=== PATIENT | male | born 1940 | race Caucasian/White ===

== ENCOUNTER 2021-10-09 07:17 | Inpatient (IN) ==
[2021-10-09] MEDS ORDERED: ACETAMINOPHEN 500 MG TABLET PO ONE (07:49)
[2021-10-09] MEDS ORDERED: IPRATROPIUM/ALBUTEROL 3 ML AMPUL.NEB NEB PRN (07:49)
--- NOTE | 2021-10-09 07:54 | Emergency Department Note ---
HPI General Chief complaint: Weakness Stated complaint: Pain throughout body Time Seen by Provider: 10/09/21 07:37 Source: EMS Mode of arrival: EMS Limitations: no limitations History of Present Illness HPI Narrative: He has been fully vaccinated against COVID-19Patient is a 81-year-old gentleman who arrives emergency department myalgias. The patient says since yesterday he has been having diffuse myalgias his legs hips shoulders neck and back. This was gradual in onset and has been waxing and waning in intensity. He notes that moving his extremities makes the pain worse. He recalls a similar episode a few years ago but cannot recall what caused it. He denies any associated fever or chills. He does not feel short of breath but notes that he has been having dyspnea on exertion recently and increased his oxygen use from nightly to throughout the day about 2 weeks ago. He does not have any associated chest pain or abdominal pain. He denies any recent nausea or vomiting. He tried taking Tylenol or ibuprofen last night without any improvement in his symptoms. Related Data Home Medications Medication Instructions Recorded Confirmed aspirin 81 mg tablet,delayed 81 mg PO QDAY 10/06/15 08/17/21 release calcium 1000/magnesium 500 1 tab PO QDAY 02/05/19 08/17/21 cholecalciferol (vitamin D3) 125 125 mcg PO QDAY 02/21/20 08/17/21 mcg (5,000 unit) tablet amlodipine 5 mg tablet 10 mg PO QDAY tab 08/10/21 08/17/21 isosorbide mononitrate 60 mg 60 mg PO QDAY tab 08/10/21 08/17/21 tablet,extended release 24 hr losartan 50 mg tablet 50 mg PO BID tab 08/10/21 08/17/21 Previous Rx's Medication Instructions Recorded finger oximeter #1 ea 05/10/19 nitroglycerin 0.4 mg sublingual 0.4 mg SUBLINGUAL Q5M PRN #25 tab 03/17/20 tablet albuterol sulfate 2.5 mg (3 mL) INHALATION Q6H PRN 04/16/20 #1080 ml clobetasol 0.05 % topical ointment 1 applic TOPICAL BID #60 g 11/04/20 folic acid 1 mg tablet 1 mg PO BID #180 tab 02/11/21 magnesium oxide 400 mg PO QDAY #90 cap 02/18/21 atorvastatin 40 mg tablet 40 mg PO QHS #90 tab 02/25/21 carvedilol 25 mg tablet 25 mg PO BID #180 tab 02/25/21 levothyroxine 25 mcg tablet 25 mcg PO QDAY #90 tab 02/25/21 pantoprazole 40 mg tablet,delayed 40 mg PO QDAY #90 tab 02/25/21 release prednisone 5 mg tablet 5 mg PO QDAY #90 tab 05/04/21 sodium bicarbonate 650 mg tablet 650 mg PO BID #180 tab 05/06/21 hydrochlorothiazide 25 mg tablet 25 mg PO QAM #90 tab 08/27/21 furosemide 20 mg tablet 20 mg PO QAM PRN #20 tab 09/17/21 Allergies Allergy/AdvReac Type Severity Reaction Status Date / Time levofloxacin [From Levaquin] AdvReac Mild Hypotension Verified 10/09/21 14:34 Review of Systems ROS ROS Narrative: Narrative: All systems ED: reviewed and negative except as stated. Constitutional: Denies fever or chills Respiratory: Denies cough PFSH Narrative Patient History Narrative: Narrative: Medical/Surgical/Family History All Active Problems (Updated 10/09/21 @ 15:10 by Kael Barba DO) Community acquired pneumonia (Acute) Bilateral lower extremity edema (Acute) Dyspnea on exertion (Acute) Medicare annual wellness visit, subsequent (Acute) Acute pain of left shoulder (Acute) Toe fracture, left (Acute) Borderline low blood pressure determined by examination (Acute) Iatrogenic adrenal insufficiency (Chronic) Cellulitis (Acute) Injury of left foot (Acute) Right foot injury (Acute) Secondary hyperparathyroidism of renal origin (Chronic) Anemia due to stage 3a chronic kidney disease (Chronic) Osteopenia (Acute) Medicare annual wellness visit, initial (Acute) Paronychia (Acute) CHF (congestive heart failure) (Chronic) Fall (Acute) Chronic kidney disease (CKD) stage G3a/A2, moderately decreased glomerular filtration rate (GFR) between 45-59 mL/min/1.73 square meter and albuminuria creatinine ratio between 30-299 mg/g (Chronic) Colon cancer screening (Acute) Renal artery stenosis in 1 of 2 vessels (Chronic) Diarrhea (Acute) Alcohol abuse (Chronic) Risk for falls (Chronic) Nocturnal hypoxemia (Chronic) Localized edema due to fluid overload (Chronic) Steroid dependent (Chronic) PAF (paroxysmal atrial fibrillation) (Chronic) Abdominal pain (Acute) Finger pain (Chronic) Colon polyp (Chronic) Fatigue (Chronic) 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) Erosive gastritis (Chronic) 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) Upper gastrointestinal hemorrhage (Chronic) Acute exacerbation of chronic obstructive airways disease (Chronic) Bronchitis (Chronic) Community acquired pneumonia (Chronic) Foot drop, right (Chronic) Metabolic Syndrome X (Chronic) Cubital tunnel syndrome of both upper extremities (Chronic) Hyperglycemia (Chronic) Hypertension (Chronic) Hypomagnesemia (Chronic) Gout (Chronic) Chronic obstructive pulmonary disease (Chronic) Hypertensive renal disease (Chronic) Hx of esophagogastroduodenoscopy (Chronic 12/17/14) Hx of colonoscopy (Chronic) Vitamin D deficiency (Chronic) Vitamin B 12 deficiency (Chronic) Thrombocytopenia (Chronic) Schatzki's ring (Chronic) Psoriasis (Chronic) Premature atrial contractions (Chronic) Polymyalgia rheumatica (Chronic) PNA (pneumonia) (Chronic) Peripheral vascular disease (Chronic) Paresthesia (Chronic) Overweight (Chronic) Neck pain (Chronic) Macrocytosis (Chronic 01/25/11) Low back pain (Chronic) Long-term current use of steroids (Chronic) Knee pain (Chronic) Hypothyroidism (acquired) (Chronic) Hypertension, essential (Chronic) Hyperlipidemia (Chronic) Hyperkalemia (Chronic) Hip pain (Chronic) Hx of gout (Chronic) Gastroesophageal reflux (Chronic) Gastritis (Chronic) Fatty liver disease, nonalcoholic (Chronic) Emphysema lung (Chronic) Dysmetabolic syndrome X (Chronic) Dermatitis (Chronic) DJD (degenerative joint disease) (Chronic) Simple cyst of kidney (Chronic) Coronary artery disease (Chronic 08/22/12) Colon polyp (Chronic 12/16/14) Vascular claudication (Chronic 04/01/13) Carotid stenosis (Chronic) Carotid bruit (Chronic 02/16/13) Atherosclerosis (Chronic) Anemia (Chronic) Abnormal transaminases (Chronic) Medical History Abnormal transaminases Acute exacerbation of chronic obstructive airways disease Acute exacerbation of chronic obstructive airways disease Resolved Continue albuterol nebs as needed Continue prednisone 10 mg daily Follows with pulmonology Acute kidney failure (08/21/08) Alcohol abuse Anemia Macrocytic. I believe it is improving. Labs from 12/05 look hemoconcentrated. Status post 1 unit PRBC and IV iron infusion in October 2019 Continue iron and vitamin C Continue to monitor CBC closely. Check CBC in 1 month. Iron studies are scheduled to be checked in 2 months by nephrology. Atherosclerosis Atrial fibrillation wWle in hospital with pneumonia Atrial fibrillation Carotid bruit (02/16/13) left>right Carotid stenosis Cellulitis Cellulitis Cerebrovascular accident Chest pain Recorded 08/14/12-also on 01/04/2007, 04/16/06; 12/21/10 Chronic obstructive pulmonary disease Follows with pulmonology. We will see them in 2 weeks. Does not qualify for oxygen concentrator based on ambulatory O2 today. Colon cancer screening Colonoscopy is planned, but we will have to cancel this until he gets his CABG. Colon polyp (12/16/14) TA HP Colon polyp 2014 Community acquired pneumonia Resolved with Augmentin and azithromycin Contusion of head COPD (chronic obstructive pulmonary disease) with chronic bronchitis Follows with pulmonology. Albuterol as needed Coronary artery disease (08/22/12) Status post PCI Continue medical management with aspirin, statin, beta-karla Follows with cardiology Cubital tunnel syndrome of both upper extremities Dermatitis 05/2011-chronic, of the lower extremities DJD (degenerative joint disease) Dysmetabolic syndrome X Emphysema lung Erosive gastritis Fall Ecchymosis on bilateral arms. Left arm with healing skin slip. Walker recommended at all times (currently using a cane). He has handrails on all his stairs at home. Fatty liver disease, nonalcoholic Foot drop, right Gastritis Gastroesophageal reflux Gout Hip pain recorded 03/23/08-bilateral Hx of gout Hx of urinary tract infection Hyperglycemia Hyperkalemia Hyperlipidemia Hypertension Hypertension, essential Moderately well-controlled on amlodipine 5 mg daily, Coreg 25 mg twice daily, hydrochlorothiazide 25 mg daily (increased last visit), and losartan 50 mg nightly. Encouraged improved compliance with low-sodium diet Hypertensive renal disease BP at goal in the clinic today imp to keep BP log given multiple medical issues Goal BP is less than 140/90 ct current medications follow low sodium diet exercise if possible Hypomagnesemia Hypothyroidism (acquired) TSH mildly elevated. Educated patient on timing of levothyroxine dose Recheck TSH in 6 weeks Injury of left foot Internal derangement of knee recorded 12/30/10 patellor erosion secondary to Cerclage wire Knee pain 05/2011-post tka Long-term current use of steroids Prednisone and triamcinolone Low back pain 05/2011 chronic low back pain Macrocytosis (01/25/11) Medicare annual wellness visit, initial Medicare annual wellness visit, subsequent Metabolic Syndrome X Myocardial infarction acute (12/22/10) Neck pain recorded 11/16/2010 OA Nocturnal hypoxemia Recommend patient continue oxygen supplementation at night Occlusion of right internal carotid artery Overweight Palpitations Paresthesia Right Leg Peripheral vascular disease severe. bilateral iliac artery stents PNA (pneumonia) Aspiration versus CAP Treated with Unasyn and azithromycin in the hospital, and then Augmentin on discharge. Completing Augmentin tomorrow. Resolved. Polymyalgia rheumatica Increased back to prednisone 10 mg daily as above Post-polypectomy bleeding Resolved Premature atrial contractions Psoriasis Most noticeable pretibial areas Psoriatic arthritis Pretibial psoriasis skin lesions Renal artery stenosis in 1 of 2 vessels Right renal artery 50 to 70% stenosis. Blood pressure currently well controlled, but consider further work-up and possible stenting if this becomes a problem Right foot injury Risk for falls Schatzki's ring Simple cyst of kidney bilateral Thoracic back pain Thrombocytopenia H/O Upper gastrointestinal hemorrhage post gastric polypectomy Vascular claudication (04/01/13) Legs Vitamin B 12 deficiency H/O Vitamin D deficiency H/O Surgical History H/O cardiac catheterization (~11/15/19) And coronary angiography by Dr. Jarrod Griffin History of carotid endarterectomy 02/2015 History of intravascular stent placement 11/2010 Multi-RCA 03/2006 and right iliac stent. Also [place] x 2 RCA + PRO/RCA 11/2010 RE do bilateral legs 12/2014- Dr Jon Hx of angioplasty Hx of cardiac catheterization 12/21/2010 and PCI Hx of cataract surgery 12/2005 Hx of colonoscopy 08/30/07-AP, HP. 12/16/14-TA & HP-5 year follow up. Hx of coronary angioplasty Hx of esophagogastroduodenoscopy (12/17/14) 12/17/14-erosive esophagitis and stricture. 03/16/17-gastric polypectomy and erosive gastritis. 03/17/17-GI bleed post polypectomy Hx of foot surgery Ankle brachial indices Hx of knee surgery recorded 04/02/87 and 11/01--Right 10/31/12 had hardware removed from right knee Hx of plastic surgery 1960' nose Hx of thumb surgery Hx of tonsillectomy recorded 04/02/87 Hx of total knee arthroplasty 2012, 12/2008 Right knee x's 3 2007 Family History mother Malignant neoplasm, Onset Age: 72 father Cerebrovascular accident (CVA), Onset Age: 49 Social History Smoking Status: Former smoker Alcohol Intake Frequency: a few times a month Substance Use: does not use Exam Narrative Narrative: I reviewed the vital signs. Gen -patient is awake and alert and in no acute distress. The patient is well groomed. HEENT -head is atraumatic. There is no conjunctival pallor or scleral icterus. Mucous membranes are moist. CV -S1-S2 regular rate and rhythm. Peripheral pulses are palpable. There is no JVD. Resp -breathing is nonlabored. Lungs are clear to auscultation bilaterally. There is no cyanosis. GI - Abdomen is soft and nontender to palpation. There is no guarding or rebound tenderness. Derm -skin is warm and dry. There is no visible rash. MSK -present extremities are atraumatic. Psych -patient has appropriate affect. The patient does not appear internally stimulated. Neuro -patient answers questions appropriately with fluent speech. Patient moves all present extremities equally. General Limitations: no limitations Course Vital Signs Vital signs: Vital Signs Temperature 98.0 F 10/09/21 07:19 Pulse Rate 90 10/09/21 07:19 Respiratory Rate 18 10/09/21 07:19 Blood Pressure 168/62 10/09/21 07:19 Pulse Oximetry (%) 93 10/09/21 07:19 Temperature 98.8 F 10/09/21 14:26 Pulse Rate 76 10/09/21 14:26 Respiratory Rate 17 10/09/21 14:26 Blood Pressure 181/71 10/09/21 14:26 Pulse Oximetry (%) 93 10/09/21 14:26 [facility] Narrative Medical decision making narrative: Patient presents with generalized myalgias. He is also had an increase in his baseline oxygen requirement. Chest x-ray reveals right-sided infiltrate. Patient to need to have found weakness and fatigue associated with his symptoms and was unable to arise under his own power from the hospital bed. Given this his new oxygen requirement and myalgias I recommend he be admitted for inpatient treatment of his community-acquired pneumonia. He was agreeable with the plan. I discussed the patient's history examination and diagnostic findings with Dr. Musa, who agrees with the plan of care and accepts admission. Lab Data Lab results reviewed: Yes I reviewed the patient's lab results. Result diagrams: 10/09/21 07:59 Labs: Lab Results 10/09/21 10/09/21 10/09/21 Range/Units 07:50 07:50 07:59 WBC 5.4 (4.5-11.0) K/mcL RBC 3.04 L (4.63-6.08) M/mcL Hgb 8.7 L (13.7-17.5) g/dL Hct 27.5 L (40.1-51.0) % POC Hct (41-55) % MCV 90.5 (80.0-100.0) fL MCH 28.6 (26.0-34.0) pg MCHC 31.6 (31.0-36.0) g/dL RDW 13.9 (11.5-14.5) % Plt Count 219 (140-440) K/mcL MPV 10.4 (7.4-10.4) fL Neut % (Auto) 55.8 (38.0-78.0) % Lymph % (Auto) 23.4 (15.5-49.0) % Woodward % (Auto) 19.5 H (1.0-12.0) % Eos % (Auto) 1.1 (0.0-7.0) % Baso % (Auto) 0.2 (0.0-2.0) % Lymph # (Auto) 1.26 L (1.50-4.80) K/mcL Woodward # (Auto) 1.05 H (0.10-0.90) K/mcL Eos # (Auto) 0.06 (0.00-0.70) K/mcL Baso # (Auto) 0.01 (0.00-0.30) K/mcL Absolute Neutrophils 3.00 (1.80-8.00) K/mcL POC Sodium (133-145) mEq/L POC Potassium (3.3-5.1) mEql/L POC Chloride (96-108) mEq/L POC Total CO2 (22-30) mmol/L POC BUN (6-20) mg/dL POC Creatinine (0.6-1.2) mg/dL POC Glucose (70-105) mg/dL POC WB Ioniz Calcium (1.16-1.32) mmEq/L Magnesium (1.6-2.5) mg/dL Total Creatine Kinase (24-195) U/L C-Reactive Protein 10.20 H (0.03-0.80) mg/dL Procalcitonin 0.19 H (<0.10) ng/mL 10/09/21 Range/Units 07:59 WBC (4.5-11.0) K/mcL RBC (4.63-6.08) M/mcL Hgb (13.7-17.5) g/dL Hct (40.1-51.0) % POC Hct 27 L (41-55) % MCV (80.0-100.0) fL MCH (26.0-34.0) pg MCHC (31.0-36.0) g/dL RDW (11.5-14.5) % Plt Count (140-440) K/mcL MPV (7.4-10.4) fL Neut % (Auto) (38.0-78.0) % Lymph % (Auto) (15.5-49.0) % Woodward % (Auto) (1.0-12.0) % Eos % (Auto) (0.0-7.0) % Baso % (Auto) (0.0-2.0) % Lymph # (Auto) (1.50-4.80) K/mcL Woodward # (Auto) (0.10-0.90) K/mcL Eos # (Auto) (0.00-0.70) K/mcL Baso # (Auto) (0.00-0.30) K/mcL Absolute Neutrophils (1.80-8.00) K/mcL POC Sodium 141 (133-145) mEq/L POC Potassium 3.6 (3.3-5.1) mEql/L POC Chloride 101 (96-108) mEq/L POC Total CO2 26 (22-30) mmol/L POC BUN 24 H (6-20) mg/dL POC Creatinine 1.3 H (0.6-1.2) mg/dL POC Glucose 94 (70-105) mg/dL POC WB Ioniz Calcium 1.17 (1.16-1.32) mmEq/L Magnesium 1.6 (1.6-2.5) mg/dL Total Creatine Kinase 57 (24-195) U/L C-Reactive Protein (0.03-0.80) mg/dL Procalcitonin (<0.10) ng/mL ED POC Tests ED POC Tests: MAGDA - Influenza A Negative MAGDA - Influenza B Negative MAGDA - SARS Antigen Negative Discharge Plan Patient/Caregiver Discharge Instructions Pt seen by GROUP LEADER/PA only: No Clinical Impression: Community acquired pneumonia Patient Disposition: Xfer As Inpt ([facility]) Condition: Good Discharge Date/Time: 10/09/21 14:23
[2021-10-09 08:05] LABS: POC Blood Urea Nitrogen 24 mg/dL (6-20); POC CO2 26 mmol/L (22-30); POC Calcium, Ionized 1.17 mmEq/L (1.16-1.32); POC Chloride 101 mEq/L (96-108); POC Creatinine 1.3 mg/dL (0.6-1.2); POC Glucose, Random 94 mg/dL (70-105); POC Hematocrit 27 % (41-55); POC Potassium 3.6 mEql/L (3.3-5.1); POC Sodium 141 mEq/L (133-145)
[2021-10-09 09:03] LABS: Creatine Kinase 57 U/L (24-195)
[2021-10-09 09:10] LABS: Basophils # (Auto) 0.01 K/mcL (0.00-0.30); Basophils % (Auto) 0.2 % (0.0-2.0); Eosinophils # (Auto) 0.06 K/mcL (0.00-0.70); Eosinophils % (Auto) 1.1 % (0.0-7.0); Hematocrit 27.5 % (40.1-51.0); Hemoglobin 8.7 g/dL (13.7-17.5); Lymphocytes # (Auto) 1.26 K/mcL (1.50-4.80); Lymphocytes % (Auto) 23.4 % (15.5-49.0); Mean Cell Volume 90.5 fL (80.0-100.0); Mean Corpuscular HGB Conc 31.6 g/dL (31.0-36.0); Mean Platelet Volume 10.4 fL (7.4-10.4); Monocytes # (Auto) 1.05 K/mcL (0.10-0.90); Monocytes % (Auto) 19.5 % (1.0-12.0); Neutrophils % (Auto) 55.8 % (38.0-78.0); Platelet Count 219 K/mcL (140-440); RBC 3.04 M/mcL (4.63-6.08); Red Cell Distribution Width 13.9 % (11.5-14.5); WBC 5.4 K/mcL (4.5-11.0)
--- NOTE | 2021-10-09 10:18 | XRay Report ---
CLINICAL INFORMATION: Pneumonia COMPARISON: 08/10/2021 TECHNIQUE: PA and Lateral views FINDINGS: The heart size, mediastinum and pulmonary vessels are unremarkable. Small left basilar infiltrate has progressed from previous study. Small left pleural effusion noted. Small right basilar infiltrate has developed. There are no effusions. The bones and soft tissues are within normal limits. IMPRESSION: New small right basilar infiltrate. Small left basilar infiltrate and effusion slightly progressed. Interpreted and Authenticated by: Murphy Temple 10/09/21
[2021-10-09] MEDS ORDERED: cefTRIAXone 1 GM VIAL IV ONE (11:55)
[2021-10-09] MEDS ORDERED: DOXYCYCLINE 100 MG in DEXTROSE 5% IN WATER 100 ML IV ONE (11:55)
--- NOTE | 2021-10-09 13:41 | Internal Med History&Physical ---
HPI History of Present Illness Patient information: Note initiated : 10/09/21 at 1:33 pm Service Date, if different from initiated Date: [] Patient: Kike Ramirez a 81 y/o M admitted on for Pain throughout body. Chief Complaint: [] History of present illness: Mr. Ramirez is a 81 year old M Presents to ED with body aches as well as shortness of breath. He has been using his oxygen during the day over the past week typically only uses at night. Has a history of COPD. Also has a history of polymyalgia rheumatica for which she is on prednisone. He complains of chills but denies fever. He said he does not have much of a cough. In the ED he had sats 84% but jumped up to 4 L and then brought back down to 2 L. Afebrile. Chest x-ray with new small right basilar infiltrate small left basal infiltrate. When asked about aspiration he says occasionally food or drink feels like he goes down the wrong pipe. Review of Systems: Pertinent positives as above. Denies headache/fever/nausea/vomiting/chest or abdominal pain/diarrhea. Remaining 10 point review of system reviewed negative PFSH PFSH All Active Problems Bilateral lower extremity edema (Acute) Dyspnea on exertion (Acute) Medicare annual wellness visit, subsequent (Acute) Acute pain of left shoulder (Acute) Toe fracture, left (Acute) Borderline low blood pressure determined by examination (Acute) Iatrogenic adrenal insufficiency (Chronic) Cellulitis (Acute) Injury of left foot (Acute) Right foot injury (Acute) Secondary hyperparathyroidism of renal origin (Chronic) Anemia due to stage 3a chronic kidney disease (Chronic) Osteopenia (Acute) Medicare annual wellness visit, initial (Acute) Paronychia (Acute) CHF (congestive heart failure) (Chronic) Fall (Acute) Chronic kidney disease (CKD) stage G3a/A2, moderately decreased glomerular filtration rate (GFR) between 45-59 mL/min/1.73 square meter and albuminuria creatinine ratio between 30-299 mg/g (Chronic) Colon cancer screening (Acute) Renal artery stenosis in 1 of 2 vessels (Chronic) Diarrhea (Acute) Alcohol abuse (Chronic) Risk for falls (Chronic) Nocturnal hypoxemia (Chronic) Localized edema due to fluid overload (Chronic) Steroid dependent (Chronic) PAF (paroxysmal atrial fibrillation) (Chronic) Abdominal pain (Acute) Finger pain (Chronic) Colon polyp (Chronic) Fatigue (Chronic) 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) Erosive gastritis (Chronic) 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) Upper gastrointestinal hemorrhage (Chronic) Acute exacerbation of chronic obstructive airways disease (Chronic) Bronchitis (Chronic) Community acquired pneumonia (Chronic) Foot drop, right (Chronic) Metabolic Syndrome X (Chronic) Cubital tunnel syndrome of both upper extremities (Chronic) Hyperglycemia (Chronic) Hypertension (Chronic) Hypomagnesemia (Chronic) Gout (Chronic) Chronic obstructive pulmonary disease (Chronic) Hypertensive renal disease (Chronic) Hx of esophagogastroduodenoscopy (Chronic 12/17/14) Hx of colonoscopy (Chronic) Vitamin D deficiency (Chronic) Vitamin B 12 deficiency (Chronic) Thrombocytopenia (Chronic) Schatzki's ring (Chronic) Psoriasis (Chronic) Premature atrial contractions (Chronic) Polymyalgia rheumatica (Chronic) PNA (pneumonia) (Chronic) Peripheral vascular disease (Chronic) Paresthesia (Chronic) Overweight (Chronic) Neck pain (Chronic) Macrocytosis (Chronic 01/25/11) Low back pain (Chronic) Long-term current use of steroids (Chronic) Knee pain (Chronic) Hypothyroidism (acquired) (Chronic) Hypertension, essential (Chronic) Hyperlipidemia (Chronic) Hyperkalemia (Chronic) Hip pain (Chronic) Hx of gout (Chronic) Gastroesophageal reflux (Chronic) Gastritis (Chronic) Fatty liver disease, nonalcoholic (Chronic) Emphysema lung (Chronic) Dysmetabolic syndrome X (Chronic) Dermatitis (Chronic) DJD (degenerative joint disease) (Chronic) Simple cyst of kidney (Chronic) Coronary artery disease (Chronic 08/22/12) Colon polyp (Chronic 12/16/14) Vascular claudication (Chronic 04/01/13) Carotid stenosis (Chronic) Carotid bruit (Chronic 02/16/13) Atherosclerosis (Chronic) Anemia (Chronic) Abnormal transaminases (Chronic) Medical History Abnormal transaminases Acute exacerbation of chronic obstructive airways disease Acute exacerbation of chronic obstructive airways disease Resolved Continue albuterol nebs as needed Continue prednisone 10 mg daily Follows with pulmonology Acute kidney failure (08/21/08) Alcohol abuse Anemia Macrocytic. I believe it is improving. Labs from 12/05 look hemoconcentrated. Status post 1 unit PRBC and IV iron infusion in October 2019 Continue iron and vitamin C Continue to monitor CBC closely. Check CBC in 1 month. Iron studies are scheduled to be checked in 2 months by nephrology. Atherosclerosis Atrial fibrillation wWle in hospital with pneumonia Atrial fibrillation Carotid bruit (02/16/13) left>right Carotid stenosis Cellulitis Cellulitis Cerebrovascular accident Chest pain Recorded 08/14/12-also on 01/04/2007, 04/16/06; 12/21/10 Chronic obstructive pulmonary disease Follows with pulmonology. We will see them in 2 weeks. Does not qualify for oxygen concentrator based on ambulatory O2 today. Colon cancer screening Colonoscopy is planned, but we will have to cancel this until he gets his CABG. Colon polyp (12/16/14) TA HP Colon polyp 2014 Community acquired pneumonia Resolved with Augmentin and azithromycin Contusion of head COPD (chronic obstructive pulmonary disease) with chronic bronchitis Follows with pulmonology. Albuterol as needed Coronary artery disease (08/22/12) Status post PCI Continue medical management with aspirin, statin, beta-karla Follows with cardiology Cubital tunnel syndrome of both upper extremities Dermatitis 05/2011-chronic, of the lower extremities DJD (degenerative joint disease) Dysmetabolic syndrome X Emphysema lung Erosive gastritis Fall Ecchymosis on bilateral arms. Left arm with healing skin slip. Walker recommended at all times (currently using a cane). He has handrails on all his stairs at home. Fatty liver disease, nonalcoholic Foot drop, right Gastritis Gastroesophageal reflux Gout Hip pain recorded 03/23/08-bilateral Hx of gout Hx of urinary tract infection Hyperglycemia Hyperkalemia Hyperlipidemia Hypertension Hypertension, essential Moderately well-controlled on amlodipine 5 mg daily, Coreg 25 mg twice daily, hydrochlorothiazide 25 mg daily (increased last visit), and losartan 50 mg nightly. Encouraged improved compliance with low-sodium diet Hypertensive renal disease BP at goal in the clinic today imp to keep BP log given multiple medical issues Goal BP is less than 140/90 ct current medications follow low sodium diet exercise if possible Hypomagnesemia Hypothyroidism (acquired) TSH mildly elevated. Educated patient on timing of levothyroxine dose Recheck TSH in 6 weeks Injury of left foot Internal derangement of knee recorded 12/30/10 patellor erosion secondary to Cerclage wire Knee pain 05/2011-post tka Long-term current use of steroids Prednisone and triamcinolone Low back pain 05/2011 chronic low back pain Macrocytosis (01/25/11) Medicare annual wellness visit, initial Medicare annual wellness visit, subsequent Metabolic Syndrome X Myocardial infarction acute (12/22/10) Neck pain recorded 11/16/2010 OA Nocturnal hypoxemia Recommend patient continue oxygen supplementation at night Occlusion of right internal carotid artery Overweight Palpitations Paresthesia Right Leg Peripheral vascular disease severe. bilateral iliac artery stents PNA (pneumonia) Aspiration versus CAP Treated with Unasyn and azithromycin in the hospital, and then Augmentin on discharge. Completing Augmentin tomorrow. Resolved. Polymyalgia rheumatica Increased back to prednisone 10 mg daily as above Post-polypectomy bleeding Resolved Premature atrial contractions Psoriasis Most noticeable pretibial areas Psoriatic arthritis Pretibial psoriasis skin lesions Renal artery stenosis in 1 of 2 vessels Right renal artery 50 to 70% stenosis. Blood pressure currently well controlled, but consider further work-up and possible stenting if this becomes a problem Right foot injury Risk for falls Schatzki's ring Simple cyst of kidney bilateral Thoracic back pain Thrombocytopenia H/O Upper gastrointestinal hemorrhage post gastric polypectomy Vascular claudication (04/01/13) Legs Vitamin B 12 deficiency H/O Vitamin D deficiency H/O Surgical History H/O cardiac catheterization (~11/15/19) And coronary angiography by Dr. Jarrod Griffin History of carotid endarterectomy 02/2015 History of intravascular stent placement 11/2010 Multi-RCA 03/2006 and right iliac stent. Also Stanet x 2 RCA + PRO/RCA 11/2010 RE do bilateral legs 12/2014- Dr Jon Hx of angioplasty Hx of cardiac catheterization 12/21/2010 and PCI Hx of cataract surgery 12/2005 Hx of colonoscopy 08/30/07-AP, HP. 12/16/14-TA & HP-5 year follow up. Hx of coronary angioplasty Hx of esophagogastroduodenoscopy (12/17/14) 12/17/14-erosive esophagitis and stricture. 03/16/17-gastric polypectomy and erosive gastritis. 03/17/17-GI bleed post polypectomy Hx of foot surgery Ankle brachial indices Hx of knee surgery recorded 04/02/87 and 11/01--Right 10/31/12 had hardware removed from right knee Hx of plastic surgery 1960's nose Hx of thumb surgery Hx of tonsillectomy recorded 04/02/87 Hx of total knee arthroplasty 2011, 12/2008 Right knee x's 3 2007 Family History mother Malignant neoplasm, Onset Age: 72 father Cerebrovascular accident (CVA), Onset Age: 49 Social History household members: alone housing: house lives independently: Yes marital status: education level: high school occupational status: retired smoking status: Former smoker alcohol intake frequency: a few times a month substance use type: does not use MEDS/ALLERGIES Home Medications and Allergies Home Medications Medication Instructions Recorded Confirmed Type aspirin 81 mg tablet,delayed 81 mg PO QDAY 10/06/15 08/17/21 History release calcium 1000/magnesium 500 1 tab PO QDAY 02/05/19 08/17/21 History finger oximeter #1 ea 05/10/19 08/17/21 Rx cholecalciferol (vitamin D3) 125 125 mcg PO QDAY 02/21/20 08/17/21 History mcg (5,000 unit) tablet nitroglycerin 0.4 mg sublingual 0.4 mg SUBLINGUAL Q5M PRN #25 tab 03/17/20 08/17/21 Rx tablet albuterol sulfate 2.5 mg (3 mL) INHALATION Q6H PRN 04/16/20 08/17/21 Rx #1080 ml clobetasol 0.05 % topical ointment 1 applic TOPICAL BID #60 g 11/04/20 08/17/21 Rx folic acid 1 mg tablet 1 mg PO BID #180 tab 02/11/21 08/17/21 Rx magnesium oxide 400 mg PO QDAY #90 cap 02/18/21 08/17/21 Rx atorvastatin 40 mg tablet 40 mg PO QHS #90 tab 02/25/21 08/17/21 Rx carvedilol 25 mg tablet 25 mg PO BID #180 tab 02/25/21 08/17/21 Rx levothyroxine 25 mcg tablet 25 mcg PO QDAY #90 tab 02/25/21 08/17/21 Rx pantoprazole 40 mg tablet,delayed 40 mg PO QDAY #90 tab 02/25/21 08/17/21 Rx release prednisone 5 mg tablet 5 mg PO QDAY #90 tab 05/04/21 08/17/21 Rx sodium bicarbonate 650 mg tablet 650 mg PO BID #180 tab 05/06/21 08/17/21 Rx amlodipine 5 mg tablet 10 mg PO QDAY tab 08/10/21 08/17/21 History isosorbide mononitrate 60 mg 60 mg PO QDAY tab 08/10/21 08/17/21 History tablet,extended release 24 hr losartan 50 mg tablet 50 mg PO BID tab 08/10/21 08/17/21 History hydrochlorothiazide 25 mg tablet 25 mg PO QAM #90 tab 08/27/21 Rx furosemide 20 mg tablet 20 mg PO QAM PRN #20 tab 09/17/21 Rx Allergies Allergy/AdvReac Type Severity Reaction Status Date / Time levofloxacin [From [facility]] AdvReac Severe Hypotension Verified 10/09/21 07:18 EXAM Constitutional Vitals: Temp Pulse Resp BP Pulse Ox 98.0 F 67 18 135/62 99 10/09/21 07:19 10/09/21 12:01 10/09/21 12:15 10/09/21 12:01 10/09/21 12:15 Exam: General: Alert, Awake, No acute Distress Eyes/N/T: EOMI, PERRL, dry MM Head/Neck: neck supple, normocephalic atraumatic CV: RRR, No murmurs, normal s1/s2 Pulm: Clear b/l laterally, no wheezing/rhonchi/rales Abd: soft, nontender, +BS x4 Ext: no clubbing/cyanosis/edema Neuro: Alert, no focal deficits, moves all extremities, CN 2-12 grossly intact, symmetrical strength b/l upper/lower, sensations intact b/l upper/lower Skin: warm/dry DATA Data Completed and Pending Labs: Labs from last 24 hours 10/09/21 10/09/21 10/09/21 07:59 07:59 07:50 WBC 5.4 RBC 3.04 L Hgb 8.7 L Hct 27.5 L POC Hct 27 L MCV 90.5 MCH 28.6 MCHC 31.6 RDW 13.9 Plt Count 219 MPV 10.4 Neut % (Auto) 55.8 Lymph % (Auto) 23.4 Wheeler % (Auto) 19.5 H Eos % (Auto) 1.1 Baso % (Auto) 0.2 Lymph # (Auto) 1.26 L Wheeler # (Auto) 1.05 H Eos # (Auto) 0.06 Baso # (Auto) 0.01 Absolute Neutrophils 3.00 ESR Pending POC Sodium 141 POC Potassium 3.6 POC Chloride 101 POC Total CO2 26 POC BUN 24 H POC Creatinine 1.3 H POC Glucose 94 POC WB Ioniz Calcium 1.17 Magnesium 1.6 Total Creatine Kinase 57 C-Reactive Protein Procalcitonin 10/09/21 10/09/21 07:50 07:50 WBC RBC Hgb Hct POC Hct MCV MCH MCHC RDW Plt Count MPV Neut % (Auto) Lymph % (Auto) Wheeler % (Auto) Eos % (Auto) Baso % (Auto) Lymph # (Auto) Wheeler # (Auto) Eos # (Auto) Baso # (Auto) Absolute Neutrophils ESR POC Sodium POC Potassium POC Chloride POC Total CO2 POC BUN POC Creatinine POC Glucose POC WB Ioniz Calcium Magnesium Total Creatine Kinase C-Reactive Protein Pending Procalcitonin Pending A/P Narrative A/P Narrative: A: *Pneumonia versus aspiration pneumonitis: *Acute hypoxic respiratory failure: *COPD (on 2L@night): *CAD/CVD: on asa/statin *CKD III: *Anemia, chronic *Polymyalgia rheumatica: On prednisone *HTN/HLD: *GERD: *Hypothyroidism: P: -Rocephin/azithromycin, pending BC/SC -Supplemental O2 wean -ST eval -IS/Acapella, prn nebs -rvp/strep -cont home asa/statin/imdur -Clarify home medications -PT/OT -ppx: Lovenox/home PPI DNR Time Spent With Patient Time: Total time spent is greater than 50% in coordination of care (as documented) at patient's floor/unit and/or counseling patient:
[2021-10-09] MEDS ORDERED: POLYETHYLENE GLYCOL 3350 17 GM PACKET PO PRN (14:26)
[2021-10-09] MEDS ORDERED: POTASSIUM CHLORIDE 40 MEQ in DEXTROSE 5% IN WATER 500 ML IV PRN (14:26)
[2021-10-09] MEDS ORDERED: 0.9 % SODIUM CHLORIDE 1,000 ML IV SCH (14:26)
[2021-10-09] MEDS ORDERED: ONDANSETRON 4 MG/2 ML VIAL IV PRN (14:26)
[2021-10-09] MEDS ORDERED: SENNOSIDES 1 TABLET PO PRN (14:26)
[2021-10-09] MEDS ORDERED: MAGNESIUM SULFATE 2 GM/50 ML BAG IV PRN (14:26)
[2021-10-09] MEDS ORDERED: LABETALOL 5 MG/ML ML IV PRN (14:26)
[2021-10-09] MEDS ORDERED: POTASSIUM CHLORIDE 20 MEQ TABLET PO PRN ×2 (14:26)
[2021-10-09] MEDS: cefTRIAXone 2 GM in DEXTROSE 5% IN WATER 50 ML IV SCH (15:28)
[2021-10-09] MEDS: AZITHROMYCIN 500 MG in DEXTROSE 5% IN WATER 250 ML IV SCH (15:33)
[2021-10-09] MEDS: 0.9 % SODIUM CHLORIDE 10 ML SYRINGE IV SCH ×2 (15:40→20:59)
[2021-10-09] MEDS: ACETAMINOPHEN 325 MG TABLET PO PRN (20:57)
[2021-10-09] MEDS: DOCUSATE SODIUM 100 MG CAPSULE PO SCH (20:59)
[2021-10-10] MEDS: ACETAMINOPHEN 325 MG TABLET PO PRN ×2 (03:11→08:54)
[2021-10-10] MEDS: 0.9 % SODIUM CHLORIDE 10 ML SYRINGE IV SCH ×3 (05:36→20:51)
[2021-10-10 06:50] LABS: Hematocrit 26.1 % (40.1-51.0); Hemoglobin 8.2 g/dL (13.7-17.5); Mean Cell Volume 90.6 fL (80.0-100.0); Mean Corpuscular HGB Conc 31.4 g/dL (31.0-36.0); Mean Platelet Volume 10.3 fL (7.4-10.4); Platelet Count 178 K/mcL (140-440); RBC 2.88 M/mcL (4.63-6.08); WBC 6.9 K/mcL (4.5-11.0)
[2021-10-10 07:30] LABS: ALT/SGPT 22 U/L (<40); AST/SGOT 36 U/L (<40); Albumin 2.7 gm/dL (3.2-5.2); Albumin/Globulin Ratio 0.9 (1.0-2.3); Alkaline Phosphatase 63 U/L (39-117); Bilirubin,Direct 0.3 mg/dL (<0.3); Bilirubin,Total 0.8 mg/dL (0.1-1.0); Blood Urea Nitrogen 23 mg/dL (8-23); Calcium 8.5 mg/dL (8.6-10.4); Carbon Dioxide 20 mmol/L (22-30); Chloride 98 mmol/L (96-108); Glomerular Filtration Rate 52; Glucose 60 mg/dL (70-105); Lactate Dehydrogenase 209 U/L (135-225); Phosphorous 3.3 mg/dL (2.5-4.5); Triglycerides 84 mg/dL (<150); Uric Acid 8.1 mg/dL (2.5-8.0)
[2021-10-10] MEDS: PANTOPRAZOLE 40 MG TABLET PO SCH (07:44)
[2021-10-10 07:49] LABS: Band Neutrophils % 1 % (0-10); Eosinophils % (Manual) 1 % (0-7); Hypochromasia 1+ (None Seen); Lymphocytes % 18 % (15-49); Monocytes % (Manual) 14 % (1-12); Platelet Estimate NORMAL (Normal); RBC Morphology ABNORMAL (Normal); Reactive Lymphocytes 1 % (0-2); Segmented Neutrophils % 65 % (38-78)
[2021-10-10] MEDS ORDERED: predniSONE 5 MG TABLET PO SCH (08:00)
[2021-10-10] MEDS ORDERED: predniSONE 1 MG TABLET PO SCH (08:00)
--- NOTE | 2021-10-10 08:20 | Internal Med Progress Note ---
SUBJECTIVE Subjective Patient information: Note initiated : 10/10/21 at 8:13 am Service Date, if different from initiated Date: [] Patient: Kike Ramirez a 81 y/o M admitted on 10/09/21 for Pain throughout body. Chief Complaint: [] Interval history: History of present illness: Mr. Ramirez is a 81 year old M Presents to ED with body aches as well as shortness of breath. He has been using his oxygen during the day over the past week typically only uses at night. Has a history of COPD. Also has a history of polymyalgia rheumatica for which she is on prednisone. He complains of chills but denies fever. He said he does not have much of a cough. In the ED he had sats 84% but jumped up to 4 L and then brought back down to 2 L. Afebrile. Chest x-ray with new small right basilar infiltrate small left basal infiltrate. When asked about aspiration he says occasionally food or drink feels like he goes down the wrong pipe. 10/10 Patient states he slept poorly. Says he has achy hands and feels are little swollen. Denies coughing. Does not clinically feel short of breath at rest. Review of Systems: denies headache/fever/chills/nausea/vomiting/chest or abdominal pain/diarrhea. Otherwise see above. Constitutional Vitals: Vital Signs Temp Pulse Resp BP Pulse Ox 98.6 F 63 18 168/64 96 10/10/21 07:10 10/10/21 07:10 10/10/21 07:10 10/10/21 07:10 10/10/21 07:10 Period Temp Pulse Resp BP Sys/Bustamante Pulse Ox Last 24 Hr 98.6 F-100.2 F 58-84 17-22 111-181/51-84 84-100 Intake and Output 10/09/21 10/10/21 10/10/21 21:59 05:59 13:59 Intake Total 350 1600 Output Total 350 225 Balance 0 1375 Weight 65.998 kg Intake & Output: Intake & Output 10/09/21 10/10/21 10/10/21 21:59 05:59 13:59 Intake Total 350 1600 Output Total 350 225 Balance 0 1375 Weight 65.998 kg Intake: IV 350 1000 Sodium Chloride 0.9% 1,000 ml @ 1000 100 mls/hr IV .Q10H [facility] Rx#: [id number] Zithromax 500 mg In Dextrose 5% 250 in Water 250 ml @ 250 mls/hr IV Q24H [facility] Rx#:[id number] Vibramycin 100 mg In Dextrose 5 100 % in Water 100 ml @ 100 mls/hr IV ONCE ONE Rx#:[id number] Oral 600 Output: Void Amount 350 225 Other: Urine Appearance Clear Clear Urine Color Bright Yellow Dark Yellow Urine Odor Normal Exam: General: Alert, Awake, No acute Distress Eyes/N/T: EOMI, Head/Neck: neck supple, CV: RRR, No murmurs, Pulm: Clear b/l laterally, no wheezing/rhonchi/rales Abd: soft, nontender, +BS x4 Ext: no clubbing/cyanosis/edema, hand slighly puffy R>L Neuro: Alert, no focal deficits, moves all extremities, Skin: warm/dry OBJ DATA Labs CBC & Chem 7: 10/10/21 05:41 10/10/21 05:41 Labs: Abnormal Lab Results 10/10/21 10/10/21 10/10/21 05:41 05:41 05:41 RBC 2.88 L Hgb 8.2 L Hct 26.1 L POC Hct Rolette % (Auto) Lymph # (Auto) Rolette # (Auto) Monocytes % (Manual) 14 H RBC Morphology Abnormal A Hypochromasia 1+ A Carbon Dioxide 20 L POC BUN Creatinine 1.3 H POC Creatinine Glucose 60 L Uric Acid 8.1 H Calcium 8.5 L Magnesium 1.5 L Direct Bilirubin 0.3 H C-Reactive Protein 20.40 H Total Protein 5.7 L Albumin 2.7 L Albumin/Globulin Ratio 0.9 L Procalcitonin 10/09/21 10/09/21 10/09/21 07:59 07:59 07:50 RBC 3.04 L Hgb 8.7 L Hct 27.5 L POC Hct 27 L Rolette % (Auto) 19.5 H Lymph # (Auto) 1.26 L Rolette # (Auto) 1.05 H Monocytes % (Manual) RBC Morphology Hypochromasia Carbon Dioxide POC BUN 24 H Creatinine POC Creatinine 1.3 H Glucose Uric Acid Calcium Magnesium Direct Bilirubin C-Reactive Protein Total Protein Albumin Albumin/Globulin Ratio Procalcitonin 0.19 H 10/09/21 07:50 RBC Hgb Hct POC Hct Rolette % (Auto) Lymph # (Auto) Rolette # (Auto) Monocytes % (Manual) RBC Morphology Hypochromasia Carbon Dioxide POC BUN Creatinine POC Creatinine Glucose Uric Acid Calcium Magnesium Direct Bilirubin C-Reactive Protein 10.20 H Total Protein Albumin Albumin/Globulin Ratio Procalcitonin Meds: Medications Acetaminophen (Acetaminophen 325 Mg Tablet) 650 mg PO Q6HP PRN; Protocol PRN Reason: Per Pain Protocol/Fever > 101 Last Admin: 10/10/21 03:11 Dose: 650 mg Documented by: Albuterol/Ipratropium (Ipratropium/Albuterol 3 Ml Ampul.Neb) 3 ml NEB Q4HP PRN PRN Reason: Shortness Of Breath Docusate Sodium (Docusate Sodium 100 Mg Capsule) 100 mg PO BID [facility] Last Admin: 10/09/21 20:59 Dose: 100 mg Documented by: Enoxaparin Sodium (Enoxaparin 40 Mg/0.4 Ml Syringe) 40 mg SQ DAILY [facility] Potassium Chloride 40 meq/ (Dextrose) 520 mls @ 130 mls/hr IV UD PRN PRN Reason: Potassium < 3 Magnesium Sulfate (Magnesium Sulfate) 2 gm in 50 mls @ 50 mls/hr IV UD PRN PRN Reason: Magnesium </= 1.6 Ceftriaxone Sodium 2 gm/ (Dextrose) 50 mls @ 100 mls/hr IV Q24H [facility]; Protocol Last Admin: 10/09/21 15:28 Dose: Not Given Documented by: Azithromycin 500 mg/ Dextrose 250 mls @ 250 mls/hr IV Q24H [facility]; Protocol Stop: 10/11/21 15:59 Last Infusion: 10/09/21 16:35 Dose: Infused Documented by: Labetalol HCl (Labetalol 5 Mg/Ml Ml) 0 mg IV Q2HP PRN PRN Reason: Hypertension Ondansetron HCl (Ondansetron 4 Mg/2 Ml Vial) 4 mg IV Q4HP PRN PRN Reason: Nausea And Vomiting Pantoprazole Sodium (Pantoprazole 40 Mg Tablet) 40 mg PO QAMAC [facility] Last Admin: 10/10/21 07:44 Dose: 40 mg Documented by: Polyethylene Glycol (Polyethylene Glycol 3350 17 Gm Packet) 17 gm PO DAILYP PRN PRN Reason: Constipation Potassium Chloride (Potassium Chloride 20 Meq Tablet) 40 meq PO UD PRN PRN Reason: Potssium is 3-3.5 Potassium Chloride (Potassium Chloride 20 Meq Tablet) 40 meq PO UD PRN PRN Reason: Potassium < 3 Senna (Sennosides 1 Tablet) 2 tab PO DAILYP PRN PRN Reason: Constipation Sodium Chloride (0.9 % Sodium Chloride 10 Ml Syringe) 10 ml IV Q8 KHALIF Last Admin: 10/10/21 05:36 Dose: 10 ml Documented by: A/P Narrative A/P Narrative: A: *Pneumonia versus aspiration pneumonitis: -strep Ur neg, rvp neg *Acute hypoxic respiratory failure: -on 1L NC *COPD (on 2L@night): *CAD/CVD: on asa/statin *CKD III: *Anemia, chronic *Polymyalgia rheumatica: On prednisone *Hand achiness: suspect rheumatological *HTN/HLD: *GERD: *Hypothyroidism: P: -Rocephin/azithromycin, pending BC/SC -Supplemental O2 wean, -IS/Acapella, prn nebs -f/u CXR -ST eval -trial higher dose of prednisone -cont home asa/statin/imdur -cont home norvasc/coreg/ARB, hold hctz for now -PT/OT -ppx: Lovenox/home PPI DNR Time Spent With Patient Time: Total time spent is greater than 50% in coordination of care (as documented) at patient's floor/unit and/or counseling patient: QUALITY VTE Deep Vein Thrombosis/Pulmonary Embolism Present on Admission: No
[2021-10-10] MEDS: ENOXAPARIN 40 MG/0.4 ML SYRINGE SQ SCH (08:54)
[2021-10-10] MEDS: ASPIRIN 81 MG TAB.CHEW PO SCH (08:54)
[2021-10-10] MEDS: amLODIPine 5 MG TABLET PO SCH (08:55)
[2021-10-10] MEDS: ISOSORBIDE MONONITRATE 60 MG TAB.XL.24H PO SCH (08:55)
[2021-10-10] MEDS: LOSARTAN 50 MG TABLET PO SCH ×2 (08:55→20:50)
[2021-10-10] MEDS: SODIUM BICARBONATE 650 MG TABLET PO SCH ×2 (08:55→20:50)
[2021-10-10] MEDS: MAGNESIUM OXIDE 400 MG TABLET PO SCH (08:55)
[2021-10-10] MEDS: DOCUSATE SODIUM 100 MG CAPSULE PO SCH ×2 (08:55→20:51)
[2021-10-10] MEDS ORDERED: methylPREDNISolone SOD SUCC 40 MG/ML VIAL IV ONE (08:57)
[2021-10-10] MEDS ORDERED: PANTOPRAZOLE 40 MG TABLET PO SCH (09:00)
[2021-10-10] MEDS ORDERED: MAGNESIUM SULFATE 2 GM/50 ML BAG IV ONE (09:00)
[2021-10-10] MEDS: cefTRIAXone 2 GM in DEXTROSE 5% IN WATER 50 ML IV SCH (09:11)
[2021-10-10] MEDS: LEVOTHYROXINE 25 MCG TABLET PO SCH (09:12)
[2021-10-10] MEDS: CARVEDILOL 12.5 MG TABLET PO SCH ×2 (09:12→16:57)
[2021-10-10] MEDS: AZITHROMYCIN 500 MG in DEXTROSE 5% IN WATER 250 ML IV SCH (09:48)
[2021-10-10] MEDS ORDERED: FLU VACC QS2021-22(6MOS UP)/PF 60 MCG/0.5 ML SYRINGE IM ONE (10:00)
--- NOTE | 2021-10-10 11:04 | XRay Report ---
CLINICAL INFORMATION: Follow-up infiltrate COMPARISON: 10/09/2021 TECHNIQUE: Portable FINDINGS: The heart is mildly enlarged but unchanged. Mediastinum and pulmonary vasculature are normal. Moderate solid infiltrate in the left base has worsened. Moderate more vague right basilar infiltrate has worsened. Small lateral pleural effusions noted.. IMPRESSION: Moderate consolidated infiltrate left base and moderate more vague infiltrate right base worsening considerably since yesterday. Consider infection or aspiration Interpreted and Authenticated by: Murphy Temple 10/10/21
[2021-10-10] MEDS: HYDROcodone/APAP 5/325MG TABLET PO PRN ×2 (11:53→21:16)
[2021-10-10] MEDS: ATORVASTATIN 40 MG TABLET PO SCH (20:50)
[2021-10-10] MEDS: MELATONIN 3 MG TABLET PO SCH (20:50)
[2021-10-10] MEDS ORDERED: diphenhydrAMINE 25 MG CAPSULE PO PRN (21:00)
[2021-10-11] MEDS: 0.9 % SODIUM CHLORIDE 10 ML SYRINGE IV SCH ×3 (05:14→21:53)
[2021-10-11 07:11] LABS: Basophils # (Auto) 0 K/mcL (0.00-0.30); Basophils % (Auto) 0 % (0.0-2.0); Eosinophils # (Auto) 0 K/mcL (0.00-0.70); Eosinophils % (Auto) 0 % (0.0-7.0); Hematocrit 24.8 % (40.1-51.0); Hemoglobin 7.6 g/dL (13.7-17.5); Lymphocytes # (Auto) 0.45 K/mcL (1.50-4.80); Lymphocytes % (Auto) 11.5 % (15.5-49.0); Mean Cell Volume 90.8 fL (80.0-100.0); Mean Corpuscular HGB Conc 30.6 g/dL (31.0-36.0); Mean Platelet Volume 10.7 fL (7.4-10.4); Monocytes % (Auto) 5.1 % (1.0-12.0); Neutrophils % (Auto) 83.4 % (38.0-78.0); Platelet Count 171 K/mcL (140-440); RBC 2.73 M/mcL (4.63-6.08); Red Cell Distribution Width 13.7 % (11.5-14.5); WBC 3.9 K/mcL (4.5-11.0)
[2021-10-11] MEDS: predniSONE 20 MG TABLET PO SCH (07:11)
[2021-10-11] MEDS: PANTOPRAZOLE 40 MG TABLET PO SCH (07:11)
[2021-10-11] MEDS: CARVEDILOL 12.5 MG TABLET PO SCH ×2 (07:12→16:49)
[2021-10-11] MEDS: LEVOTHYROXINE 25 MCG TABLET PO SCH (07:12)
[2021-10-11 07:52] LABS: ALT/SGPT 28 U/L (<40); AST/SGOT 46 U/L (<40); Albumin 2.7 gm/dL (3.2-5.2); Albumin/Globulin Ratio 0.8 (1.0-2.3); Alkaline Phosphatase 73 U/L (39-117); Bilirubin,Direct < 0.2 mg/dL (0-0.3); Bilirubin,Total 0.3 mg/dL (0.1-1.0); Blood Urea Nitrogen 29 mg/dL (8-23); Calcium 8.1 mg/dL (8.6-10.4); Carbon Dioxide 22 mmol/L (22-30); Chloride 98 mmol/L (96-108); Globulin 3.4 gm/dL (2.2-3.7); Glomerular Filtration Rate 38; Glucose 187 mg/dL (70-105); Lactate Dehydrogenase 207 U/L (135-225); Phosphorous 4.1 mg/dL (2.5-4.5); Triglycerides 69 mg/dL (<150)
[2021-10-11] MEDS: SODIUM BICARBONATE 650 MG TABLET PO SCH ×2 (08:34→21:52)
[2021-10-11] MEDS: ASPIRIN 81 MG TAB.CHEW PO SCH (08:34)
[2021-10-11] MEDS: LOSARTAN 50 MG TABLET PO SCH ×2 (08:34→21:52)
[2021-10-11] MEDS: ENOXAPARIN 40 MG/0.4 ML SYRINGE SQ SCH (08:34)
[2021-10-11] MEDS: cefTRIAXone 2 GM in DEXTROSE 5% IN WATER 50 ML IV SCH (08:34)
[2021-10-11] MEDS: amLODIPine 5 MG TABLET PO SCH (08:34)
[2021-10-11] MEDS: MAGNESIUM OXIDE 400 MG TABLET PO SCH (08:35)
[2021-10-11] MEDS: ISOSORBIDE MONONITRATE 60 MG TAB.XL.24H PO SCH (08:35)
[2021-10-11] MEDS: DOCUSATE SODIUM 100 MG CAPSULE PO SCH ×2 (08:35→21:51)
[2021-10-11] MEDS: AZITHROMYCIN 500 MG in DEXTROSE 5% IN WATER 250 ML IV SCH (09:29)
[2021-10-11] MEDS: IPRATROPIUM/ALBUTEROL 3 ML AMPUL.NEB NEB PRN (09:48)
--- NOTE | 2021-10-11 10:54 | Internal Med Progress Note ---
SUBJECTIVE Subjective Patient information: Note initiated : 10/11/21 at 10:49 am Service Date, if different from initiated Date: [] Patient: Kike Ramirez a 81 y/o M admitted on 10/09/21 for Pain throughout body. Chief Complaint: [] Interval history: History of present illness: Mr. Ramirez is a 81 year old M Presents to ED with body aches as well as shortness of breath. He has been using his oxygen during the day over the past week typically only uses at night. Has a history of COPD. Also has a history of polymyalgia rheumatica for which she is on prednisone. He complains of chills but denies fever. He said he does not have much of a cough. In the ED he had sats 84% but jumped up to 4 L and then brought back down to 2 L. Afebrile. Chest x-ray with new small right basilar infiltrate small left basal infiltrate. When asked about aspiration he says occasionally food or drink feels like he goes down the wrong pipe. 10/10 Patient states he slept poorly. Says he has achy hands and feels are little swollen. Denies coughing. Does not clinically feel short of breath at rest. 10/11, patient seen in room. No overnight events. Pain much improved after increasing dose of prednisone suspected PMR flare. Overnight on 4 L currently on room air trial doing well. Denies shortness of breath fever, chills, pleuritic chest pain. Resting comfortably. Still feels very weak and unable to participate in physical therapy or walk. Case management to coordinate SNF transfer. Continuing azithromycin/Rocephin/prednisone 40 Constitutional Vitals: Vital Signs Temp Pulse Resp BP Pulse Ox 97.1 F 65 18 124/63 94 10/11/21 07:08 10/11/21 09:49 10/11/21 09:49 10/11/21 07:08 10/11/21 09:49 Period Temp Pulse Resp BP Sys/Bustamante Pulse Ox Last 24 Hr 97.1 F-98.0 F 60-75 16-18 119-136/54-63 93-100 Intake and Output 10/10/21 10/11/21 10/11/21 21:59 05:59 13:59 Intake Total 200 310 Output Total 150 Balance 200 160 Weight 67.086 kg Alert oriented fatigue weakness improved since previous day Nonlabored breathing currently on trial of room air No anxiety Intake & Output: Intake & Output 10/10/21 10/11/21 10/11/21 21:59 05:59 13:59 Intake Total 200 310 Output Total 150 Balance 200 160 Weight 67.086 kg Intake: IV 310 Zithromax 500 mg In Dextrose 5% 260 in Water 250 ml @ 250 mls/hr IV Q24H [facility] Rx#:[id number] Rocephin 2 gm In Dextrose 5% in 50 Water 50 ml @ 100 mls/hr IV Q24H [facility] Rx#:[id number] Oral 200 Output: Void Amount 150 Other: Meal Dinner Percent of Meal Consumed 100% Stool Size Small # Voids 1 OBJ DATA Labs CBC & Chem 7: 10/11/21 05:47 10/11/21 05:47 Labs: Abnormal Lab Results 10/11/21 10/11/21 10/10/21 05:47 05:47 05:41 WBC 3.9 L RBC 2.73 L Hgb 7.6 L Hct 24.8 L POC Hct MCHC 30.6 L MPV 10.7 H Neut % (Auto) 83.4 H Lymph % (Auto) 11.5 L Nance % (Auto) Lymph # (Auto) 0.45 L Nance # (Auto) Monocytes % (Manual) RBC Morphology Hypochromasia Carbon Dioxide 20 L POC BUN BUN 29 H Creatinine 1.7 H 1.3 H POC Creatinine Glucose 187 H 60 L Uric Acid 9.0 H 8.1 H Calcium 8.1 L 8.5 L Magnesium 1.5 L Direct Bilirubin 0.3 H AST 46 H C-Reactive Protein 25.80 H Total Protein 5.7 L Albumin 2.7 L 2.7 L Albumin/Globulin Ratio 0.8 L 0.9 L Procalcitonin 10/10/21 10/10/21 10/09/21 05:41 05:41 07:59 WBC RBC 2.88 L Hgb 8.2 L Hct 26.1 L POC Hct 27 L MCHC MPV Neut % (Auto) Lymph % (Auto) Nance % (Auto) Lymph # (Auto) Nance # (Auto) Monocytes % (Manual) 14 H RBC Morphology Abnormal A Hypochromasia 1+ A Carbon Dioxide POC BUN 24 H BUN Creatinine POC Creatinine 1.3 H Glucose Uric Acid Calcium Magnesium Direct Bilirubin AST C-Reactive Protein 20.40 H Total Protein Albumin Albumin/Globulin Ratio Procalcitonin 10/09/21 10/09/21 10/09/21 07:59 07:50 07:50 WBC RBC 3.04 L Hgb 8.7 L Hct 27.5 L POC Hct MCHC MPV Neut % (Auto) Lymph % (Auto) Nance % (Auto) 19.5 H Lymph # (Auto) 1.26 L Nance # (Auto) 1.05 H Monocytes % (Manual) RBC Morphology Hypochromasia Carbon Dioxide POC BUN BUN Creatinine POC Creatinine Glucose Uric Acid Calcium Magnesium Direct Bilirubin AST C-Reactive Protein 10.20 H Total Protein Albumin Albumin/Globulin Ratio Procalcitonin 0.19 H Meds: Medications Acetaminophen (Acetaminophen 325 Mg Tablet) 650 mg PO Q6HP PRN; Protocol PRN Reason: Per Pain Protocol/Fever > 101 Last Admin: 10/10/21 08:54 Dose: 650 mg Documented by: Hydrocodone Bitart/Acetaminophen (Hydrocodone/Apap 5/325mg Tablet) 1 tab PO Q6HP PRN; Protocol PRN Reason: Per Pain Protocol Last Admin: 10/10/21 21:16 Dose: 1 tab Documented by: Albuterol/Ipratropium (Ipratropium/Albuterol 3 Ml Ampul.Neb) 3 ml NEB Q4HP PRN PRN Reason: Shortness Of Breath Last Admin: 10/11/21 09:48 Dose: 3 ml Documented by: Amlodipine Besylate (Amlodipine 5 Mg Tablet) 10 mg PO QDAY [facility] Last Admin: 10/11/21 08:34 Dose: 10 mg Documented by: Aspirin (Aspirin 81 Mg Tab.Chew) 81 mg PO DAILY [facility] Last Admin: 10/11/21 08:34 Dose: 81 mg Documented by: Atorvastatin Calcium (Atorvastatin 40 Mg Tablet) 40 mg PO QHS [facility] Last Admin: 10/10/21 20:50 Dose: 40 mg Documented by: Carvedilol (Carvedilol 12.5 Mg Tablet) 25 mg PO BIDCC [facility] Last Admin: 10/11/21 07:12 Dose: 25 mg Documented by: Diphenhydramine HCl (Diphenhydramine 25 Mg Capsule) 25 mg PO HSP PRN PRN Reason: Insomnia Docusate Sodium (Docusate Sodium 100 Mg Capsule) 100 mg PO BID [facility] Last Admin: 10/11/21 08:35 Dose: 100 mg Documented by: Enoxaparin Sodium (Enoxaparin 40 Mg/0.4 Ml Syringe) 40 mg SQ DAILY [facility] Last Admin: 10/11/21 08:34 Dose: 40 mg Documented by: Potassium Chloride 40 meq/ (Dextrose) 520 mls @ 130 mls/hr IV UD PRN PRN Reason: Potassium < 3 Magnesium Sulfate (Magnesium Sulfate) 2 gm in 50 mls @ 50 mls/hr IV UD PRN PRN Reason: Magnesium </= 1.6 Ceftriaxone Sodium 2 gm/ (Dextrose) 50 mls @ 100 mls/hr IV Q24H [facility]; Protocol Last Infusion: 10/11/21 09:05 Dose: Infused Documented by: Azithromycin 500 mg/ Dextrose 250 mls @ 250 mls/hr IV Q24H [facility]; Protocol Stop: 10/11/21 15:59 Last Infusion: 10/11/21 10:39 Dose: Infused Documented by: Isosorbide Mononitrate (Isosorbide Mononitrate 60 Mg Tab.Xl.24h) 60 mg PO QDAY [facility] Last Admin: 10/11/21 08:35 Dose: 60 mg Documented by: Labetalol HCl (Labetalol 5 Mg/Ml Ml) 0 mg IV Q2HP PRN PRN Reason: Hypertension Levothyroxine Sodium (Levothyroxine 25 Mcg Tablet) 25 mcg PO ACB [facility] Last Admin: 10/11/21 07:12 Dose: 25 mcg Documented by: Losartan Potassium (Losartan 50 Mg Tablet) 50 mg PO BID [facility] Last Admin: 10/11/21 08:34 Dose: 50 mg Documented by: Magnesium Oxide (Magnesium Oxide 400 Mg Tablet) 400 mg PO DAILY [facility] Last Admin: 10/11/21 08:35 Dose: 400 mg Documented by: Melatonin (Melatonin 3 Mg Tablet) 3 mg PO QHS [facility] Last Admin: 10/10/21 20:50 Dose: 3 mg Documented by: Ondansetron HCl (Ondansetron 4 Mg/2 Ml Vial) 4 mg IV Q4HP PRN PRN Reason: Nausea And Vomiting Pantoprazole Sodium (Pantoprazole 40 Mg Tablet) 40 mg PO QAMAC [facility] Last Admin: 10/11/21 07:11 Dose: 40 mg Documented by: Polyethylene Glycol (Polyethylene Glycol 3350 17 Gm Packet) 17 gm PO DAILYP PRN PRN Reason: Constipation Potassium Chloride (Potassium Chloride 20 Meq Tablet) 40 meq PO UD PRN PRN Reason: Potssium is 3-3.5 Potassium Chloride (Potassium Chloride 20 Meq Tablet) 40 meq PO UD PRN PRN Reason: Potassium < 3 Prednisone (Prednisone 20 Mg Tablet) 40 mg PO QAMCC [facility] Last Admin: 10/11/21 07:11 Dose: 40 mg Documented by: Senna (Sennosides 1 Tablet) 2 tab PO DAILYP PRN PRN Reason: Constipation Sodium Bicarbonate (Sodium Bicarbonate 650 Mg Tablet) 650 mg PO BID [facility] Last Admin: 10/11/21 08:34 Dose: 650 mg Documented by: Sodium Chloride (0.9 % Sodium Chloride 10 Ml Syringe) 10 ml IV Q8 [facility] Last Admin: 10/11/21 05:14 Dose: 10 ml Documented by: A/P Narrative A/P Narrative: * Pneumonia community-acquired versus aspiration pneumonitis: Clinically responding to antibiotic coverage * Acute hypoxic respiratory failure: Continue to wean oxygen currently on trial of room air * COPD (on 2L@night): * CAD/CVD: on asa/statin * CKD III: Stable * Anemia, chronic hemoglobin 7.6, 2 units PRBC * Polymyalgia rheumatica: Suspected flare. Responding to prednisone 40. Continue for additional 24 h and wean * HTN/HLD: On home dose losartan statin, isosorbide * GERD: PPI * Hypothyroidism: * Prophylaxis on Lovenox Plan * Continue antibiotic coverage * Prednisone 40 for 24 h * Units PRBC transfusion * Pre-existing medical condition management home medication * ST eval/dietary recommendations/aspiration precautions Time Spent With Patient Time: Total time spent is greater than 50% in coordination of care (as documented) at patient's floor/unit and/or counseling patient: Total time spent with greater than 50% in coordination of care (as documented) at patient's floor/unit and/or counseling patient:: Greater than 35 minutes QUALITY VTE Deep Vein Thrombosis/Pulmonary Embolism Present on Admission: No
[2021-10-11] MEDS ORDERED: 0.9 % SODIUM CHLORIDE 250 ML IV SCH (11:00)
--- NOTE | 2021-10-11 17:56 | Ultrasound Report ---
CLINICAL INFORMATION: Acute renal failure COMPARISON: Abdominal ultrasound 11/19/2019. Abdomen and pelvic CT 07/27/2018 FINDINGS: Both kidneys are normal in size, position, configuration and echotexture: The right is 10.7 x 5 cm and the left 12.1 x 5 cm. Bilateral renal cysts are unchanged from the CT over three years ago: 07/27/2018. The largest cyst in the right kidney is 6.5 cm inferior pole. Largest cyst in the left kidney is 10.9 cm in the superior pole. No evidence of stones or hydronephrosis. No solid lesions. Arterial blood flow is grossly normal two both kidneys on color Doppler. Urinary bladder volume 133 cc the patient unable to void. No bladder lesions. Prostate volume is normal 20 cc IMPRESSION: Bilateral renal cysts-stable since CT over three years prior. Both kidneys are, otherwise, normal Urinary bladder and prostate are unremarkable. Patient was unable to void. Interpreted and Authenticated by: Murphy Temple 10/11/21
[2021-10-11] MEDS: ATORVASTATIN 40 MG TABLET PO SCH (21:51)
[2021-10-11] MEDS: HYDROcodone/APAP 5/325MG TABLET PO PRN (21:52)
[2021-10-11] MEDS: MELATONIN 3 MG TABLET PO SCH (21:52)
[2021-10-12] MEDS: 0.9 % SODIUM CHLORIDE 10 ML SYRINGE IV SCH ×3 (05:34→20:59)
[2021-10-12] MEDS: IPRATROPIUM/ALBUTEROL 3 ML AMPUL.NEB NEB PRN (08:20)
[2021-10-12] MEDS: CARVEDILOL 12.5 MG TABLET PO SCH ×2 (08:39→17:54)
[2021-10-12] MEDS: ENOXAPARIN 40 MG/0.4 ML SYRINGE SQ SCH (08:39)
[2021-10-12] MEDS: predniSONE 20 MG TABLET PO SCH (08:39)
[2021-10-12] MEDS ORDERED: cefTRIAXone 2 GM VIAL ONE (08:39)
[2021-10-12] MEDS: SODIUM BICARBONATE 650 MG TABLET PO SCH ×2 (08:40→20:59)
[2021-10-12] MEDS: MAGNESIUM OXIDE 400 MG TABLET PO SCH (08:40)
[2021-10-12] MEDS: DOCUSATE SODIUM 100 MG CAPSULE PO SCH ×2 (08:40→20:58)
[2021-10-12] MEDS: ISOSORBIDE MONONITRATE 60 MG TAB.XL.24H PO SCH (08:40)
[2021-10-12] MEDS: PANTOPRAZOLE 40 MG TABLET PO SCH (08:40)
[2021-10-12] MEDS: LEVOTHYROXINE 25 MCG TABLET PO SCH (08:40)
[2021-10-12] MEDS: amLODIPine 5 MG TABLET PO SCH (08:40)
[2021-10-12] MEDS: LOSARTAN 50 MG TABLET PO SCH ×2 (08:40→20:58)
[2021-10-12] MEDS: ASPIRIN 81 MG TAB.CHEW PO SCH (08:41)
[2021-10-12] MEDS: cefTRIAXone 2 GM in DEXTROSE 5% IN WATER 50 ML IV SCH (08:45)
[2021-10-12] MEDS ORDERED: MAGNESIUM CITRATE 300 ML ORAL.SOL PO ONE (12:24)
--- NOTE | 2021-10-12 12:29 | Internal Med Progress Note ---
SUBJECTIVE Subjective Patient information: Note initiated : 10/12/21 at 12:26 pm Service Date, if different from initiated Date: [] Patient: Kike Ramirez a 81 y/o M admitted on 10/09/21 for Pain throughout body. Chief Complaint: [] Interval history: History of present illness: Mr. Ramirez is a 81 year old M Presents to ED with body aches as well as shortness of breath. He has been using his oxygen during the day over the past week typically only uses at night. Has a history of COPD. Also has a history of polymyalgia rheumatica for which she is on prednisone. He complains of chills but denies fever. He said he does not have much of a cough. In the ED he had sats 84% but jumped up to 4 L and then brought back down to 2 L. Afebrile. Chest x-ray with new small right basilar infiltrate small left basal infiltrate. When asked about aspiration he says occasionally food or drink feels like he goes down the wrong pipe. 10/10 Patient states he slept poorly. Says he has achy hands and feels are little swollen. Denies coughing. Does not clinically feel short of breath at rest. 10/11, patient seen in room. No overnight events. Pain much improved after increasing dose of prednisone suspected PMR flare. Overnight on 4 L currently on room air trial doing well. Denies shortness of breath fever, chills, pleuritic chest pain. Resting comfortably. Still feels very weak and unable to participate in physical therapy or walk. Case management to coordinate SNF transfer. Continuing azithromycin/Rocephin/prednisone 40 10/12-patient doing well. Complains of constipation. Currently on 1 L oxygen. Continue antibiotic coverage. Much improved generalized body aches, taper prednisone to 20 mg daily Likely discharge in 44 hours. 5 ounces mag citrate. Continue PT OT nutrition support. Case management coordinate discharge planning possibly SNF. Constitutional Vitals: Vital Signs Temp Pulse Resp BP Pulse Ox 98.2 F 74 18 142/69 96 10/12/21 09:51 10/12/21 09:51 10/12/21 09:51 10/12/21 09:51 10/12/21 09:51 Period Temp Pulse Resp BP Sys/Bustamante Pulse Ox Last 24 Hr 97.5 F-98.4 F 65-79 16-20 125-142/50-70 96-98 Intake and Output 10/11/21 10/12/21 10/12/21 21:59 05:59 13:59 Intake Total 700 300 890 Output Total 400 Balance 700 -100 890 Weight 68.096 kg Alert oriented Nonlabored breathing On monitor oxygen No lymphedema Minimal anxiety Intake & Output: Intake & Output 10/11/21 10/12/21 10/12/21 21:59 05:59 13:59 Intake Total 700 300 890 Output Total 400 Balance 700 -100 890 Weight 68.096 kg Intake: Oral 700 300 240 Blood Product 650 Output: Void Amount 400 Other: Meal Dinner Breakfast Percent of Meal Consumed 75% 100% Feeding Ability Independent Assist with Tray Set Up Urine Appearance Clear Urine Color Dark Yellow OBJ DATA Labs CBC & Chem 7: 10/11/21 05:47 10/11/21 05:47 Labs: Abnormal Lab Results 10/11/21 10/11/21 10/10/21 05:47 05:47 05:41 WBC 3.9 L RBC 2.73 L Hgb 7.6 L Hct 24.8 L MCHC 30.6 L MPV 10.7 H Neut % (Auto) 83.4 H Lymph % (Auto) 11.5 L Lymph # (Auto) 0.45 L Monocytes % (Manual) RBC Morphology Hypochromasia Carbon Dioxide 20 L BUN 29 H Creatinine 1.7 H 1.3 H Glucose 187 H 60 L Uric Acid 9.0 H 8.1 H Calcium 8.1 L 8.5 L Magnesium 1.5 L Direct Bilirubin 0.3 H AST 46 H C-Reactive Protein 25.80 H Total Protein 5.7 L Albumin 2.7 L 2.7 L Albumin/Globulin Ratio 0.8 L 0.9 L Procalcitonin 10/10/21 10/10/21 10/09/21 05:41 05:41 07:50 WBC RBC 2.88 L Hgb 8.2 L Hct 26.1 L MCHC MPV Neut % (Auto) Lymph % (Auto) Lymph # (Auto) Monocytes % (Manual) 14 H RBC Morphology Abnormal A Hypochromasia 1+ A Carbon Dioxide BUN Creatinine Glucose Uric Acid Calcium Magnesium Direct Bilirubin AST C-Reactive Protein 20.40 H Total Protein Albumin Albumin/Globulin Ratio Procalcitonin 0.19 H 10/09/21 07:50 WBC RBC Hgb Hct MCHC MPV Neut % (Auto) Lymph % (Auto) Lymph # (Auto) Monocytes % (Manual) RBC Morphology Hypochromasia Carbon Dioxide BUN Creatinine Glucose Uric Acid Calcium Magnesium Direct Bilirubin AST C-Reactive Protein 10.20 H Total Protein Albumin Albumin/Globulin Ratio Procalcitonin Meds: Medications Acetaminophen (Acetaminophen 325 Mg Tablet) 650 mg PO Q6HP PRN; Protocol PRN Reason: Per Pain Protocol/Fever > 101 Last Admin: 10/10/21 08:54 Dose: 650 mg Documented by: Hydrocodone Bitart/Acetaminophen (Hydrocodone/Apap 5/325mg Tablet) 1 tab PO Q6HP PRN; Protocol PRN Reason: Per Pain Protocol Last Admin: 10/11/21 21:52 Dose: 1 tab Documented by: Albuterol/Ipratropium (Ipratropium/Albuterol 3 Ml Ampul.Neb) 3 ml NEB Q4HP PRN PRN Reason: Shortness Of Breath Last Admin: 10/12/21 08:20 Dose: 3 ml Documented by: Amlodipine Besylate (Amlodipine 5 Mg Tablet) 10 mg PO QDAY [facility] Last Admin: 10/12/21 08:40 Dose: 10 mg Documented by: Aspirin (Aspirin 81 Mg Tab.Chew) 81 mg PO DAILY [facility] Last Admin: 10/12/21 08:41 Dose: 81 mg Documented by: Atorvastatin Calcium (Atorvastatin 40 Mg Tablet) 40 mg PO QHS [facility] Last Admin: 10/11/21 21:51 Dose: 40 mg Documented by: Carvedilol ([facility] 12.5 Mg [facility]t) [facility] Last Admin: 10/12/21 08:39 Dose: 25 mg Documented by: Diphenhydramine HCl (Diphenhydramine 25 Mg Capsule) 25 mg PO HSP PRN PRN Reason: Insomnia Docusate Sodium (Docusate Sodium 100 Mg Capsule) 100 mg PO BID [facility] Last Admin: 10/12/21 08:40 Dose: 100 mg Documented by: Enoxaparin Sodium (Enoxaparin 40 Mg/0.4 Ml Syringe) 40 mg SQ DAILY [facility] Last Admin: 10/12/21 08:39 Dose: 40 mg Documented by: Potassium Chloride 40 meq/ (Dextrose) 520 mls @ 130 mls/hr IV UD PRN PRN Reason: Potassium < 3 Magnesium Sulfate (Magnesium Sulfate) 2 gm in 50 mls @ 50 mls/hr IV UD PRN PRN Reason: Magnesium </= 1.6 Ceftriaxone Sodium 2 gm/ (Dextrose) 50 mls @ 100 mls/hr IV Q24H [facility]; Protocol Last Admin: 10/12/21 08:45 Dose: Not Given Documented by: Isosorbide Mononitrate (Isosorbide Mononitrate 60 Mg Tab.Xl.24h) 60 mg PO QDAY [facility] Last Admin: 10/12/21 08:40 Dose: 60 mg Documented by: Labetalol HCl (Labetalol 5 Mg/Ml Ml) 0 mg IV Q2HP PRN PRN Reason: Hypertension Levothyroxine Sodium (Levothyroxine 25 Mcg Tablet) 25 mcg PO ACB [facility] Last Admin: 10/12/21 08:40 Dose: 25 mcg Documented by: Losartan Potassium (Losartan 50 Mg Tablet) 50 mg PO BID [facility] Last Admin: 10/12/21 08:40 Dose: 50 mg Documented by: Magnesium Citrate (Magnesium Citrate 300 Ml Oral.Angelita) 150 ml PO ONCE ONE Stop: 10/12/21 12:25 Magnesium Oxide (Magnesium Oxide 400 Mg Tablet) 400 mg PO DAILY [facility] Last Admin: 10/12/21 08:40 Dose: 400 mg Documented by: Melatonin (Melatonin 3 Mg Tablet) 3 mg PO QHS [facility] Last Admin: 10/11/21 21:52 Dose: 3 mg Documented by: Ondansetron HCl (Ondansetron 4 Mg/2 Ml Vial) 4 mg IV Q4HP PRN PRN Reason: Nausea And Vomiting Pantoprazole Sodium (Pantoprazole 40 Mg Tablet) 40 mg PO QAMAC [facility] Last Admin: 10/12/21 08:40 Dose: 40 mg Documented by: Polyethylene Glycol (Polyethylene Glycol 3350 17 Gm Packet) 17 gm PO DAILYP PRN PRN Reason: Constipation Potassium Chloride (Potassium Chloride 20 Meq Tablet) 40 meq PO UD PRN PRN Reason: Potssium is 3-3.5 Potassium Chloride (Potassium Chloride 20 Meq Tablet) 40 meq PO UD PRN PRN Reason: Potassium < 3 Prednisone (Prednisone 20 Mg Tablet) [facility] Senna (Sennosides 1 Tablet) 2 tab PO DAILYP PRN PRN Reason: Constipation Sodium Bicarbonate (Sodium Bicarbonate 650 Mg Tablet) 650 mg PO BID [facility] Last Admin: 10/12/21 08:40 Dose: 650 mg Documented by: Sodium Chloride (0.9 % Sodium Chloride 10 Ml Syringe) 10 ml IV Q8 [facility] Last Admin: 10/12/21 05:34 Dose: 10 ml Documented by: A/P Narrative A/P Narrative: * Pneumonia community-acquired versus aspiration pneumonitis: Clinically res ponding to antibiotic coverage. * Acute hypoxic respiratory failure: Now on baseline oxygen. * COPD (on 2L@night): At baseline, continue bronchodilators * CAD/CVD: on asa/statin * Constipation -5 ounces magnesium citrate * CKD III: Stable, negative renal ultrasound. Creatinine 1.7 * Anemia, chronic hemoglobin 7.6, 2 units PRBC * Polymyalgia rheumatica: Suspected flare. Responding to prednisone 40. Continue for additional 24 h and wean * HTN/HLD: On home dose losartan statin, isosorbide * GERD: PPI * Hypothyroidism: * Prophylaxis on Lovenox Plan * Continue antibiotic coverage * Prednisone 20 mg followed by 10 mg on discharge * SNF transfer coordination per case management * Pre-existing medical condition management home medication * ST eval/dietary recommendations/aspiration precautions * 5 hours mag citrate Time Spent With Patient Time: Total time spent is greater than 50% in coordination of care (as documented) at patient's floor/unit and/or counseling patient: QUALITY VTE Deep Vein Thrombosis/Pulmonary Embolism Present on Admission: No
[2021-10-12 13:19] LABS: Basophils # (Auto) 0 K/mcL (0.00-0.30); Basophils % (Auto) 0 % (0.0-2.0); Eosinophils # (Auto) 0 K/mcL (0.00-0.70); Eosinophils % (Auto) 0 % (0.0-7.0); Hematocrit 28.2 % (40.1-51.0); Hemoglobin 9.3 g/dL (13.7-17.5); Lymphocytes # (Auto) 0.39 K/mcL (1.50-4.80); Lymphocytes % (Auto) 6.9 % (15.5-49.0); Mean Cell Volume 87.3 fL (80.0-100.0); Mean Platelet Volume 10.6 fL (7.4-10.4); Monocytes # (Auto) 0.31 K/mcL (0.10-0.90); Monocytes % (Auto) 5.5 % (1.0-12.0); Neutrophils % (Auto) 87.6 % (38.0-78.0); Platelet Count 210 K/mcL (140-440); RBC 3.23 M/mcL (4.63-6.08); Red Cell Distribution Width 13.5 % (11.5-14.5); WBC 5.6 K/mcL (4.5-11.0)
[2021-10-12 13:34] LABS: ALT/SGPT 74 U/L (<40); AST/SGOT 114 U/L (<40); Albumin 3.1 gm/dL (3.2-5.2); Albumin/Globulin Ratio 0.9 (1.0-2.3); Alkaline Phosphatase 96 U/L (39-117); Bilirubin,Direct < 0.2 mg/dL (0-0.3); Bilirubin,Total 0.4 mg/dL (0.1-1.0); Blood Urea Nitrogen 43 mg/dL (8-23); Calcium 8.1 mg/dL (8.6-10.4); Carbon Dioxide 22 mmol/L (22-30); Chloride 98 mmol/L (96-108); Globulin 3.3 gm/dL (2.2-3.7); Glomerular Filtration Rate 35; Glucose 145 mg/dL (70-105); Lactate Dehydrogenase 252 U/L (135-225); Phosphorous 4.2 mg/dL (2.5-4.5); Triglycerides 112 mg/dL (<150); Uric Acid 9.8 mg/dL (2.5-8.0)
--- NOTE | 2021-10-12 14:26 | XRay Report ---
CLINICAL INFORMATION: There are infiltrates. Evaluate for aspiration. TECHNIQUE: Carbon dioxide crystals and 10 cc of water with simethacone drops were administered. High density/high viscosity barium was ingested under fluoroscopic observation while spot films were obtained of the esophagus during deglutition in both the upright and prone positions. Total fluoroscopy time: One minute and one second FINDINGS: Tongue elevation and palate depression are normal resulting in propulsion of the barium bolus into the pharynx. The nasopharyngeus closes normally. Pharyngeal stripping, cricopharyngeal opening, and initiation of the primary peristaltic wave are all are normal. The epiglottis and vocal cords close normally - no evidence of descending aspiration of thin and thick quality barium. A thin web is seen in the anterior cervical esophagus at the C5 level which did not impede barium bolus IMPRESSION: Normal swallowing function. 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
[2021-10-12] MEDS: MELATONIN 3 MG TABLET PO SCH (20:58)
[2021-10-12] MEDS: ATORVASTATIN 40 MG TABLET PO SCH (20:59)
[2021-10-12] MEDS: HYDROcodone/APAP 5/325MG TABLET PO PRN (21:03)
[2021-10-13] MEDS: LEVOTHYROXINE 25 MCG TABLET PO SCH (07:43)
[2021-10-13] MEDS: CARVEDILOL 12.5 MG TABLET PO SCH (07:43)
[2021-10-13] MEDS: PANTOPRAZOLE 40 MG TABLET PO SCH (07:44)
[2021-10-13] MEDS: 0.9 % SODIUM CHLORIDE 10 ML SYRINGE IV SCH (07:44)
[2021-10-13] MEDS ORDERED: predniSONE 20 MG TABLET PO SCH (08:00)
[2021-10-13] MEDS: IPRATROPIUM/ALBUTEROL 3 ML AMPUL.NEB NEB PRN (08:21)
[2021-10-13 08:32] LABS: Basophils # (Auto) 0 K/mcL (0.00-0.30); Basophils % (Auto) 0 % (0.0-2.0); Eosinophils # (Auto) 0 K/mcL (0.00-0.70); Eosinophils % (Auto) 0 % (0.0-7.0); Lymphocytes # (Auto) 0.51 K/mcL (1.50-4.80); Lymphocytes % (Auto) 12.1 % (15.5-49.0); Mean Cell Volume 87.1 fL (80.0-100.0); Mean Corpuscular HGB Conc 33.3 g/dL (31.0-36.0); Mean Platelet Volume 10.9 fL (7.4-10.4); Monocytes # (Auto) 0.27 K/mcL (0.10-0.90); Monocytes % (Auto) 6.4 % (1.0-12.0); Neutrophils % (Auto) 81.5 % (38.0-78.0); Platelet Count 215 K/mcL (140-440); Red Cell Distribution Width 13.8 % (11.5-14.5); WBC 4.2 K/mcL (4.5-11.0)
[2021-10-13 08:51] LABS: ALT/SGPT 74 U/L (<40); AST/SGOT 93 U/L (<40); Albumin 3.3 gm/dL (3.2-5.2); Albumin/Globulin Ratio 1.2 (1.0-2.3); Alkaline Phosphatase 88 U/L (39-117); Bilirubin,Direct < 0.2 mg/dL (0-0.3); Bilirubin,Total 0.5 mg/dL (0.1-1.0); Blood Urea Nitrogen 51 mg/dL (8-23); Carbon Dioxide 23 mmol/L (22-30); Chloride 98 mmol/L (96-108); Globulin 2.8 gm/dL (2.2-3.7); Glomerular Filtration Rate 35; Glucose 133 mg/dL (70-105); Lactate Dehydrogenase 246 U/L (135-225); Phosphorous 3.7 mg/dL (2.5-4.5); Triglycerides 87 mg/dL (<150); Uric Acid 10.6 mg/dL (2.5-8.0)
--- NOTE | 2021-10-13 08:52 | Discharge Summary ---
Discharge Provider Provider Patient information: Note initiated : 10/13/21 at 8:46 am Service Date, if different from initiated Date: [] Patient: Kike Ramirez 81 y/o M admitted on 10/09/21 for Pain throughout body. Chief Complaint: [] Date of admission: 10/09/21 14:23 Discharge date: 10/13/21 Primary care physician: Murphy Kyle DO Consults: 10/09/21 11:55 Consult to Physician [CONS] Stat Comment: Consulting Provider: Jarrod Musa Reason For Exam: Physician to Consult Discharge Meds Discharge Medications Home Medications aspirin 81 mg tablet,delayed release 81 mg PO QDAY 10/06/15 [History Confirmed 10/09/21 Last Taken 03/16/17] calcium 1000/magnesium 500 1 tab PO QDAY 02/05/19 [History Confirmed 10/09/21 Last Taken Unknown] cholecalciferol (vitamin D3) 125 mcg (5,000 unit) tablet 125 mcg PO QDAY 02/21/20 [History Confirmed 10/09/21 Last Taken Unknown] albuterol sulfate 2.5 mg (3 mL) INHALATION Q6H PRN #1080 ml 04/16/20 [Rx Confirmed 10/09/21 Last Taken Unknown] clobetasol 0.05 % topical ointment 1 applic TOPICAL BID #60 g 11/04/20 [Rx Confirmed 10/09/21 Last Taken Unknown] folic acid 1 mg tablet 1 mg PO BID #180 tab 02/11/21 [Rx Confirmed 10/09/21 Last Taken Unknown] magnesium oxide 400 mg PO QDAY #90 cap 02/18/21 [Rx Confirmed 10/09/21 Last Taken Unknown] atorvastatin 40 mg tablet 40 mg PO QHS #90 tab 02/25/21 [Rx Confirmed 10/09/21 Last Taken Unknown] carvedilol 25 mg tablet 25 mg PO BID #180 tab 02/25/21 [Rx Confirmed 10/09/21 Last Taken Unknown] levothyroxine 25 mcg tablet 25 mcg PO QDAY #90 tab 02/25/21 [Rx Confirmed 10/09/21 Last Taken Unknown] pantoprazole 40 mg tablet,delayed release 40 mg PO QDAY #90 tab 02/25/21 [Rx Confirmed 10/09/21 Last Taken Unknown] sodium bicarbonate 650 mg tablet 650 mg PO BID #180 tab 05/06/21 [Rx Confirmed 10/09/21 Last Taken Unknown] amlodipine 5 mg tablet 10 mg PO QDAY tab 08/10/21 [History Confirmed 10/09/21 Last Taken Unknown] isosorbide mononitrate 60 mg tablet,extended release 24 hr 60 mg PO QDAY tab 08/10/21 [History Confirmed 10/09/21 Last Taken Unknown] losartan 50 mg tablet 50 mg PO BID tab 08/10/21 [History Confirmed 10/09/21 Last Taken Unknown] hydrochlorothiazide 25 mg tablet 25 mg PO QAM #90 tab 08/27/21 [Rx Confirmed 10/09/21 Last Taken Unknown] cefdinir 300 mg capsule 300 mg PO BID #8 cap 10/13/21 [Rx Last Taken Unknown] prednisone 10 mg tablet 10 mg PO QDAY #2 tab 10/13/21 [Rx Last Taken Unknown] prednisone 5 mg tablet 5 mg PO QDAY #30 tab 10/13/21 [Rx Last Taken Unknown] COURSE Hospital Course Hospital course: Discharge diagnosis * Pneumonia community-acquired -clinically improved on antibiotic coverage. Continue additional 4 days oral cefdinir * Acute hypoxic respiratory failure: Resolved now on baseline oxygen * COPD (on 2L@night): Stable on bronchodilators/home dose oxygen * CAD/CVD: on asa/statin * CKD III: Creatinine plateaued at 1.8, negative renal ultrasound. Hold losartan for 72 hours, recommend [facility] physician to repeat BMP in 3 days. Recommend follow-up with nephrology as outpatient * Anemia, chronic hemoglobin improved to 9.3 following transfusion * Polymyalgia rheumatica flare. Responded well to high-dose prednisone 40 followed by 20, continue 10 mg for 2 days followed by 5 mg at SNF * HTN/HLD: On home dose losartan statin, isosorbide/amlodipine * GERD: PPI * Hypothyroidism: Managed on home dose thyroxine Brief hospital course Mr. Ramirez is a 81 year old M Presents to ED with body aches as well as shortness of breath. He has been using his oxygen during the day over the past week typically only uses at night. Has a history of COPD. Also has a history of polymyalgia rheumatica for which she is on prednisone. He complains of chills but denies fever. He said he does not have much of a cough. In the ED he had sats 84% but jumped up to 4 L and then brought back down to 2 L. Afebrile. Chest x-ray with new small right basilar infiltrate small left basal infiltrate. When asked about aspiration he says occasionally food or drink feels like he goes down the wrong pipe. 10/10 Patient states he slept poorly. Says he has achy hands and feels are little swollen. Denies coughing. Does not clinically feel short of breath at rest. 10/11, patient seen in room. No overnight events. Pain much improved after increasing dose of prednisone suspected PMR flare. Overnight on 4 L currently on room air trial doing well. Denies shortness of breath fever, chills, pleuritic chest pain. Resting comfortably. Still feels very weak and unable to participate in physical therapy or walk. Case management to coordinate SNF transfer. Continuing azithromycin/Rocephin/prednisone 40 10/12-patient doing well. Complains of constipation. Currently on 1 L oxygen. Continue antibiotic coverage. Much improved generalized body aches, taper prednisone to 20 mg daily Likely discharge in 44 hours. 5 ounces mag citrate. Continue PT OT nutrition support. Case management coordinate discharge planning possibly SNF. 10/13-patient doing well. Discharging to SNF today for continued posthospitalization rehab. Continue prednisone 20 mg/day followed by 10 mg for 2 days followed by 5 mg to continue. Follow-up with PCP in 5 to 10 days. Continue additional 3 days oral antibiotic. Recheck BMP in 3 days, hold losartan due to elevated creatinine. Discharge diagnosis: Community-acquired pneumonia Time Spent with Patient Time attestation: Total time spent providing and/or coordinating discharge services: EXAM Constitutional Vitals: Temp Pulse Resp BP Pulse Ox 97.5 F 61 18 161/73 95 10/13/21 08:00 10/13/21 08:22 10/13/21 08:22 10/13/21 08:00 10/13/21 08:22 Discharge Data Data Completed and Pending Labs on day of discharge: Labs from last 24 hours 10/13/21 10/13/21 10/12/21 05:11 05:11 12:32 WBC 4.2 L RBC 3.10 L Hgb 9.0 L Hct 27.0 L MCV 87.1 MCH 29.0 MCHC 33.3 RDW 13.8 Plt Count 215 MPV 10.9 H Neut % (Auto) 81.5 H Lymph % (Auto) 12.1 L [place] % (Auto) 6.4 Eos % (Auto) 0 Baso % (Auto) 0 Lymph # (Auto) 0.51 L [place] # (Auto) 0.27 Eos # (Auto) 0 Baso # (Auto) 0 Absolute Neutrophils 3.42 Sodium Pending 137 Potassium Pending 3.8 Chloride Pending 98 Carbon Dioxide Pending 22 Anion Gap Pending 17.0 H BUN Pending 43 H Creatinine Pending 1.8 H GFR Calculation Pending 35 Glucose Pending 145 H Uric Acid Pending 9.8 H Calcium Pending 8.1 L Phosphorus Pending 4.2 Magnesium Pending 2.1 Total Bilirubin Pending 0.4 Direct Bilirubin Pending < 0.2 GGT Pending 59 AST Pending 114 H ALT Pending 74 H Alkaline Phosphatase Pending 96 Lactate Dehydrogenase Pending 252 H Total Protein Pending 6.4 Albumin Pending 3.1 L Globulin Pending 3.3 Albumin/Globulin Ratio Pending 0.9 L Triglycerides Pending 112 10/12/21 12:32 WBC 5.6 RBC 3.23 L Hgb 9.3 L Hct 28.2 L MCV 87.3 MCH 28.8 MCHC 33.0 RDW 13.5 Plt Count 210 MPV 10.6 H Neut % (Auto) 87.6 H Lymph % (Auto) 6.9 L [place] % (Auto) 5.5 Eos % (Auto) 0 Baso % (Auto) 0 Lymph # (Auto) 0.39 L [place] # (Auto) 0.31 Eos # (Auto) 0 Baso # (Auto) 0 Absolute Neutrophils 4.94 Sodium Potassium Chloride Carbon Dioxide Anion Gap BUN Creatinine GFR Calculation Glucose Uric Acid Calcium Phosphorus Magnesium Total Bilirubin Direct Bilirubin GGT AST ALT Alkaline Phosphatase Lactate Dehydrogenase Total Protein Albumin Globulin Albumin/Globulin Ratio Triglycerides Preliminary micro results at discharge 10/09/21 12:33 Blood Culture - Preliminary Blood 10/09/21 12:30 Blood Culture - Preliminary Blood Discharge Plan Patient/Caregiver Discharge Instructions Activity: increase activity as tolerated Diet: Renal Instructions: Prednisone (By mouth), Cefdinir (By mouth), Community Acquired Pneumonia (DC), Hypoxia (GEN) Activity Restrictions/Additional Instructions: Resume Renal diet. Take all meals up in chair, sitting at 90 degrees, to prevent aspiration. Increase activity as tolerated. Continue fall precautions. Continue PT/OT. Take all medication as directed. Continue to hold losartan until creatinine less than 1.6. Continue oral cefdinir for additional 4 days. Prednisone 10 mg for 2 days followed by 5 mg to continue (dose was increased due to PMR flare). Hospitalist recommends follow-up with nephrology as outpatient, please set up appointment. Dietitian consult as well. Repeat BMP in 3 days for interval follow-up renal function. Return to ER for fever, chills, uncontrolled pain, inability to urinate or have a bowel movement, nausea and/or vomiting, swelling, redness, signs of infection, increased shortness of breath, chest pain, return of symptoms, or other acute symptom. This discharge packet is provided to you to help keep you informed about your care. We want to ensure you get everything you need when you go home. You will also be receiving a call from us in a few days to follow up with you and see how you are doing since your discharge. This gives us a chance to listen to any concerns you maybe experiencing since you were discharged or any additional needs you may have, as well as providing us feedback on your care experience. We strive to always provide excellent care and thank you for your feedback and for choosing [facility]. Prescriptions: New prednisone 10 mg tablet 10 mg PO QDAY Qty: 2 0RF cefdinir 300 MG capsule 300 mg PO BID Qty: 8 0RF Continued albuterol sulfate 2.5 mg /3 mL (0.083 %) solution for nebulization 2.5 mg INHALATION Q6H PRN (Reason: shortness of breath or wheezing) Qty: 1080 3RF clobetasol 0.05 % ointment 1 applic TOPICAL BID Qty: 60 0RF Rx Instructions: 2 weeks at a time max. Avoid use on face and genitals. folic acid 1 mg tablet 1 mg PO BID Qty: 180 3RF magnesium oxide 400 mg magnesium capsule 400 mg PO QDAY Qty: 90 3RF pantoprazole 40 mg tablet,delayed release (DR/EC) 40 mg PO QDAY Qty: 90 3RF levothyroxine 25 mcg tablet 25 mcg PO QDAY Qty: 90 3RF carvedilol 25 mg tablet 25 mg PO BID Qty: 180 3RF atorvastatin 40 mg tablet 40 mg PO QHS Qty: 90 3RF hydrochlorothiazide 12.5 mg tablet 25 mg tablet 25 mg PO QAM Qty: 90 3RF calcium 1000/magnesium 500 1 tab PO QDAY 0RF isosorbide mononitrate 60 mg tablet extended release 24 hr 60 mg PO QDAY 0RF aspirin 81 mg tablet,delayed release (DR/EC) 81 mg PO QDAY 0RF sodium bicarbonate 650 mg tablet 650 mg PO BID Qty: 180 3RF cholecalciferol (vitamin D3) 125 mcg (5,000 unit) tablet 125 mcg (5,000 unit) tablet 125 mcg PO QDAY 0RF amlodipine 5 mg tablet 10 mg PO QDAY 0RF losartan 50 mg tablet 50 mg PO BID 0RF prednisone 5 mg tablet 5 mg PO QDAY Qty: 30 0RF Rx Instructions: TAKE WITH (4) ONE MG TABLETS -TOTAL 9MG Other Ambulatory Orders: OT Discharge Order (Routine) Location: None Selected Ordered By: Nathen Sanz Physical Therapy at Discharge - General (Routine) Location: None Selected Ordered By: Nathen Sanz Follow Up Plan Follow up with: Murphy Kyle DO [Primary Care Provider] - (Please contact office to schedule follow-up appointment within 7-10 days.) Patient Disposition: Xfer SNF Prognosis: Good Rehab Potential: Fair I certify that the patient requires SNF services: Yes Overall status at discharge: patient is progressing back to baseline Discharge Orders: Discharge Order (Routine); Ordered 10/13/21 Ordered By: Nathen Sanz QUALITY VTE Deep Vein Thrombosis/Pulmonary Embolism Present on Admission: No
[2021-10-13] MEDS: ISOSORBIDE MONONITRATE 60 MG TAB.XL.24H PO SCH (08:59)
[2021-10-13] MEDS: amLODIPine 5 MG TABLET PO SCH (08:59)
[2021-10-13] MEDS: ENOXAPARIN 40 MG/0.4 ML SYRINGE SQ SCH (08:59)
[2021-10-13] MEDS: cefTRIAXone 2 GM in DEXTROSE 5% IN WATER 50 ML IV SCH (08:59)
[2021-10-13] MEDS: LOSARTAN 50 MG TABLET PO SCH (09:00)
[2021-10-13] MEDS: DOCUSATE SODIUM 100 MG CAPSULE PO SCH (09:00)
[2021-10-13] MEDS: ASPIRIN 81 MG TAB.CHEW PO SCH (09:00)
[2021-10-13] MEDS: MAGNESIUM OXIDE 400 MG TABLET PO SCH (09:00)
[2021-10-13] MEDS: SODIUM BICARBONATE 650 MG TABLET PO SCH (09:00)
[2021-10-19 19:07] LABS: M. Pneumoniae IGG < or = 0.90; M. Pneumoniae IGM 135 U/mL
== END 2021-10-13 11:10 | DRG 193 ==
LOC: ED 07:17 → MEDSUR 14:23
PROVIDERS: ADMIT Internal Medicine; ATTEND Internal Medicine

== ENCOUNTER 2021-11-11 12:58 | Inpatient (IN) ==
--- NOTE | 2021-11-11 13:17 | Emergency Department Note ---
SOB HPI General Chief Complaint: Shortness of Breath/Dyspnea Stated Complaint: shortness of breath, thoracentesis Time Seen by Provider: 11/11/21 13:11 Source: patient Mode of arrival: wheelchair Limitations: no limitations History of Present Illness HPI Narrative: Narrative: 81-year-old male presents emergency department complaining of being unable to breathe for the last 1 to 2 days. Rates his discomfort as a 8 on a 0-to-10 scale. States it is constant. States is gotten worse with time. Believes it is associated with him having had fluid taken out of his back (thoracentesis) at 2 PM on Tuesday (2 days ago). He denies any pain with this. There is no radiation of the symptoms. Dull sensation. Patient has a complicated history which includes congestive heart failure, COPD, chronic kidney disease. Patient states that he lives in a rest home. Related Data Home Medications Medication Instructions Recorded Confirmed aspirin 81 mg tablet,delayed 81 mg PO QDAY 10/06/15 11/11/21 release calcium 1000/magnesium 500 1 tab PO QDAY 02/05/19 11/11/21 cholecalciferol (vitamin D3) 125 125 mcg PO QDAY 02/21/20 11/11/21 mcg (5,000 unit) tablet amlodipine 5 mg tablet 10 mg PO QDAY tab 08/10/21 11/11/21 isosorbide mononitrate 60 mg 60 mg PO QDAY tab 08/10/21 11/11/21 tablet,extended release 24 hr losartan 50 mg tablet 50 mg PO BID tab 08/10/21 11/11/21 bismuth subsalicylate 262 mg/15 mL 524 mg PO Q30-60M PRN 10/27/21 11/11/21 oral suspension (Pepto-Bismol) fluticasone fur. 200 mcg-umeclid 1 inh INHALATION QDAY 11/11/21 11/11/21 62.5 mcg-vilant 25 mcg inhalat.powder (Trelegy Ellipta) Previous Rx's Medication Instructions Recorded albuterol sulfate 2.5 mg (3 mL) INHALATION Q6H PRN 04/16/20 #1080 ml magnesium oxide 400 mg PO QDAY #90 cap 02/18/21 atorvastatin 40 mg tablet 40 mg PO QHS #90 tab 02/25/21 carvedilol 25 mg tablet 25 mg PO BID #180 tab 02/25/21 levothyroxine 25 mcg tablet 25 mcg PO QDAY #90 tab 02/25/21 pantoprazole 40 mg tablet,delayed 40 mg PO QDAY #90 tab 02/25/21 release sodium bicarbonate 650 mg tablet 650 mg PO BID #180 tab 05/06/21 hydrochlorothiazide 25 mg tablet 25 mg PO QAM #90 tab 08/27/21 hydrocodone 5 mg-acetaminophen 325 1 tab PO Q6H PRN #12 tab 10/26/21 mg tablet Allergies Allergy/AdvReac Type Severity Reaction Status Date / Time levofloxacin [From Levaquin] AdvReac Mild Hypotension Verified 11/11/21 12:59 Review of Systems ROS ROS Narrative: Narrative: Constitutional: Denies fever Eyes: Denies eye pain ENT ED: Reports rhinorrhea; Denies throat pain Cardiovascular: Reports chest pain (Thoracentesis site); Denies edema (No pedal edema noted) Respiratory: Reports shortness of breath and cough Gastrointestinal: Denies abdominal pain, nausea, vomiting or diarrhea Genitourinary: Denies dysuria Musculoskeletal: Denies back pain Neurological: Denies headache Psychiatric: Denies anxiety Hematological/Lymphatic: Denies easy bleeding Allergic/Immunologic: Denies facial swelling PFSH Narrative Patient History Narrative: Narrative: Medical/Surgical/Family History All Active Problems (Updated 11/11/21 @ 17:46 by Sunny Velázquez MD) Acute cardiac pulmonary edema (Acute) Anemia (Acute) Acute bronchospasm (Acute) Elevated troponin I level (Acute) Acute on chronic kidney failure (Acute) Hypoxia (Acute) Community acquired pneumonia (Acute) Bilateral lower extremity edema (Acute) Dyspnea on exertion (Acute) Medicare annual wellness visit, subsequent (Acute) Acute pain of left shoulder (Acute) Toe fracture, left (Acute) Borderline low blood pressure determined by examination (Acute) Iatrogenic adrenal insufficiency (Chronic) Cellulitis (Acute) Injury of left foot (Acute) Right foot injury (Acute) Secondary hyperparathyroidism of renal origin (Chronic) Anemia due to stage 3a chronic kidney disease (Chronic) Osteopenia (Acute) Medicare annual wellness visit, initial (Acute) Paronychia (Acute) CHF (congestive heart failure) (Chronic) Fall (Acute) Chronic kidney disease (CKD) stage G3a/A2, moderately decreased glomerular filtration rate (GFR) between 45-59 mL/min/1.73 square meter and albuminuria creatinine ratio between 30-299 mg/g (Chronic) Colon cancer screening (Acute) Renal artery stenosis in 1 of 2 vessels (Chronic) Diarrhea (Acute) Alcohol abuse (Chronic) Risk for falls (Chronic) Nocturnal hypoxemia (Chronic) Localized edema due to fluid overload (Chronic) Steroid dependent (Chronic) PAF (paroxysmal atrial fibrillation) (Chronic) Abdominal pain (Acute) Finger pain (Chronic) Colon polyp (Chronic) Fatigue (Chronic) 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) Erosive gastritis (Chronic) 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) Upper gastrointestinal hemorrhage (Chronic) Acute exacerbation of chronic obstructive airways disease (Chronic) Bronchitis (Chronic) Community acquired pneumonia (Chronic) Foot drop, right (Chronic) Metabolic Syndrome X (Chronic) Cubital tunnel syndrome of both upper extremities (Chronic) Hyperglycemia (Chronic) Hypertension (Chronic) Hypomagnesemia (Chronic) Gout (Chronic) Chronic obstructive pulmonary disease (Chronic) Hypertensive renal disease (Chronic) Hx of esophagogastroduodenoscopy (Chronic 12/17/14) Hx of colonoscopy (Chronic) Vitamin D deficiency (Chronic) Vitamin B 12 deficiency (Chronic) Thrombocytopenia (Chronic) Schatzki's ring (Chronic) Psoriasis (Chronic) Premature atrial contractions (Chronic) Polymyalgia rheumatica (Chronic) PNA (pneumonia) (Chronic) Peripheral vascular disease (Chronic) Paresthesia (Chronic) Overweight (Chronic) Neck pain (Chronic) Macrocytosis (Chronic 01/25/11) Low back pain (Chronic) Long-term current use of steroids (Chronic) Knee pain (Chronic) Hypothyroidism (acquired) (Chronic) Hypertension, essential (Chronic) Hyperlipidemia (Chronic) Hyperkalemia (Chronic) Hip pain (Chronic) Hx of gout (Chronic) Gastroesophageal reflux (Chronic) Gastritis (Chronic) Fatty liver disease, nonalcoholic (Chronic) Emphysema lung (Chronic) Dysmetabolic syndrome X (Chronic) Dermatitis (Chronic) DJD (degenerative joint disease) (Chronic) Simple cyst of kidney (Chronic) Coronary artery disease (Chronic 08/22/12) Colon polyp (Chronic 12/16/14) Vascular claudication (Chronic 04/01/13) Carotid stenosis (Chronic) Carotid bruit (Chronic 02/16/13) Atherosclerosis (Chronic) Anemia (Chronic) Abnormal transaminases (Chronic) Medical History Abnormal transaminases Acute exacerbation of chronic obstructive airways disease Acute exacerbation of chronic obstructive airways disease Resolved Continue albuterol nebs as needed Continue prednisone 10 mg daily Follows with pulmonology Acute kidney failure (08/21/08) Alcohol abuse Anemia Macrocytic. I believe it is improving. Labs from 12/05 look hemoconcentrated. Status post 1 unit PRBC and IV iron infusion in October 2019 Continue iron and vitamin C Continue to monitor CBC closely. Check CBC in 1 month. Iron studies are scheduled to be checked in 2 months by nephrology. Atherosclerosis Atrial fibrillation wWle in hospital with pneumonia Atrial fibrillation Carotid bruit (02/16/13) left>right Carotid stenosis Cellulitis Cellulitis Cerebrovascular accident Chest pain Recorded 08/14/12-also on 01/04/2007, 04/16/06; 12/21/10 Chronic obstructive pulmonary disease Follows with pulmonology. We will see them in 2 weeks. Does not qualify for oxygen concentrator based on ambulatory O2 today. Colon cancer screening Colonoscopy is planned, but we will have to cancel this until he gets his CABG. Colon polyp (12/16/14) TA HP Colon polyp 2014 Community acquired pneumonia Resolved with Augmentin and azithromycin Contusion of head COPD (chronic obstructive pulmonary disease) with chronic bronchitis Follows with pulmonology. Albuterol as needed Coronary artery disease (08/22/12) Status post PCI Continue medical management with aspirin, statin, beta-karla Follows with cardiology Cubital tunnel syndrome of both upper extremities Dermatitis 05/2011-chronic, of the lower extremities DJD (degenerative joint disease) Dysmetabolic syndrome X Emphysema lung Erosive gastritis Fall Ecchymosis on bilateral arms. Left arm with healing skin slip. Walker recommended at all times (currently using a cane). He has handrails on all his stairs at home. Fatty liver disease, nonalcoholic Foot drop, right Gastritis Gastroesophageal reflux Gout Hip pain recorded 03/23/08-bilateral Hx of gout Hx of urinary tract infection Hyperglycemia Hyperkalemia Hyperlipidemia Hypertension Hypertension, essential Moderately well-controlled on amlodipine 5 mg daily, Coreg 25 mg twice daily, hydrochlorothiazide 25 mg daily (increased last visit), and losartan 50 mg nightly. Encouraged improved compliance with low-sodium diet Hypertensive renal disease BP at goal in the clinic today imp to keep BP log given multiple medical issues Goal BP is less than 140/90 ct current medications follow low sodium diet exercise if possible Hypomagnesemia Hypothyroidism (acquired) TSH mildly elevated. Educated patient on timing of levothyroxine dose Recheck TSH in 6 weeks Injury of left foot Internal derangement of knee recorded 12/30/10 patellor erosion secondary to Cerclage wire Knee pain 05/2011-post tka Long-term current use of steroids Prednisone and triamcinolone Low back pain 05/2011 chronic low back pain Macrocytosis (01/25/11) Medicare annual wellness visit, initial Medicare annual wellness visit, subsequent Metabolic Syndrome X Myocardial infarction acute (12/22/10) Neck pain recorded 11/16/2010 OA Nocturnal hypoxemia Recommend patient continue oxygen supplementation at night Occlusion of right internal carotid artery Overweight Palpitations Paresthesia Right Leg Peripheral vascular disease severe. bilateral iliac artery stents PNA (pneumonia) Likely due to aspiration Polymyalgia rheumatica Recent flare Was put on prednisone 40 mg while in the hospital, then weaned off quickly, but pain flared up again Post-polypectomy bleeding Resolved Premature atrial contractions Psoriasis Most noticeable pretibial areas Psoriatic arthritis Pretibial psoriasis skin lesions Renal artery stenosis in 1 of 2 vessels Right renal artery 50 to 70% stenosis. Blood pressure currently well controlled, but consider further work-up and possible stenting if this becomes a problem Right foot injury Risk for falls Schatzki's ring Simple cyst of kidney bilateral Thoracic back pain Thrombocytopenia H/O Upper gastrointestinal hemorrhage post gastric polypectomy Vascular claudication (04/01/13) Legs Vitamin B 12 deficiency H/O Vitamin D deficiency H/O Surgical History H/O cardiac catheterization (~11/15/19) And coronary angiography by Dr. Jarrod Griffin History of carotid endarterectomy 02/2015 History of intravascular stent placement 11/2010 Multi-RCA 03/2006 and right iliac stent. Also [place] x 2 RCA + PRO/RCA 11/2010 RE do bilateral legs 12/2014- Dr Jon Hx of angioplasty Hx of cardiac catheterization 12/21/2010 and PCI Hx of cataract surgery 12/2005 Hx of colonoscopy 08/30/07-AP, HP. 12/16/14-TA & HP-5 year follow up. Hx of coronary angioplasty Hx of esophagogastroduodenoscopy (12/17/14) 12/17/14-erosive esophagitis and stricture. 03/16/17-gastric polypectomy and erosive gastritis. 03/17/17-GI bleed post polypectomy Hx of foot surgery Ankle brachial indices Hx of knee surgery recorded 04/02/87 and 11/01--Right 10/31/12 had hardware removed from right knee Hx of plastic surgery 1959's nose Hx of thumb surgery Hx of tonsillectomy recorded 04/02/87 Hx of total knee arthroplasty 2011, 12/2008 Right knee x's 3 2007 Family History mother Malignant neoplasm, Onset Age: 72 father Cerebrovascular accident (CVA), Onset Age: 49 Social History Smoking Status: Former smoker Alcohol Intake Frequency: a few times a month Substance Use: does not use Exam Narrative Narrative: Narrative: General Limitations: no limitations General appearance: Present alert and in distress (Respiratory) Head Head: Present atraumatic and normocephalic Eye Eye: Present normal appearance and EOMI ENT ENT: Present normal oropharynx and mucous membranes moist Neck Neck: Present normal inspection and trachea midline Chest Chest: Present tenderness (At thoracentesis site) Respiratory Respiratory: Present respiratory distress and rales/crackles Cardiovascular Cardiovascular: Present regular rate and normal rhythm Adbominal Abdominal: Present soft and other (Obese); Absent tenderness Extremities Extremities: Present normal inspection and full ROM; Absent pedal edema (Surprisingly no edema) or pretibial edema Back Back: Present normal inspection; Absent tenderness Neurological Neurological: Present alert and oriented X3 Psychiatric Psychiatric: Present normal affect and normal mood Skin Skin: Present warm (WNL) and dry Course Reevaluation(s) Reevaluation #1: Patient breathing much better. Able to sleep. Less noise. On auscultation patient continues to have some wheezing but much reduced from earlier. I have discussed the case with Dr. Garcias. The patient has an elevated troponin and I will repeat that at the 3-hour nicole to see if it is changed. Patient has a history of elevated troponins with previous visits. Repeat EKG revealed a normal sinus rhythm normal rate of [address] elevation Time: 16:10 Vital Signs Vital signs: Vital Signs Temperature 98.6 F 11/11/21 12:58 Pulse Rate 63 11/11/21 12:58 Respiratory Rate 28 H 11/11/21 12:58 Blood Pressure 134/82 11/11/21 12:58 Pulse Oximetry (%) 92 11/11/21 12:58 Temperature 98.6 F 11/11/21 12:58 Pulse Rate 56 L 11/11/21 17:31 Respiratory Rate 18 11/11/21 17:31 Blood Pressure 120/61 11/11/21 17:31 Pulse Oximetry (%) 96 11/11/21 17:31 [facility] MDM Narrative Medical decision making narrative: 81-year-old male presents emerged department with severe shortness of breath. Patient status post thoracentesis to remove pleural effusion on the left side of the chest 2 days ago. Examination reveals extensive wheezes as well as rales. Differential diagnosis includes congestive heart failure, pulmonary edema, pneumonia, acute bronchospasm, COPD exacerbation, other Patient was treated with 40 mg of Lasix IV initially and this took off some of the excess fluid and the patient was breathing better. Patient was given a 1 hour neb treatment with 10 mg of albuterol and 2.5 mg of Atrovent. With this commendation his wheezing improved although he was still wheezing afterwards. Laboratory values included a white count that was normal at 7.6 and a hemoglobin that was low at 8.5 though he historically has low hemoglobins. BNP was elevated at 5400. Troponin was elevated at 0.123 has a history of elevated troponins in the past and has a history of renal disease acute on chronic renal failure. Creatinine was only 1.0 but BUN was 30 so there is a 30:1 ratio. Initial EKG did not show ischemic changes. Chest x-ray read by radiologist as showing densities in both lower sides of the chest pneumonia versus pulmonary edema. Patient improved with my treatment of his suspected pulmonary edema. In view of the elevated troponin I repeated that at 3 hours and noted it to be slightly lower at 0.11. I also repeated an EKG which showed a sinus rhythm without acute ischemic changes. I discussed the case with the hospitalist Dr. Musa who agreed to evaluate and admit the patient for further care. Lab Data Result diagrams: 11/11/21 13:11 11/11/21 13:11 Labs: Lab Results 11/11/21 11/11/21 11/11/21 Range/Units 13:11 13:11 13:12 WBC 7.6 (4.5-11.0) K/mcL RBC 2.92 L (4.63-6.08) M/mcL Hgb 8.5 L (13.7-17.5) g/dL Hct 27.8 L (40.1-51.0) % MCV 95.2 (80.0-100.0) fL MCH 29.1 (26.0-34.0) pg MCHC 30.6 L (31.0-36.0) g/dL RDW 19.3 H (11.5-14.5) % Plt Count 102 L (140-440) K/mcL MPV 11.5 H (7.4-10.4) fL Neut % (Auto) 68.9 (38.0-78.0) % Lymph % (Auto) 7.9 L (15.5-49.0) % [place] % (Auto) 22.7 H (1.0-12.0) % Eos % (Auto) 0.4 (0.0-7.0) % Baso % (Auto) 0.1 (0.0-2.0) % Lymph # (Auto) 0.60 L (1.50-4.80) K/mcL [place] # (Auto) 1.73 H (0.10-0.90) K/mcL Eos # (Auto) 0.03 (0.00-0.70) K/mcL Baso # (Auto) 0.01 (0.00-0.30) K/mcL Absolute Neutrophils 5.24 (1.80-8.00) K/mcL Sodium 142 (133-145) mmol/L Potassium 4.3 (3.3-5.1) mmol/L Chloride 106 (96-108) mmol/L Carbon Dioxide 23 (22-30) mmol/L Anion Gap 13.0 (8.0-16.0) BUN 30 H (8-23) mg/dL Creatinine 1.0 (0.7-1.2) mg/dL GFR Calculation 71 Glucose 96 (70-105) mg/dL Calcium 8.7 (8.6-10.4) mg/dL Total Bilirubin 1.0 (0.1-1.0) mg/dL AST 25 (<40) U/L ALT 42 H (<40) U/L Alkaline Phosphatase 71 (39-117) U/L Troponin T 0.12 H* (<0.03) ng/mL NT-Pro-B Natriuret Pep 5402.0 H (<450.0) pg/mL Total Protein 6.0 (5.9-8.4) gm/dL Albumin 3.6 (3.2-5.2) gm/dL Globulin 2.4 (2.2-3.7) gm/dL Albumin/Globulin Ratio 1.5 (1.0-2.3) 11/11/21 Range/Units 16:19 WBC (4.5-11.0) K/mcL RBC (4.63-6.08) M/mcL Hgb (13.7-17.5) g/dL Hct (40.1-51.0) % MCV (80.0-100.0) fL MCH (26.0-34.0) pg MCHC (31.0-36.0) g/dL RDW (11.5-14.5) % Plt Count (140-440) K/mcL MPV (7.4-10.4) fL Neut % (Auto) (38.0-78.0) % Lymph % (Auto) (15.5-49.0) % [place] % (Auto) (1.0-12.0) % Eos % (Auto) (0.0-7.0) % Baso % (Auto) (0.0-2.0) % Lymph # (Auto) (1.50-4.80) K/mcL [place] # (Auto) (0.10-0.90) K/mcL Eos # (Auto) (0.00-0.70) K/mcL Baso # (Auto) (0.00-0.30) K/mcL Absolute Neutrophils (1.80-8.00) K/mcL Sodium (133-145) mmol/L Potassium (3.3-5.1) mmol/L Chloride (96-108) mmol/L Carbon Dioxide (22-30) mmol/L Anion Gap (8.0-16.0) BUN (8-23) mg/dL Creatinine (0.7-1.2) mg/dL GFR Calculation Glucose (70-105) mg/dL Calcium (8.6-10.4) mg/dL Total Bilirubin (0.1-1.0) mg/dL AST (<40) U/L ALT (<40) U/L Alkaline Phosphatase (39-117) U/L Troponin T 0.11 H* (<0.03) ng/mL NT-Pro-B Natriuret Pep (<450.0) pg/mL Total Protein (5.9-8.4) gm/dL Albumin (3.2-5.2) gm/dL Globulin (2.2-3.7) gm/dL Albumin/Globulin Ratio (1.0-2.3) ED POC Tests ED POC Tests: MAGDA - Influenza A Negative MAGDA - Influenza B Negative MAGDA - SARS Antigen Negative EKG Data EKG #1: EKG attestation: Yes I reviewed and interpreted this EKG. EKG shows normal: sinus rhythm Rate: normal [place]/QRS: normal ST segment elevation in: None ST segment depression in: None Q waves: v1 and v2 Hyperacute T waves: None Interpretation: other (Abnormal EKG) EKG #2: EKG attestation: Yes I reviewed and interpreted this EKG. EKG shows normal: sinus rhythm Rate: normal Rhythm: NSR [place]/QRS: normal Heart block present: None ST segment elevation in: None ST segment depression in: None T wave inversions noted in: None Hyperacute T waves: None Interpretation: normal EKG Discharge Plan Patient/Caregiver Discharge Instructions Pt seen by TICKETING AGENT/PA only: No Clinical Impression: Acute cardiac pulmonary edema, Anemia, Acute bronchospasm, Elevated troponin I level Patient Disposition: Xfer As Inpt ([facility]) Condition: Fair Follow up with: Murphy Kyle DO [Primary Care Provider] - Prescriptions: No Action albuterol sulfate 2.5 mg /3 mL (0.083 %) solution for nebulization 2.5 mg INHALATION Q6H PRN (Reason: shortness of breath or wheezing) Qty: 1080 3RF magnesium oxide 400 mg magnesium capsule 400 mg PO QDAY Qty: 90 3RF pantoprazole 40 mg tablet,delayed release (DR/EC) 40 mg PO QDAY Qty: 90 3RF levothyroxine 25 mcg tablet 25 mcg PO QDAY Qty: 90 3RF carvedilol 25 mg tablet 25 mg PO BID Qty: 180 3RF atorvastatin 40 mg tablet 40 mg PO QHS Qty: 90 3RF hydrochlorothiazide 12.5 mg tablet 25 mg tablet 25 mg PO QAM Qty: 90 3RF hydrocodone-acetaminophen 5-325 mg tablet 1 tab PO Q6H PRN (Reason: pain) Qty: 12 0RF calcium 1000/magnesium 500 1 tab PO QDAY 0RF isosorbide mononitrate 60 mg tablet extended release 24 hr 60 mg PO QDAY 0RF bismuth subsalicylate [Pepto-Bismol] 262 mg/15 mL suspension 524 mg PO Q30-60M PRN (Reason: Indigestion) 0RF Rx Instructions: do not exceed 8 doses in a 24 hour period aspirin 81 mg tablet,delayed release (DR/EC) 81 mg PO QDAY 0RF sodium bicarbonate 650 mg tablet 650 mg PO BID Qty: 180 3RF cholecalciferol (vitamin D3) 125 mcg (5,000 unit) tablet 125 mcg (5,000 unit) tablet 125 mcg PO QDAY 0RF amlodipine 5 mg tablet 10 mg PO QDAY 0RF losartan 50 mg tablet 50 mg PO BID 0RF Trelegy Ellipta 200-62.5-25 mcg Blister With Device 1 inh INHALATION QDAY 0RF
[2021-11-11] MEDS ORDERED: FUROSEMIDE 40 MG/4 ML VIAL IV ONE (13:26)
--- NOTE | 2021-11-11 13:29 | XRay Report ---
HISTORY: Increasing shortness of breath following recent thoracentesis FINDINGS: There are large consolidating alveolar infiltrates in the central portions and lower lobes bilaterally. The greatest consolidation is on the left side. There has been no reoccurrence of the right side pleural effusion following the thoracentesis performed on 11/09/21. There is a stable small left-sided pleural effusion. The heart is mildly enlarged. Pulmonary vessels are obscured by the alveolar opacities. The consolidation in the lung has become significantly worse since 11/09/21. IMPRESSION: Severe bilateral alveolar opacities which could be due to pulmonary edema or severe bilateral pneumonia. No recurrent right-sided pleural effusion and no pneumothorax following recent right-sided thoracentesis Interpreted and Authenticated by: Afshin García 11/11/21
[2021-11-11] MEDS ORDERED: ALBUTEROL SULFATE 5 MG/ML NEB SOLUTION BOTTLE NEB ONE (13:31)
[2021-11-11] MEDS ORDERED: IPRATROPIUM 2.5 ML AMPUL.NEB NEB ONE (13:31)
[2021-11-11 14:28] LABS: ALT/SGPT 42 U/L (<40); AST/SGOT 25 U/L (<40); Albumin 3.6 gm/dL (3.2-5.2); Albumin/Globulin Ratio 1.5 (1.0-2.3); Alkaline Phosphatase 71 U/L (39-117); Blood Urea Nitrogen 30 mg/dL (8-23); Calcium 8.7 mg/dL (8.6-10.4); Carbon Dioxide 23 mmol/L (22-30); Chloride 106 mmol/L (96-108); Globulin 2.4 gm/dL (2.2-3.7); Glomerular Filtration Rate 71; Glucose 96 mg/dL (70-105)
[2021-11-11 14:48] LABS: Basophils # (Auto) 0.01 K/mcL (0.00-0.30); Basophils % (Auto) 0.1 % (0.0-2.0); Eosinophils # (Auto) 0.03 K/mcL (0.00-0.70); Eosinophils % (Auto) 0.4 % (0.0-7.0); Hematocrit 27.8 % (40.1-51.0); Hemoglobin 8.5 g/dL (13.7-17.5); Lymphocytes % (Auto) 7.9 % (15.5-49.0); Mean Cell Volume 95.2 fL (80.0-100.0); Mean Corpuscular HGB Conc 30.6 g/dL (31.0-36.0); Mean Platelet Volume 11.5 fL (7.4-10.4); Monocytes # (Auto) 1.73 K/mcL (0.10-0.90); Monocytes % (Auto) 22.7 % (1.0-12.0); Neutrophils % (Auto) 68.9 % (38.0-78.0); Platelet Count 102 K/mcL (140-440); RBC 2.92 M/mcL (4.63-6.08); Red Cell Distribution Width 19.3 % (11.5-14.5); WBC 7.6 K/mcL (4.5-11.0)
--- NOTE | 2021-11-11 17:48 | Internal Med History&Physical ---
HPI History of Present Illness Patient information: Note initiated : 11/11/21 at 5:43 pm Service Date, if different from initiated Date: [] Patient: Kike Ramirez 81 y/o M admitted on for shortness of breath, thoracentesis. Chief Complaint: [] History of present illness: 81yoM Presents the ED with shortness of breath the past several days. He did receive a thoracentesis 2 days ago where liter of transudate of appearing fluid was r emoved. He was mildly hypoxic in the ED. On work-up he had chest x-ray which showed pulmonary edema and patient was given 40 of Lasix. Did have history of CAD and he had a elevated troponin with a repeat 3 hours later which was the same. Patient does have a history of chronic kidney disease. No chest pain or EKG changes per ED. This is likely demand ischemia from heart failure. Patient states he is more short of breath and lays on his back. Has a mild nonproductive cough Patient was here in in mid September for pneumonia versus aspiration pneumonia. He was given 40 of Lasix in the ED and put out 800 cc by the time I saw him.. Review of Systems: Pertinent positives as above. Denies headache/fever/chills/nausea/vomiting/chest or abdominal pain/diarrhea. Remaining 10 point review of system reviewed negative. PFSH PFSH All Active Problems (Updated 11/11/21 @ 17:46 by Sunny Velázquez MD) Acute cardiac pulmonary edema (Acute) Anemia (Acute) Acute bronchospasm (Acute) Elevated troponin I level (Acute) Acute on chronic kidney failure (Acute) Hypoxia (Acute) Community acquired pneumonia (Acute) Bilateral lower extremity edema (Acute) Dyspnea on exertion (Acute) Medicare annual wellness visit, subsequent (Acute) Acute pain of left shoulder (Acute) Toe fracture, left (Acute) Borderline low blood pressure determined by examination (Acute) Iatrogenic adrenal insufficiency (Chronic) Cellulitis (Acute) Injury of left foot (Acute) Right foot injury (Acute) Secondary hyperparathyroidism of renal origin (Chronic) Anemia due to stage 3a chronic kidney disease (Chronic) Osteopenia (Acute) Medicare annual wellness visit, initial (Acute) Paronychia (Acute) CHF (congestive heart failure) (Chronic) Fall (Acute) Chronic kidney disease (CKD) stage G3a/A2, moderately decreased glomerular filtration rate (GFR) between 45-59 mL/min/1.73 square meter and albuminuria creatinine ratio between 30-299 mg/g (Chronic) Colon cancer screening (Acute) Renal artery stenosis in 1 of 2 vessels (Chronic) Diarrhea (Acute) Alcohol abuse (Chronic) Risk for falls (Chronic) Nocturnal hypoxemia (Chronic) Localized edema due to fluid overload (Chronic) Steroid dependent (Chronic) PAF (paroxysmal atrial fibrillation) (Chronic) Abdominal pain (Acute) Finger pain (Chronic) Colon polyp (Chronic) Fatigue (Chronic) 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) Erosive gastritis (Chronic) 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) Upper gastrointestinal hemorrhage (Chronic) Acute exacerbation of chronic obstructive airways disease (Chronic) Bronchitis (Chronic) Community acquired pneumonia (Chronic) Foot drop, right (Chronic) Metabolic Syndrome X (Chronic) Cubital tunnel syndrome of both upper extremities (Chronic) Hyperglycemia (Chronic) Hypertension (Chronic) Hypomagnesemia (Chronic) Gout (Chronic) Chronic obstructive pulmonary disease (Chronic) Hypertensive renal disease (Chronic) Hx of esophagogastroduodenoscopy (Chronic 12/17/14) Hx of colonoscopy (Chronic) Vitamin D deficiency (Chronic) Vitamin B 12 deficiency (Chronic) Thrombocytopenia (Chronic) Schatzki's ring (Chronic) Psoriasis (Chronic) Premature atrial contractions (Chronic) Polymyalgia rheumatica (Chronic) PNA (pneumonia) (Chronic) Peripheral vascular disease (Chronic) Paresthesia (Chronic) Overweight (Chronic) Neck pain (Chronic) Macrocytosis (Chronic 01/25/11) Low back pain (Chronic) Long-term current use of steroids (Chronic) Knee pain (Chronic) Hypothyroidism (acquired) (Chronic) Hypertension, essential (Chronic) Hyperlipidemia (Chronic) Hyperkalemia (Chronic) Hip pain (Chronic) Hx of gout (Chronic) Gastroesophageal reflux (Chronic) Gastritis (Chronic) Fatty liver disease, nonalcoholic (Chronic) Emphysema lung (Chronic) Dysmetabolic syndrome X (Chronic) Dermatitis (Chronic) DJD (degenerative joint disease) (Chronic) Simple cyst of kidney (Chronic) Coronary artery disease (Chronic 08/22/12) Colon polyp (Chronic 12/16/14) Vascular claudication (Chronic 04/01/13) Carotid stenosis (Chronic) Carotid bruit (Chronic 02/16/13) Atherosclerosis (Chronic) Anemia (Chronic) Abnormal transaminases (Chronic) Medical History Abnormal transaminases Acute exacerbation of chronic obstructive airways disease Acute exacerbation of chronic obstructive airways disease Resolved Continue albuterol nebs as needed Continue prednisone 10 mg daily Follows with pulmonology Acute kidney failure (08/21/08) Alcohol abuse Anemia Macrocytic. I believe it is improving. Labs from 12/05 look hemoconcentrated. Status post 1 unit PRBC and IV iron infusion in October 2019 Continue iron and vitamin C Continue to monitor CBC closely. Check CBC in 1 month. Iron studies are scheduled to be checked in 2 months by nephrology. Atherosclerosis Atrial fibrillation wWle in hospital with pneumonia Atrial fibrillation Carotid bruit (02/16/13) left>right Carotid stenosis Cellulitis Cellulitis Cerebrovascular accident Chest pain Recorded 08/14/12-also on 01/04/2007, 04/16/06; 12/21/10 Chronic obstructive pulmonary disease Follows with pulmonology. We will see them in 2 weeks. Does not qualify for oxygen concentrator based on ambulatory O2 today. Colon cancer screening Colonoscopy is planned, but we will have to cancel this until he gets his CABG. Colon polyp (12/16/14) TA HP Colon polyp 2014 Community acquired pneumonia Resolved with Augmentin and azithromycin Contusion of head COPD (chronic obstructive pulmonary disease) with chronic bronchitis Follows with pulmonology. Albuterol as needed Coronary artery disease (08/22/12) Status post PCI Continue medical management with aspirin, statin, beta-karla Follows with cardiology Cubital tunnel syndrome of both upper extremities Dermatitis 05/2011-chronic, of the lower extremities DJD (degenerative joint disease) Dysmetabolic syndrome X Emphysema lung Erosive gastritis Fall Ecchymosis on bilateral arms. Left arm with healing skin slip. Walker recommended at all times (currently using a cane). He has handrails on all his stairs at home. Fatty liver disease, nonalcoholic Foot drop, right Gastritis Gastroesophageal reflux Gout Hip pain recorded 03/23/08-bilateral Hx of gout Hx of urinary tract infection Hyperglycemia Hyperkalemia Hyperlipidemia Hypertension Hypertension, essential Moderately well-controlled on amlodipine 5 mg daily, Coreg 25 mg twice daily, hydrochlorothiazide 25 mg daily (increased last visit), and losartan 50 mg nightly. Encouraged improved compliance with low-sodium diet Hypertensive renal disease BP at goal in the clinic today imp to keep BP log given multiple medical issues Goal BP is less than 140/90 ct current medications follow low sodium diet exercise if possible Hypomagnesemia Hypothyroidism (acquired) TSH mildly elevated. Educated patient on timing of levothyroxine dose Recheck TSH in 6 weeks Injury of left foot Internal derangement of knee recorded 12/30/10 patellor erosion secondary to Cerclage wire Knee pain 05/2011-post tka Long-term current use of steroids Prednisone and triamcinolone Low back pain 05/2011 chronic low back pain Macrocytosis (01/25/11) Medicare annual wellness visit, initial Medicare annual wellness visit, subsequent Metabolic Syndrome X Myocardial infarction acute (12/22/10) Neck pain recorded 11/16/2010 OA Nocturnal hypoxemia Recommend patient continue oxygen supplementation at night Occlusion of right internal carotid artery Overweight Palpitations Paresthesia Right Leg Peripheral vascular disease severe. bilateral iliac artery stents PNA (pneumonia) Likely due to aspiration Polymyalgia rheumatica Recent flare Was put on prednisone 40 mg while in the hospital, then weaned off quickly, but pain flared up again Post-polypectomy bleeding Resolved Premature atrial contractions Psoriasis Most noticeable pretibial areas Psoriatic arthritis Pretibial psoriasis skin lesions Renal artery stenosis in 1 of 2 vessels Right renal artery 50 to 70% stenosis. Blood pressure currently well controlled, but consider further work-up and possible stenting if this becomes a problem Right foot injury Risk for falls Schatzki's ring Simple cyst of kidney bilateral Thoracic back pain Thrombocytopenia H/O Upper gastrointestinal hemorrhage post gastric polypectomy Vascular claudication (04/01/13) Legs Vitamin B 12 deficiency H/O Vitamin D deficiency H/O Surgical History H/O cardiac catheterization (~11/15/19) And coronary angiography by Dr. Jarrod Griffin History of carotid endarterectomy 02/2015 History of intravascular stent placement 11/2010 Multi-RCA 03/2006 and right iliac stent. Also [place] x 2 RCA + PRO/RCA 11/2010 RE do bilateral legs 12/2014- Dr Jon Hx of angioplasty Hx of cardiac catheterization 12/21/2010 and PCI Hx of cataract surgery 12/2005 Hx of colonoscopy 08/30/07-AP, HP. 12/16/14-TA & HP-5 year follow up. Hx of coronary angioplasty Hx of esophagogastroduodenoscopy (12/17/14) 12/17/14-erosive esophagitis and stricture. 03/16/17-gastric polypectomy and erosive gastritis. 03/17/17-GI bleed post polypectomy Hx of foot surgery Ankle brachial indices Hx of knee surgery recorded 04/02/87 and 11/01--Right 10/31/12 had hardware removed from right knee Hx of plastic surgery 1960's nose Hx of thumb surgery Hx of tonsillectomy recorded 04/02/87 Hx of total knee arthroplasty 2011, 12/2008 Right knee x's 3 2007 Family History mother Malignant neoplasm, Onset Age: 72 father Cerebrovascular accident (CVA), Onset Age: 49 Social History household members: alone housing: house lives independently: Yes marital status: education level: high school occupational status: retired smoking status: Former smoker alcohol intake frequency: a few times a month substance use type: does not use MEDS/ALLERGIES Home Medications and Allergies Home Medications Medication Instructions Recorded Confirmed Type aspirin 81 mg tablet,delayed 81 mg PO QDAY 10/06/15 11/11/21 History release calcium 1000/magnesium 500 1 tab PO QDAY 02/05/19 11/11/21 History cholecalciferol (vitamin D3) 125 125 mcg PO QDAY 02/21/20 11/11/21 History mcg (5,000 unit) tablet albuterol sulfate 2.5 mg (3 mL) INHALATION Q6H PRN 04/16/20 11/11/21 Rx #1080 ml magnesium oxide 400 mg PO QDAY #90 cap 02/18/21 11/11/21 Rx atorvastatin 40 mg tablet 40 mg PO QHS #90 tab 02/25/21 11/11/21 Rx carvedilol 25 mg tablet 25 mg PO BID #180 tab 02/25/21 11/11/21 Rx levothyroxine 25 mcg tablet 25 mcg PO QDAY #90 tab 02/25/21 11/11/21 Rx pantoprazole 40 mg tablet,delayed 40 mg PO QDAY #90 tab 02/25/21 11/11/21 Rx release sodium bicarbonate 650 mg tablet 650 mg PO BID #180 tab 05/06/21 11/11/21 Rx amlodipine 5 mg tablet 10 mg PO QDAY tab 08/10/21 11/11/21 History isosorbide mononitrate 60 mg 60 mg PO QDAY tab 08/10/21 11/11/21 History tablet,extended release 24 hr losartan 50 mg tablet 50 mg PO BID tab 08/10/21 11/11/21 History hydrochlorothiazide 25 mg tablet 25 mg PO QAM #90 tab 08/27/21 11/11/21 Rx hydrocodone 5 mg-acetaminophen 325 1 tab PO Q6H PRN #12 tab 10/26/21 11/11/21 Rx mg tablet bismuth subsalicylate 262 mg/15 mL 524 mg PO Q30-60M PRN 10/27/21 11/11/21 History oral suspension (Pepto-Bismol) fluticasone fur. 200 mcg-umeclid 1 inh INHALATION QDAY 11/11/21 11/11/21 History 62.5 mcg-vilant 25 mcg inhalat.powder (Trelegy Ellipta) Allergies Allergy/AdvReac Type Severity Reaction Status Date / Time levofloxacin [From [facility]] AdvReac Mild Hypotension Verified 11/11/21 12:59 EXAM Constitutional Vitals: Temp Pulse Resp BP Pulse Ox 98.6 F 58 L 18 120/58 98 11/11/21 12:58 11/11/21 17:16 11/11/21 17:16 11/11/21 17:16 11/11/21 17:16 Exam: General: Alert, Awake, No acute Distress Eyes/N/T: EOMI, PERRL, Head/Neck: neck supple, normocephalic atraumatic, JVD CV: RRR, No murmurs, normal s1/s2 Pulm: b/l rales/rhonchi/wheezing Abd: soft, nontender, +BS x4 Ext: no clubbing/cyanosis, 1-2+ RLE edema, left no edema Neuro: Alert, no focal deficits, moves all extremities, CN 2-12 grossly intact, symmetrical strength b/l upper/lower, sensations intact b/l upper/lower Skin: warm/dry DATA Data Completed and Pending Labs: Labs from last 24 hours 11/11/21 11/11/21 11/11/21 16:19 13:12 13:11 WBC RBC Hgb Hct MCV MCH MCHC RDW Plt Count MPV Neut % (Auto) Lymph % (Auto) [place] % (Auto) Eos % (Auto) Baso % (Auto) Lymph # (Auto) [place] # (Auto) Eos # (Auto) Baso # (Auto) Absolute Neutrophils Sodium 142 Potassium 4.3 Chloride 106 Carbon Dioxide 23 Anion Gap 13.0 BUN 30 H Creatinine 1.0 GFR Calculation 71 Glucose 96 Calcium 8.7 Total Bilirubin 1.0 AST 25 ALT 42 H Alkaline Phosphatase 71 Troponin T 0.11 H* 0.12 H* NT-Pro-B Natriuret Pep 5402.0 H Total Protein 6.0 Albumin 3.6 Globulin 2.4 Albumin/Globulin Ratio 1.5 11/11/21 13:11 WBC 7.6 RBC 2.92 L Hgb 8.5 L Hct 27.8 L MCV 95.2 MCH 29.1 MCHC 30.6 L RDW 19.3 H Plt Count 102 L MPV 11.5 H Neut % (Auto) 68.9 Lymph % (Auto) 7.9 L [place] % (Auto) 22.7 H Eos % (Auto) 0.4 Baso % (Auto) 0.1 Lymph # (Auto) 0.60 L [place] # (Auto) 1.73 H Eos # (Auto) 0.03 Baso # (Auto) 0.01 Absolute Neutrophils 5.24 Sodium Potassium Chloride Carbon Dioxide Anion Gap BUN Creatinine GFR Calculation Glucose Calcium Total Bilirubin AST ALT Alkaline Phosphatase Troponin T NT-Pro-B Natriuret Pep Total Protein Albumin Globulin Albumin/Globulin Ratio A/P Narrative A/P Narrative: A: *Acute on chronic diastolic CHF: *Acute hypoxic respiratory failure: -on 2L NC *COPD (on 2L@night): *CAD/PVD: on asa/statin *elevated troponin: f/u lab no change. 2/2 demand ischemia in underlying CKD and chronic elevation -no chest pain or EKG changes *CKD III: *Anemia, chronic *Polymyalgia rheumatica: On prednisone *HTN/HLD: *GERD: *Hypothyroidism: P: -IV lasix, monitor UOP -echo -Supplemental O2 wean -IS/Acapella, prn nebs -cont home prednisone -cont home asa/statin/imdur -cont home norvasc(reduce dose d/t edema & monitor BP)/coreg/ARB, will likely switch hctz to lasix -PT/OT -ppx: Lovenox/home PPI DNR Time Spent With Patient Time: Total time spent is greater than 50% in coordination of care (as documented) at patient's floor/unit and/or counseling patient:
[2021-11-11] MEDS ORDERED: POTASSIUM CHLORIDE 40 MEQ in DEXTROSE 5% IN WATER 500 ML IV PRN (19:49)
[2021-11-11] MEDS ORDERED: POLYETHYLENE GLYCOL 3350 17 GM PACKET PO PRN (19:49)
[2021-11-11] MEDS ORDERED: POTASSIUM CHLORIDE 20 MEQ TABLET PO PRN ×2 (19:49)
[2021-11-11] MEDS ORDERED: ONDANSETRON 4 MG/2 ML VIAL IV PRN (19:49)
[2021-11-11] MEDS ORDERED: SENNOSIDES 1 TABLET PO PRN (19:49)
[2021-11-11] MEDS ORDERED: BISMUTH SUBSALICYLATE 15 ML ORAL.SUSP PO PRN ×2 (19:49→20:45)
[2021-11-11] MEDS ORDERED: HYDROcodone/APAP (PP) 5/325MG TABLET (#4) PO PRN (19:49)
[2021-11-11] MEDS ORDERED: FUROSEMIDE 20 MG/2 ML VIAL IV ONE (20:00)
[2021-11-11] MEDS ORDERED: HYDROcodone/APAP 5/325MG TABLET PO PRN (20:30)
[2021-11-11] MEDS: DOCUSATE SODIUM 100 MG CAPSULE PO SCH (21:51)
[2021-11-11] MEDS: 0.9 % SODIUM CHLORIDE 10 ML SYRINGE IV SCH (21:51)
[2021-11-11] MEDS: LOSARTAN 50 MG TABLET PO SCH (21:51)
[2021-11-11] MEDS: SODIUM BICARBONATE 650 MG TABLET PO SCH (21:51)
[2021-11-11] MEDS: ATORVASTATIN 40 MG TABLET PO SCH (21:51)
[2021-11-11] MEDS: IPRATROPIUM/ALBUTEROL 3 ML AMPUL.NEB NEB PRN (22:21)
[2021-11-12] MEDS: IPRATROPIUM/ALBUTEROL 3 ML AMPUL.NEB NEB PRN ×4 (04:24→20:30)
[2021-11-12] MEDS: 0.9 % SODIUM CHLORIDE 10 ML SYRINGE IV SCH ×5 (05:45→21:06)
[2021-11-12 06:18] LABS: Basophils # (Auto) 0 K/mcL (0.00-0.30); Basophils % (Auto) 0 % (0.0-2.0); Eosinophils # (Auto) 0 K/mcL (0.00-0.70); Eosinophils % (Auto) 0 % (0.0-7.0); Hematocrit 25.8 % (40.1-51.0); Hemoglobin 8.1 g/dL (13.7-17.5); Lymphocytes # (Auto) 0.57 K/mcL (1.50-4.80); Lymphocytes % (Auto) 12.6 % (15.5-49.0); Mean Cell Volume 93.5 fL (80.0-100.0); Mean Corpuscular HGB Conc 31.4 g/dL (31.0-36.0); Mean Platelet Volume 11.7 fL (7.4-10.4); Monocytes # (Auto) 1.11 K/mcL (0.10-0.90); Monocytes % (Auto) 24.6 % (1.0-12.0); Neutrophils % (Auto) 62.8 % (38.0-78.0); Platelet Count 79 K/mcL (140-440); RBC 2.76 M/mcL (4.63-6.08); Red Cell Distribution Width 19.1 % (11.5-14.5); WBC 4.5 K/mcL (4.5-11.0)
[2021-11-12 06:41] LABS: ALT/SGPT 33 U/L (<40); AST/SGOT 21 U/L (<40); Albumin 3.2 gm/dL (3.2-5.2); Albumin/Globulin Ratio 1.3 (1.0-2.3); Alkaline Phosphatase 64 U/L (39-117); Bilirubin,Direct 0.3 mg/dL (<0.3); Bilirubin,Total 1.1 mg/dL (0.1-1.0); Blood Urea Nitrogen 32 mg/dL (8-23); Calcium 8.9 mg/dL (8.6-10.4); Carbon Dioxide 27 mmol/L (22-30); Chloride 105 mmol/L (96-108); Globulin 2.5 gm/dL (2.2-3.7); Glomerular Filtration Rate 71; Glucose 77 mg/dL (70-105); Lactate Dehydrogenase 270 U/L (135-225); Phosphorous 4.2 mg/dL (2.5-4.5); Triglycerides 78 mg/dL (<150); Uric Acid 8.8 mg/dL (2.5-8.0)
[2021-11-12] MEDS: FUROSEMIDE 40 MG/4 ML VIAL IV SCH ×2 (07:38→16:17)
[2021-11-12] MEDS: PANTOPRAZOLE 40 MG TABLET PO SCH (07:38)
[2021-11-12] MEDS: LEVOTHYROXINE 25 MCG TABLET PO SCH (07:38)
--- NOTE | 2021-11-12 07:49 | Internal Med Progress Note ---
SUBJECTIVE Subjective Patient information: Note initiated : 11/12/21 at 7:43 am Service Date, if different from initiated Date: [] Patient: Kike Ramirez 81 y/o M admitted on 11/11/21 for shortness of breath, thoracentesis. Chief Complaint: [] Interval history: History of present illness: 81yoM Presents the ED with shortness of breath the past several days. He did receive a thoracentesis 2 days ago where liter of transudate of appearing fluid was removed. He was mildly hypoxic in the ED. On work-up he had chest x-ray which showed pulmonary edema and patient was given 40 of Lasix. Did have history of CAD and he had a elevated troponin with a repeat 3 hours later which was the same. Patient does have a history of chronic kidney disease. No chest pain or EKG changes per ED. This is likely demand ischemia from heart failure. Patient states he is more short of breath and lays on his back. Has a mild nonproductive cough Patient was here in in mid September for pneumonia versus aspiration pneumonia. He was given 40 of Lasix in the ED and put out 800 cc by the time I saw him.. 11/12 Patient has cough, feels like he is breathing better today. Just turned him down to 2 L. Good urine output overnight. Patient states he is feeling better today. Review of Systems: denies headache/fever/chills/nausea/vomiting/chest or abdominal pain/diarrhea. Otherwise see above. Constitutional Vitals: Vital Signs Temp Pulse Resp BP Pulse Ox 97.6 F 58 L 19 137/64 96 11/12/21 04:01 11/12/21 07:15 11/12/21 07:15 11/12/21 06:01 11/12/21 07:15 Period Temp Pulse Resp BP Sys/[place] Pulse Ox Last 24 Hr 97.4 F-98.6 F 55-84 16-29 87-155/58-125 89-100 Intake and Output 11/11/21 11/12/21 11/12/21 21:59 05:59 13:59 Intake Total 50 Output Total 1700 1000 550 Balance -1700 -950 -550 Weight 72.121 kg Intake & Output: Intake & Output 11/11/21 11/12/21 11/12/21 21:59 05:59 13:59 Intake Total 50 Output Total 1700 1000 550 Balance -1700 -950 -550 Weight 72.121 kg Intake: Oral 50 Output: Void Amount 1700 1000 550 Other: Urine Appearance Clear Clear Clear Urine Color Pale Pale Bright Yellow Urine Odor Normal Normal Exam: General: Alert, Awake, No acute Distress Eyes/N/T: EOMI, , Head/Neck: neck supple, CV: RRR, No murmurs, Pulm: right side rhonchi/wheezing, very minimal left side Abd: soft, nontender, +BS x4 Ext: no clubbing/cyanosis, 1-2+ RLE edema, left no edema Neuro: Alert, no focal deficits, moves all extremities, Skin: warm/dry OBJ DATA Labs CBC & Chem 7: 11/12/21 04:56 11/12/21 04:56 Labs: Abnormal Lab Results 11/12/21 11/12/21 11/11/21 04:56 04:56 16:19 RBC 2.76 L Hgb 8.1 L Hct 25.8 L MCHC RDW 19.1 H Plt Count 79 L MPV 11.7 H Lymph % (Auto) 12.6 L [place] % (Auto) 24.6 H Lymph # (Auto) 0.57 L [place] # (Auto) 1.11 H BUN 32 H Uric Acid 8.8 H Total Bilirubin 1.1 H Direct Bilirubin 0.3 H ALT Lactate Dehydrogenase 270 H Troponin T 0.11 H* NT-Pro-B Natriuret Pep Total Protein 5.7 L 11/11/21 11/11/21 11/11/21 13:12 13:11 13:11 RBC 2.92 L Hgb 8.5 L Hct 27.8 L MCHC 30.6 L RDW 19.3 H Plt Count 102 L MPV 11.5 H Lymph % (Auto) 7.9 L [place] % (Auto) 22.7 H Lymph # (Auto) 0.60 L [place] # (Auto) 1.73 H BUN 30 H Uric Acid Total Bilirubin Direct Bilirubin ALT 42 H Lactate Dehydrogenase Troponin T 0.12 H* NT-Pro-B Natriuret Pep 5402.0 H Total Protein Meds: Medications Acetaminophen (Acetaminophen 325 Mg Tablet) 650 mg PO Q6HP PRN; Protocol PRN Reason: Per Pain Protocol/Fever > 101 Hydrocodone Bitart/Acetaminophen (Hydrocodone/Apap 5/325mg Tablet) 1 tab PO Q6HP PRN; Protocol PRN Reason: Per Pain Protocol Albuterol/Ipratropium (Ipratropium/Albuterol 3 Ml Ampul.Neb) 3 ml NEB Q4HP PRN PRN Reason: Shortness Of Breath Last Admin: 11/12/21 04:24 Dose: 3 ml Documented by: Amlodipine Besylate (Amlodipine 5 Mg Tablet) 5 mg PO QDAY COUNT INCLUDES THE [facility] Aspirin (Aspirin 81 Mg Tab.Chew) 81 mg PO DAILY COUNT INCLUDES THE [facility] Atorvastatin Calcium (Atorvastatin 40 Mg Tablet) 40 mg PO QHS COUNT INCLUDES THE [facility] Last Admin: 11/11/21 21:51 Dose: 40 mg Documented by: Bismuth Subsalicylate (Bismuth Subsalicylate 15 Ml Oral.Susp) 30 ml PO Q3HP PRN PRN Reason: Indigestion Carvedilol (Carvedilol 12.5 Mg Tablet) 25 mg PO BIDCC COUNT INCLUDES THE [facility] Docusate Sodium (Docusate Sodium 100 Mg Capsule) 100 mg PO BID COUNT INCLUDES THE [facility] Last Admin: 11/11/21 21:51 Dose: 100 mg Documented by: Enoxaparin Sodium (Enoxaparin 40 Mg/0.4 Ml Syringe) 40 mg SQ DAILY COUNT INCLUDES THE [facility] Furosemide (Furosemide 40 Mg/4 Ml Vial) 40 mg IV BIDD COUNT INCLUDES THE [facility] Last Admin: 11/12/21 07:38 Dose: 40 mg Documented by: Potassium Chloride 40 meq/ (Dextrose) 520 mls @ 130 mls/hr IV UD PRN PRN Reason: Potassium < 3 Magnesium Sulfate (Magnesium Sulfate) 2 gm in 50 mls @ 50 mls/hr IV UD PRN PRN Reason: Magnesium </= 1.6 Isosorbide Mononitrate (Isosorbide Mononitrate 60 Mg Tab.Xl.24h) 60 mg PO QDAY COUNT INCLUDES THE [facility] Levothyroxine Sodium (Levothyroxine 25 Mcg Tablet) 25 mcg PO ACB COUNT INCLUDES THE [facility] Last Admin: 11/12/21 07:38 Dose: 25 mcg Documented by: Losartan Potassium (Losartan 50 Mg Tablet) 50 mg PO BID COUNT INCLUDES THE [facility] Last Admin: 11/11/21 21:51 Dose: 50 mg Documented by: Ondansetron HCl (Ondansetron 4 Mg/2 Ml Vial) 4 mg IV Q4HP PRN PRN Reason: Nausea And Vomiting Pantoprazole Sodium (Pantoprazole 40 Mg Tablet) 40 mg PO ACB COUNT INCLUDES THE [facility] Last Admin: 12/23/21 07:38 Dose: 40 mg Documented by: Fluticasone- Umeclidin-Vilanter [ Trelegy Ellipta] Inhaler 1 dose INH QDAY COUNT INCLUDES THE [facility] Polyethylene Glycol (Polyethylene Glycol 3350 17 Gm Packet) 17 gm PO DAILYP PRN PRN Reason: Constipation Potassium Chloride (Potassium Chloride 20 Meq Tablet) 40 meq PO UD PRN PRN Reason: Potssium is 3-3.5 Potassium Chloride (Potassium Chloride 20 Meq Tablet) 40 meq PO UD PRN PRN Reason: Potassium < 3 Senna (Sennosides 1 Tablet) 2 tab PO DAILYP PRN PRN Reason: Constipation Sodium Bicarbonate (Sodium Bicarbonate 650 Mg Tablet) 650 mg PO BID COUNT INCLUDES THE [facility] Last Admin: 11/11/21 21:51 Dose: 650 mg Documented by: Sodium Chloride (0.9 % Sodium Chloride 10 Ml Syringe) 10 ml IV Q8 COUNT INCLUDES THE [facility] Last Admin: 11/12/21 05:45 Dose: 10 ml Documented by: A/P Narrative A/P Narrative: A: *Acute on chronic diastolic CHF: -good uop, recent thoracentesis of transudative fluid outpt *Acute hypoxic respiratory failure: -on 2-4L NC *COPD (on 2L@night): *thrombocytopenia: *CAD/PVD: on asa/statin *elevated troponin: f/u lab no change. 2/2 demand ischemia in underlying CKD and chronic elevation -no chest pain or EKG changes *CKD III: *Anemia, chronic *Polymyalgia rheumatica: On prednisone *HTN/HLD: *GERD: *Hypothyroidism: P: -IV lasix bid, monitor UOP -echo -f/u cxr this afternoon -Supplemental O2 wean -IS/Acapella, prn nebs -cont home prednisone -cont home asa/statin/imdur -cont home norvasc(reduce dose d/t edema & monitor BP)/coreg/ARB, will likely switch hctz to lasix -PT/OT -ppx: Lovenox/home PPI DNR Time Spent With Patient Time: Total time spent is greater than 50% in coordination of care (as documented) at patient's floor/unit and/or counseling patient: QUALITY VTE Deep Vein Thrombosis/Pulmonary Embolism Present on Admission: No
[2021-11-12] MEDS: CARVEDILOL 12.5 MG TABLET PO SCH ×2 (08:20→17:44)
[2021-11-12] MEDS: ISOSORBIDE MONONITRATE 60 MG TAB.XL.24H PO SCH (08:20)
[2021-11-12] MEDS: amLODIPine 5 MG TABLET PO SCH (08:21)
[2021-11-12] MEDS: ASPIRIN 81 MG TAB.CHEW PO SCH (08:21)
[2021-11-12] MEDS: predniSONE 10 MG TABLET PO SCH (08:21)
[2021-11-12] MEDS: SODIUM BICARBONATE 650 MG TABLET PO SCH ×2 (08:21→21:01)
[2021-11-12] MEDS: LOSARTAN 50 MG TABLET PO SCH ×2 (08:21→21:01)
[2021-11-12] MEDS: Fluticasone-Umeclidin-Vilanter [Trelegy Ellipta] Inhaler INH SCH (08:22)
[2021-11-12] MEDS ORDERED: HYDROCHLOROTHIAZIDE 12.5 MG CAPSULE PO ONE (08:23)
[2021-11-12] MEDS: DOCUSATE SODIUM 100 MG CAPSULE PO SCH ×2 (08:51→20:47)
[2021-11-12] MEDS: ENOXAPARIN 40 MG/0.4 ML SYRINGE SQ SCH (08:52)
[2021-11-12] MEDS: MAGNESIUM SULFATE 2 GM/50 ML BAG IV PRN (08:57)
--- NOTE | 2021-11-12 14:34 | XRay Report ---
HISTORY: Short of breath, follow-up after diuresis FINDINGS: There are alveolar infiltrates in both lungs predominantly involving the lower lobes extending up to left hilum. There is greater consolidation on the left side than right. There has been improvement bilaterally since 11/11/21. There is a stable small to moderate size left-sided pleural effusion and a small subpulmonic right-sided pleural effusion. There may be a small increase in volume of the right-sided effusion and there is been little change in the left side. The heart size is normal and appears smaller today. IMPRESSION: Improving infiltrates in both lungs. This could be a combination of pulmonary edema pneumonia and atelectasis. Stable left-sided pleural effusion and very small right-sided effusion Diminished heart size since yesterday Interpreted and Authenticated by: Afshin García 11/12/21
[2021-11-12] MEDS: ATORVASTATIN 40 MG TABLET PO SCH (21:01)
[2021-11-12] MEDS: ACETAMINOPHEN 325 MG TABLET PO PRN (21:01)
[2021-11-13] MEDS: IPRATROPIUM/ALBUTEROL 3 ML AMPUL.NEB NEB PRN ×5 (02:21→21:40)
[2021-11-13] MEDS: 0.9 % SODIUM CHLORIDE 10 ML SYRINGE IV SCH ×3 (05:34→21:40)
[2021-11-13] MEDS: predniSONE 10 MG TABLET PO SCH (07:49)
[2021-11-13] MEDS: PANTOPRAZOLE 40 MG TABLET PO SCH (07:49)
[2021-11-13] MEDS: LEVOTHYROXINE 25 MCG TABLET PO SCH (07:49)
[2021-11-13] MEDS: ISOSORBIDE MONONITRATE 60 MG TAB.XL.24H PO SCH (07:49)
[2021-11-13] MEDS: amLODIPine 5 MG TABLET PO SCH (07:49)
[2021-11-13] MEDS: SODIUM BICARBONATE 650 MG TABLET PO SCH ×2 (07:49→21:39)
[2021-11-13] MEDS: CARVEDILOL 12.5 MG TABLET PO SCH ×2 (07:49→17:21)
[2021-11-13] MEDS: ASPIRIN 81 MG TAB.CHEW PO SCH (07:49)
[2021-11-13] MEDS: LOSARTAN 50 MG TABLET PO SCH ×2 (07:49→21:39)
[2021-11-13 07:50] LABS: Basophils # (Auto) 0 K/mcL (0.00-0.30); Basophils % (Auto) 0 % (0.0-2.0); Eosinophils # (Auto) 0.01 K/mcL (0.00-0.70); Eosinophils % (Auto) 0.3 % (0.0-7.0); Hematocrit 26.1 % (40.1-51.0); Hemoglobin 8.2 g/dL (13.7-17.5); Lymphocytes # (Auto) 0.62 K/mcL (1.50-4.80); Lymphocytes % (Auto) 16.9 % (15.5-49.0); Mean Cell Volume 93.2 fL (80.0-100.0); Mean Corpuscular HGB Conc 31.4 g/dL (31.0-36.0); Mean Platelet Volume 12.3 fL (7.4-10.4); Monocytes # (Auto) 0.98 K/mcL (0.10-0.90); Monocytes % (Auto) 26.7 % (1.0-12.0); Neutrophils % (Auto) 56.1 % (38.0-78.0); Platelet Count 76 K/mcL (140-440); Red Cell Distribution Width 18.7 % (11.5-14.5); WBC 3.7 K/mcL (4.5-11.0)
[2021-11-13] MEDS: DOCUSATE SODIUM 100 MG CAPSULE PO SCH ×2 (07:50→21:40)
[2021-11-13] MEDS: FUROSEMIDE 40 MG/4 ML VIAL IV SCH (07:50)
[2021-11-13] MEDS: ENOXAPARIN 40 MG/0.4 ML SYRINGE SQ SCH (07:51)
[2021-11-13 07:55] LABS: ALT/SGPT 26 U/L (<40); AST/SGOT 16 U/L (<40); Albumin 3.1 gm/dL (3.2-5.2); Albumin/Globulin Ratio 1.3 (1.0-2.3); Alkaline Phosphatase 58 U/L (39-117); Bilirubin,Total 0.9 mg/dL (0.1-1.0); Blood Urea Nitrogen 38 mg/dL (8-23); Calcium 8.8 mg/dL (8.6-10.4); Carbon Dioxide 26 mmol/L (22-30); Chloride 103 mmol/L (96-108); Globulin 2.4 gm/dL (2.2-3.7); Glomerular Filtration Rate 63; Glucose 74 mg/dL (70-105)
--- NOTE | 2021-11-13 09:01 | Internal Med Progress Note ---
SUBJECTIVE Subjective Patient information: Note initiated : 11/13/21 at 9:00 am Service Date, if different from initiated Date: [] Patient: Kike Ramirez 81 y/o M admitted on 11/11/21 for shortness of breath, thoracentesis. Chief Complaint: [shortness of breath] Interval history: Presents the ED with shortness of breath the past several days. He did receive a thoracentesis 2 days ago where liter of transudate of appearing fluid was removed. He was mildly hypoxic in the ED. On work-up he had chest x-ray which showed pulmonary edema and patient was given 40 of Lasix. Did have history of CAD and he had a elevated troponin with a repeat 3 hours later which was the same. Patient does have a history of chronic kidney disease. No chest pain or EKG changes per ED. This is likely demand ischemia from heart failure. Patient states he is more short of breath and lays on his back. Has a mild nonproductive cough Patient was here in in mid September for pneumonia versus aspiration pneumonia. He was given 40 of Lasix in the ED and put out 800 cc by the time I saw him.. 11/12 Patient has cough, feels like he is breathing better today. Just turned him down to 2 L. Good urine output overnight. Patient states he is feeling better today. 11/13: Afebrile overnight. Still on 2L/min oxygen overnight and this morning. Good di uresis with IV Lasix. c/o same degree of shortness of breath. c/o nonproductive cough. Denies respiratory wheezing. Denies chest pain or chest tightness. Denies fever, chills, or sweating. Constitutional Vitals: Vital Signs Temp Pulse Resp BP Pulse Ox 36.5 C 65 20 138/73 95 11/13/21 08:01 11/13/21 08:01 11/13/21 08:01 11/13/21 08:01 11/13/21 08:01 Period Temp Pulse Resp BP Sys/Bustamante Pulse Ox Last 24 Hr 36.5 C-37.3 C 52-72 14-22 103-138/54-93 89-98 Intake and Output 11/12/21 11/13/21 11/13/21 21:59 05:59 13:59 Intake Total 717 360 Output Total 1025 475 825 Balance -308 -115 -825 Weight 70.398 kg Intake & Output: Intake & Output 11/12/21 11/13/21 11/13/21 21:59 05:59 13:59 Intake Total 717 360 Output Total 1025 027 825 Balance -308 -115 -825 Weight 70.398 kg Intake: Oral 717 360 Output: Void Amount 1025 037 825 Other: Meal Dinner Percent of Meal Consumed 100% Feeding Ability Independent Urine Appearance Clear Clear Clear Urine Color Bright Yellow Bright Yellow Bright Yellow Urine Odor Normal Normal Normal General appearance: average body habitus, cooperative and no acute distress Head Head exam: Present atraumatic and normal inspection Eye Eye exam: Present normal appearance ENT ENT exam: Present mucous membranes moist, normal exam and normal external ear e xam Additional comments: Nasal cannula in place Neck Neck exam: Present normal inspection Respiratory Respiratory exam: Present decreased breath sounds, rhonchi and wheezes Cardiovascular Cardiovascular exam: Present normal rate and rhythm GI/Abdominal GI/Abdominal exam: Present normal bowel sounds Back Exam Back exam: Present normal inspection Neurological Exam Neurological exam: Present alert and oriented X3 Skin Skin exam: Present intact and warm OBJ DATA Labs CBC & Chem 7: 11/13/21 05:40 11/13/21 05:00 Labs: Abnormal Lab Results 11/13/21 11/13/21 11/12/21 05:40 05:00 04:56 WBC 3.7 L RBC 2.80 L Hgb 8.2 L Hct 26.1 L MCHC RDW 18.7 H Plt Count 76 L MPV 12.3 H Lymph % (Auto) Clarke % (Auto) 26.7 H Lymph # (Auto) 0.62 L Clarke # (Auto) 0.98 H BUN 38 H 32 H Uric Acid 8.8 H Total Bilirubin 1.1 H Direct Bilirubin 0.3 H ALT Lactate Dehydrogenase 270 H Troponin T NT-Pro-B Natriuret Pep Total Protein 5.5 L 5.7 L Albumin 3.1 L 11/12/21 11/11/21 11/11/21 04:56 16:19 13:12 WBC RBC 2.76 L Hgb 8.1 L Hct 25.8 L MCHC RDW 19.1 H Plt Count 79 L MPV 11.7 H Lymph % (Auto) 12.6 L Clarke % (Auto) 24.6 H Lymph # (Auto) 0.57 L Clarke # (Auto) 1.11 H BUN Uric Acid Total Bilirubin Direct Bilirubin ALT Lactate Dehydrogenase Troponin T 0.11 H* 0.12 H* NT-Pro-B Natriuret Pep Total Protein Albumin 11/11/21 11/11/21 13:11 13:11 WBC RBC 2.92 L Hgb 8.5 L Hct 27.8 L MCHC 30.6 L RDW 19.3 H Plt Count 102 L MPV 11.5 H Lymph % (Auto) 7.9 L Clarke % (Auto) 22.7 H Lymph # (Auto) 0.60 L Clarke # (Auto) 1.73 H BUN 30 H Uric Acid Total Bilirubin Direct Bilirubin ALT 42 H Lactate Dehydrogenase Troponin T NT-Pro-B Natriuret Pep 5402.0 H Total Protein Albumin Meds: Medications Acetaminophen (Acetaminophen 325 Mg Tablet) 650 mg PO Q6HP PRN; Protocol PRN Reason: Per Pain Protocol/Fever > 101 Last Admin: 11/12/21 21:01 Dose: 650 mg Documented by: Hydrocodone Bitart/Acetaminophen (Hydrocodone/Apap 5/325mg Tablet) 1 tab PO Q6HP PRN; Protocol PRN Reason: Per Pain Protocol Albuterol/Ipratropium (Ipratropium/Albuterol 3 Ml Ampul.Neb) 3 ml NEB Q4HP PRN PRN Reason: Shortness Of Breath Last Admin: 11/13/21 06:39 Dose: 3 ml Documented by: Amlodipine Besylate (Amlodipine 5 Mg Tablet) 5 mg PO QDAY [facility] Last Admin: 11/13/21 07:49 Dose: 5 mg Documented by: Aspirin (Aspirin 81 Mg Tab.Chew) 81 mg PO DAILY [facility] Last Admin: 11/13/21 07:49 Dose: 81 mg Documented by: Atorvastatin Calcium (Atorvastatin 40 Mg Tablet) 40 mg PO QHS [facility] Last Admin: 11/12/21 21:01 Dose: 40 mg Documented by: Bismuth Subsalicylate (Bismuth Subsalicylate 15 Ml Oral.Susp) 30 ml PO Q3HP PRN PRN Reason: Indigestion Carvedilol ([facility] 12.5 Mg Tablet) [facility] Last Admin: 11/13/21 07:49 Dose: 25 mg Documented by: Docusate Sodium (Docusate Sodium 100 Mg Capsule) 100 mg PO BID [facility] Last Admin: 11/13/21 07:50 Dose: Not Given Documented by: Enoxaparin Sodium (Enoxaparin 40 Mg/0.4 Ml Syringe) 40 mg SQ DAILY [facility] Last Admin: 11/13/21 07:51 Dose: 40 mg Documented by: Furosemide (Furosemide 20 Mg Tablet) 40 mg PO BIDD [facility] Potassium Chloride 40 meq/ (Dextrose) 520 mls @ 130 mls/hr IV UD PRN PRN Reason: Potassium < 3 Magnesium Sulfate (Magnesium Sulfate) 2 gm in 50 mls @ 50 mls/hr IV UD PRN PRN Reason: Magnesium </= 1.6 Last Infusion: 11/12/21 10:00 Dose: Infused Documented by: Isosorbide Mononitrate (Isosorbide Mononitrate 60 Mg Tab.Xl.24h) 60 mg PO QDAY [facility] Last Admin: 11/13/21 07:49 Dose: 60 mg Documented by: Levothyroxine Sodium (Levothyroxine 25 Mcg Tablet) 25 mcg PO ACB [facility] Last Admin: 11/13/21 07:49 Dose: 25 mcg Documented by: Lorazepam (Lorazepam 0.5 Mg Tablet) 0.5 mg PO Q8HP PRN PRN Reason: Anxiety Losartan Potassium (Losartan 50 Mg Tablet) 50 mg PO BID [facility] Last Admin: 11/13/21 07:49 Dose: 50 mg Documented by: Ondansetron HCl (Ondansetron 4 Mg/2 Ml Vial) 4 mg IV Q4HP PRN PRN Reason: Nausea And Vomiting Pantoprazole Sodium (Pantoprazole 40 Mg Tablet) 40 mg PO ACB [facility] Last Admin: 11/13/21 07:49 Dose: 40 mg Documented by: Fluticasone- Umeclidin-Vilanter [ Trelegy Ellipta] Inhaler 1 dose INH QDAY [facility] Last Admin: 11/12/21 08:22 Dose: Not Given Documented by: Polyethylene Glycol (Polyethylene Glycol 3350 17 Gm Packet) 17 gm PO DAILYP PRN PRN Reason: Constipation Potassium Chloride (Potassium Chloride 20 Meq Tablet) 40 meq PO UD PRN PRN Reason: Potssium is 3-3.5 Potassium Chloride (Potassium Chloride 20 Meq Tablet) 40 meq PO UD PRN PRN Reason: Potassium < 3 Prednisone (Prednisone 10 Mg Tablet) 10 mg PO QDAY [facility] Last Admin: 11/13/21 07:49 Dose: 10 mg Documented by: Senna (Sennosides 1 Tablet) 2 tab PO DAILYP PRN PRN Reason: Constipation Sodium Bicarbonate (Sodium Bicarbonate 650 Mg Tablet) 650 mg PO BID [facility] Last Admin: 11/13/21 07:49 Dose: 650 mg Documented by: Sodium Chloride (0.9 % Sodium Chloride 10 Ml Syringe) 10 ml IV Q8 [facility] Last Admin: 11/13/21 05:34 Dose: 10 ml Documented by: A/P Assessment and plan (1) Acute exacerbation of CHF (congestive heart failure): Status: Acute (2) COPD (chronic obstructive pulmonary disease) with chronic bronchitis: Status: Chronic Comment: Follows with pulmonology. Albuterol as needed (3) Chronic kidney disease (CKD) stage G3a/A2, moderately decreased glomerular filtration rate (GFR) between 45-59 mL/min/1.73 square meter and albuminuria creatinine ratio between 30-299 mg/g: Status: Chronic (4) Anemia due to stage 3a chronic kidney disease: Status: Chronic (5) Elevated troponin I level: Status: Acute (6) Hypothyroidism (acquired): Status: Chronic Comment: TSH mildly elevated. Educated patient on timing of levothyroxine dose Recheck TSH in 6 weeks (7) Hypertension, essential: Status: Chronic Comment: Moderately well-controlled on amlodipine 5 mg daily, Coreg 25 mg twice daily, hydrochlorothiazide 25 mg daily (increased last visit), and losartan 50 mg nig htly. Encouraged improved compliance with low-sodium diet (8) Hyperlipidemia: Status: Chronic Qualifiers: Hyperlipidemia type: mixed hyperlipidemia Qualified Code(s): E78.2 - Mixed hyperlipidemia (9) Gastroesophageal reflux: Status: Chronic Qualifiers: Esophagitis presence: esophagitis presence not specified Qualified Code(s): K21.9 - Gastro-esophageal reflux disease without esophagitis Narrative A/P Narrative: Assessment and Plans: 1. Diastolic CHF with exacerbation: LVEF 60-65% with diastolic dysfunction Transfer to inpatient med surg Supplemental oxygen therapy, currently on 2L/min, titrate to achieve spo2>=88% given COPD-er. On home oxygen up to 2L/min at night Strict intake and output Daily weight 2L/day fluid restriction Lasix switch from IV to 40mg PO BID Coreg Losartan Aldactone not indicated given LVEF>40% 2. COPD, stable: Supplemental oxygen therapy, currently on 2L/min, titrate to achieve spo2>=88% given COPD-er. On home oxygen up to 2L/min at night Prednisone DuoNEB NEB PRN wheezing or SOB 3. Anemia associated with chronic kidney disease stage 3: Avoid nephrotoxic agents Saline lock with oral diuretics CMP daily to trend kidney functions cbc w/ auto diff in the morning to trend H/H 4. GERD: Continue oral PPI from home regimen 5. Essential HTN: Currently normotensive Coreg Losartan Lasix 40mg PO BID 6. Mixed dyslipidemia: Continue statin therapy 7. Hypothyroidism: Continue oral thyroid replacement therapy 8. Elevated troponin level: f/u lab no change 2/2 demand ischemia in underlying CKD and chronic elevation no chest pain or ECG changes GI ppx: Continue oral PPI from home regimen DVT ppx: Lovenox Code status: DNI DNR Prognosis: Stable Disposition: transfer to inpatient med surg; SNF [place] resident, plan to discharge tomorrow Time Spent With Patient Time: Total time spent is greater than 50% in coordination of care (as documented) at patient's floor/unit and/or counseling patient: Total time spent with greater than 50% in coordination of care (as documented) at patient's floor/unit and/or counseling patient:: Greater than 35 minutes QUALITY VTE Deep Vein Thrombosis/Pulmonary Embolism Present on Admission: No
[2021-11-13] MEDS: Fluticasone-Umeclidin-Vilanter [Trelegy Ellipta] Inhaler INH SCH (10:23)
[2021-11-13] MEDS: FUROSEMIDE 20 MG TABLET PO SCH (16:16)
[2021-11-13] MEDS: ATORVASTATIN 40 MG TABLET PO SCH (21:40)
[2021-11-14] MEDS: ACETAMINOPHEN 325 MG TABLET PO PRN (01:26)
[2021-11-14] MEDS: IPRATROPIUM/ALBUTEROL 3 ML AMPUL.NEB NEB PRN ×4 (01:27→21:11)
[2021-11-14] MEDS: 0.9 % SODIUM CHLORIDE 10 ML SYRINGE IV SCH ×3 (06:05→20:45)
[2021-11-14 07:02] LABS: ALT/SGPT 27 U/L (<40); AST/SGOT 24 U/L (<40); Albumin 3.1 gm/dL (3.2-5.2); Albumin/Globulin Ratio 1.2 (1.0-2.3); Alkaline Phosphatase 59 U/L (39-117); Bilirubin,Total 0.7 mg/dL (0.1-1.0); Blood Urea Nitrogen 49 mg/dL (8-23); Calcium 8.5 mg/dL (8.6-10.4); Carbon Dioxide 25 mmol/L (22-30); Chloride 100 mmol/L (96-108); Globulin 2.5 gm/dL (2.2-3.7); Glomerular Filtration Rate 63; Glucose 74 mg/dL (70-105)
[2021-11-14 07:49] LABS: Basophils # (Auto) 0.01 K/mcL (0.00-0.30); Basophils % (Auto) 0.3 % (0.0-2.0); Eosinophils # (Auto) 0.01 K/mcL (0.00-0.70); Eosinophils % (Auto) 0.3 % (0.0-7.0); Hematocrit 27.2 % (40.1-51.0); Hemoglobin 8.4 g/dL (13.7-17.5); Lymphocytes # (Auto) 0.72 K/mcL (1.50-4.80); Lymphocytes % (Auto) 18.3 % (15.5-49.0); Mean Cell Volume 94.4 fL (80.0-100.0); Mean Corpuscular HGB Conc 30.9 g/dL (31.0-36.0); Mean Platelet Volume 12.8 fL (7.4-10.4); Monocytes # (Auto) 1.13 K/mcL (0.10-0.90); Monocytes % (Auto) 28.8 % (1.0-12.0); Neutrophils % (Auto) 52.3 % (38.0-78.0); Platelet Count 91 K/mcL (140-440); RBC 2.88 M/mcL (4.63-6.08); Red Cell Distribution Width 18.5 % (11.5-14.5); WBC 3.9 K/mcL (4.5-11.0)
[2021-11-14] MEDS: LEVOTHYROXINE 25 MCG TABLET PO SCH (07:52)
[2021-11-14] MEDS: PANTOPRAZOLE 40 MG TABLET PO SCH (07:52)
[2021-11-14] MEDS: FUROSEMIDE 20 MG TABLET PO SCH (08:26)
[2021-11-14] MEDS: CARVEDILOL 12.5 MG TABLET PO SCH ×2 (08:26→16:50)
[2021-11-14] MEDS: DOCUSATE SODIUM 100 MG CAPSULE PO SCH ×2 (09:28→20:45)
[2021-11-14] MEDS: SODIUM BICARBONATE 650 MG TABLET PO SCH ×2 (09:28→20:45)
[2021-11-14] MEDS: ASPIRIN 81 MG TAB.CHEW PO SCH (09:28)
[2021-11-14] MEDS: ENOXAPARIN 40 MG/0.4 ML SYRINGE SQ SCH (09:28)
[2021-11-14] MEDS: ISOSORBIDE MONONITRATE 60 MG TAB.XL.24H PO SCH (09:28)
[2021-11-14] MEDS: LOSARTAN 50 MG TABLET PO SCH ×2 (09:28→20:58)
[2021-11-14] MEDS: amLODIPine 5 MG TABLET PO SCH (09:28)
[2021-11-14] MEDS: predniSONE 10 MG TABLET PO SCH (09:28)
[2021-11-14] MEDS ORDERED: morphine 2 MG/ML VIAL IV ONE (09:38)
[2021-11-14] MEDS: guaiFENesin/DEXTROMETHORPHAN ORAL SOL PO PRN (09:50)
[2021-11-14] MEDS: Fluticasone-Umeclidin-Vilanter [Trelegy Ellipta] Inhaler INH SCH (09:51)
--- NOTE | 2021-11-14 10:18 | Internal Med Progress Note ---
SUBJECTIVE Subjective Patient information: Note initiated : 11/14/21 at 10:14 am Service Date, if different from initiated Date: [] Patient: Kike Ramirez 81 y/o M admitted on 11/11/21 for shortness of breath, thoracentesis. Chief Complaint: [] Interval history: Presents the ED with shortness of breath the past several days. He did receive a thoracentesis 2 days ago where liter of transudate of appearing fluid was removed. He was mildly hypoxic in the ED. On work-up he had chest x-ray which showed pulmonary edema and patient was given 40 of Lasix. Did have history of CAD and he had a elevated troponin with a repeat 3 hours later which was the same. Patient does have a history of chronic kidney disease. No chest pain or EKG changes per ED. This is likely demand ischemia from heart failure. Patient states he is more short of breath and lays on his back. Has a mild nonproductive cough Patient was here in in mid September for pneumonia versus aspiration pneumonia. He was given 40 of Lasix in the ED and put out 800 cc by the time I saw him.. 11/12 Patient has cough, feels like he is breathing better today. Just turned him down to 2 L. Good urine output overnight. Patient states he is feeling better today. 11/13: Afebrile overnight. Still on 2L/min oxygen overnight and this morning. Good diuresis with IV Lasix. c/o same degree of shortness of breath. c/o nonproductive cough. Denies respiratory wheezing. Denies chest pain or chest tightness. Denies fever, chills, or sweating. 11/14: Afebrile overnight. Still on 2L/min oxygen overnight and this morning. c/o worsening shortness of breath. c/o nonproductive cough. Denies respiratory wheezing. Denies chest pain or chest tightness. Denies fever, chills, or sweating. Constitutional Vitals: Vital Signs Temp Pulse Resp BP Pulse Ox 36.8 C 82 12 134/71 95 11/14/21 08:04 11/14/21 08:04 11/14/21 08:04 11/14/21 08:04 11/14/21 08:04 Period Temp Pulse Resp BP Sys/Bustamante Pulse Ox Last 24 Hr 36.8 C-37.4 C 59-82 11-10 91-134/56-78 89-100 Intake and Output 11/13/21 11/14/21 11/14/21 21:59 05:59 13:59 Intake Total 970 240 Output Total 575 925 975 Balance -575 45 -735 Weight 69.082 kg Intake & Output: Intake & Output 11/13/21 11/14/21 11/14/21 21:59 05:59 13:59 Intake Total 970 240 Output Total 575 925 975 Balance -575 45 -735 Weight 69.082 kg Intake: Oral 970 240 Output: Void Amount 575 925 975 Other: Urine Appearance Clear Clear Clear Urine Color Bright Yellow Bright Yellow Bright Yellow Urine Odor Normal Normal General appearance: average body habitus, cooperative and mild distress Head Head exam: Present atraumatic and normal inspection Eye Eye exam: Present normal appearance ENT ENT exam: Present mucous membranes moist, normal exam and normal external ear exam Additional comments: Nasal cannula in place Neck Neck exam: Present normal inspection Respiratory Respiratory exam: Present decreased breath sounds and rhonchi; Absent normal respiratory exam or CTAB Cardiovascular Cardiovascular exam: Present normal rate and rhythm GI/Abdominal GI/Abdominal exam: Present normal bowel sounds Back Exam Back exam: Present normal inspection Neurological Exam Neurological exam: Present alert and oriented X3 Skin Skin exam: Present intact and warm OBJ DATA Labs CBC & Chem 7: 11/14/21 04:38 11/14/21 04:38 Labs: Abnormal Lab Results 11/14/21 11/14/21 11/13/21 04:38 04:38 05:40 WBC 3.9 L 3.7 L RBC 2.88 L 2.80 L Hgb 8.4 L 8.2 L Hct 27.2 L 26.1 L MCHC 30.9 L RDW 18.5 H 18.7 H Plt Count 91 L 76 L MPV 12.8 H 12.3 H Lymph % (Auto) Terry % (Auto) 28.8 H 26.7 H Lymph # (Auto) 0.72 L 0.62 L Terry # (Auto) 1.13 H 0.98 H BUN 49 H Uric Acid Calcium 8.5 L Total Bilirubin Direct Bilirubin ALT Lactate Dehydrogenase Troponin T NT-Pro-B Natriuret Pep Total Protein 5.6 L Albumin 3.1 L 11/13/21 11/12/21 11/12/21 05:00 04:56 04:56 WBC RBC 2.76 L Hgb 8.1 L Hct 25.8 L MCHC RDW 19.1 H Plt Count 79 L MPV 11.7 H Lymph % (Auto) 12.6 L Terry % (Auto) 24.6 H Lymph # (Auto) 0.57 L Terry # (Auto) 1.11 H BUN 38 H 32 H Uric Acid 8.8 H Calcium Total Bilirubin 1.1 H Direct Bilirubin 0.3 H ALT Lactate Dehydrogenase 270 H Troponin T NT-Pro-B Natriuret Pep Total Protein 5.5 L 5.7 L Albumin 3.1 L 11/11/21 11/11/21 11/11/21 16:19 13:12 13:11 WBC RBC Hgb Hct MCHC RDW Plt Count MPV Lymph % (Auto) Terry % (Auto) Lymph # (Auto) Terry # (Auto) BUN 30 H Uric Acid Calcium Total Bilirubin Direct Bilirubin ALT 42 H Lactate Dehydrogenase Troponin T 0.11 H* 0.12 H* NT-Pro-B Natriuret Pep 5402.0 H Total Protein Albumin 11/11/21 13:11 WBC RBC 2.92 L Hgb 8.5 L Hct 27.8 L MCHC 30.6 L RDW 19.3 H Plt Count 102 L MPV 11.5 H Lymph % (Auto) 7.9 L Terry % (Auto) 22.7 H Lymph # (Auto) 0.60 L Terry # (Auto) 1.73 H BUN Uric Acid Calcium Total Bilirubin Direct Bilirubin ALT Lactate Dehydrogenase Troponin T NT-Pro-B Natriuret Pep Total Protein Albumin Meds: Medications Acetaminophen (Acetaminophen 325 Mg Tablet) 650 mg PO Q6HP PRN; Protocol PRN Reason: Per Pain Protocol/Fever > 101 Last Admin: 11/14/21 01:26 Dose: 650 mg Documented by: Hydrocodone Bitart/Acetaminophen (Hydrocodone/Apap 5/325mg Tablet) 1 tab PO Q6HP PRN; Protocol PRN Reason: Per Pain Protocol Albuterol/Ipratropium (Ipratropium/Albuterol 3 Ml Ampul.Neb) 3 ml NEB Q4HP PRN PRN Reason: Shortness Of Breath Last Admin: 11/14/21 07:09 Dose: 3 ml Documented by: Amlodipine Besylate (Amlodipine 5 Mg Tablet) 5 mg PO QDAY [facility] Last Admin: 11/14/21 09:28 Dose: 5 mg Documented by: Aspirin (Aspirin 81 Mg Tab.Chew) 81 mg PO DAILY [facility] Last Admin: 11/14/21 09:28 Dose: 81 mg Documented by: Atorvastatin Calcium (Atorvastatin 40 Mg Tablet) 40 mg PO QHS [facility] Last Admin: 11/13/21 21:40 Dose: 40 mg Documented by: Bismuth Subsalicylate (Bismuth Subsalicylate 15 Ml Oral.Susp) 30 ml PO Q3HP PRN PRN Reason: Indigestion Carvedilol (Carvedilol 12.5 Mg Tablet) 25 mg PO BIDCC [facility] Last Admin: 11/14/21 08:26 Dose: 25 mg Documented by: Docusate Sodium (Docusate Sodium 100 Mg Capsule) 100 mg PO BID [facility] Last Admin: 11/14/21 09:28 Dose: 100 mg Documented by: Enoxaparin Sodium (Enoxaparin 40 Mg/0.4 Ml Syringe) 40 mg SQ DAILY [facility] Last Admin: 11/14/21 09:28 Dose: 40 mg Documented by: Furosemide (Furosemide 20 Mg Tablet) 40 mg PO BIDD [facility] Last Admin: 11/14/21 08:26 Dose: 40 mg Documented by: Guaifenesin (Guaifenesin/Dextromethorphan Oral Angelita) 10 ml PO Q4HP PRN PRN Reason: Cough Last Admin: 11/14/21 09:50 Dose: 10 ml Documented by: Potassium Chloride 40 meq/ (Dextrose) 520 mls @ 130 mls/hr IV UD PRN PRN Reason: Potassium < 3 Magnesium Sulfate (Magnesium Sulfate) 2 gm in 50 mls @ 50 mls/hr IV UD PRN PRN Reason: Magnesium </= 1.6 Last Infusion: 11/12/21 10:00 Dose: Infused Documented by: Isosorbide Mononitrate (Isosorbide Mononitrate 60 Mg Tab.Xl.24h) 60 mg PO QDAY [facility] Last Admin: 11/14/21 09:28 Dose: 60 mg Documented by: Levothyroxine Sodium (Levothyroxine 25 Mcg Tablet) 25 mcg PO ACB [facility] Last Admin: 11/14/21 07:52 Dose: 25 mcg Documented by: Lorazepam (Lorazepam 0.5 Mg Tablet) 0.5 mg PO Q8HP PRN PRN Reason: Anxiety Losartan Potassium (Losartan 50 Mg Tablet) 50 mg PO BID [facility] Last Admin: 11/14/21 09:28 Dose: 50 mg Documented by: Ondansetron HCl (Ondansetron 4 Mg/2 Ml Vial) 4 mg IV Q4HP PRN PRN Reason: Nausea And Vomiting Pantoprazole Sodium (Pantoprazole 40 Mg Tablet) 40 mg PO ACB [facility] Last Admin: 11/14/21 07:52 Dose: 40 mg Documented by: Fluticasone- Umeclidin-Vilanter [ Trelegy Ellipta] Inhaler 1 dose INH QDAY [facility] Last Admin: 11/14/21 09:51 Dose: Not Given Documented by: Polyethylene Glycol (Polyethylene Glycol 3350 17 Gm Packet) 17 gm PO DAILYP PRN PRN Reason: Constipation Potassium Chloride (Potassium Chloride 20 Meq Tablet) 40 meq PO UD PRN PRN Reason: Potssium is 3-3.5 Potassium Chloride (Potassium Chloride 20 Meq Tablet) 40 meq PO UD PRN PRN Reason: Potassium < 3 Prednisone (Prednisone 10 Mg Tablet) 10 mg PO QDAY [facility] Last Admin: 11/14/21 09:28 Dose: 10 mg Documented by: Senna (Sennosides 1 Tablet) 2 tab PO DAILYP PRN PRN Reason: Constipation Sodium Bicarbonate (Sodium Bicarbonate 650 Mg Tablet) 650 mg PO BID [facility] Last Admin: 11/14/21 09:28 Dose: 650 mg Documented by: Sodium Chloride (0.9 % Sodium Chloride 10 Ml Syringe) 10 ml IV Q8 [facility] Last Admin: 11/14/21 06:05 Dose: 10 ml Documented by: A/P Assessment and plan (1) Acute exacerbation of CHF (congestive heart failure): Status: Acute (2) COPD (chronic obstructive pulmonary disease) with chronic bronchitis: Status: Chronic Comment: Follows with pulmonology. Albuterol as needed (3) Chronic kidney disease (CKD) stage G3a/A2, moderately decreased glomerular filtration rate (GFR) between 45-59 mL/min/1.73 square meter and albuminuria creatinine ratio between 30-299 mg/g: Status: Chronic (4) Anemia due to stage 3a chronic kidney disease: Status: Chronic (5) Elevated troponin I level: Status: Acute (6) Hypothyroidism (acquired): Status: Chronic Comment: TSH mildly elevated. Educated patient on timing of levothyroxine dose Recheck TSH in 6 weeks (7) Hypertension, essential: Status: Chronic Comment: Moderately well-controlled on amlodipine 5 mg daily, Coreg 25 mg twice daily, hydrochlorothiazide 25 mg daily (increased last visit), and losartan 50 mg nightly. Encouraged improved compliance with low-sodium diet (8) Hyperlipidemia: Status: Chronic Qualifiers: Hyperlipidemia type: mixed hyperlipidemia Qualified Code(s): E78.2 - Mixed hyperlipidemia (9) Gastroesophageal reflux: Status: Chronic Qualifiers: Esophagitis presence: esophagitis presence not specified Qualified Code(s): K21.9 - Gastro-esophageal reflux disease without esophagitis Narrative A/P Narrative: Assessment and Plans: 1. Diastolic CHF with exacerbation: LVEF 60-65% with diastolic dysfunction Stays in inpatient med surg Supplemental oxygen therapy, currently on 2L/min, titrate to achieve spo2>=88% given COPD-er. On home oxygen up to 2L/min at night Strict intake and output Daily weight 2L/day fluid restriction Lasix 40mg IV BID, switch to PO probably at discharge Coreg Losartan Aldactone not indicated given LVEF>40% Repeat CXR today 2. COPD, stable: Supplemental oxygen therapy, currently on 2L/min, titrate to achieve spo2>=88% given COPD-er. On home oxygen up to 2L/min at night Prednisone DuoNEB NEB PRN wheezing or SOB 3. Anemia associated with chronic kidney disease stage 3: Avoid nephrotoxic agents Saline lock with oral diuretics CMP daily to trend kidney functions cbc w/ auto diff in the morning to trend H/H 4. GERD: Continue oral PPI from home regimen 5. Essential HTN: Currently normotensive Coreg Losartan Lasix 40mg IV BID, switch to PO probably at discharge 6. Mixed dyslipidemia: Continue statin therapy 7. Hypothyroidism: Continue oral thyroid replacement therapy 8. Elevated troponin level: f/u lab no change 2/2 demand ischemia in underlying CKD and chronic elevation no chest pain or ECG changes GI ppx: Continue oral PPI from home regimen DVT ppx: Lovenox Code status: DNI DNR Prognosis: Stable Disposition: Stays in inpatient med surg; SNF [place] resident, plan to discharge likely on Tuesday Time Spent With Patient Time: Total time spent is greater than 50% in coordination of care (as documented) at patient's floor/unit and/or counseling patient: Total time spent with greater than 50% in coordination of care (as documented) at patient's floor/unit and/or counseling patient:: Greater than 35 minutes QUALITY VTE Deep Vein Thrombosis/Pulmonary Embolism Present on Admission: No
[2021-11-14] MEDS: FUROSEMIDE 40 MG/4 ML VIAL IV SCH ×2 (13:01→14:51)
[2021-11-14] MEDS: LORazepam 0.5 MG TABLET PO PRN ×2 (13:01→20:45)
--- NOTE | 2021-11-14 14:40 | XRay Report ---
HISTORY: Shortness breath, follow-up pulmonary infiltrates FINDINGS: There are alveolar infiltrates in both lungs, predominantly involving the lower lobes. Greatest consolidation is in the left lower lobe. Superimposed upon this is a small left-sided pleural effusion. The infiltrates and pleural effusions have improved since 11/12/21. The heart size is normal. IMPRESSION: Progressive improvement of bilateral infiltrates and small pleural effusions Interpreted and Authenticated by: Afshin García 11/14/21
[2021-11-14] MEDS: ATORVASTATIN 40 MG TABLET PO SCH (20:45)
[2021-11-15] MEDS: IPRATROPIUM/ALBUTEROL 3 ML AMPUL.NEB NEB PRN ×3 (01:50→21:20)
[2021-11-15] MEDS: 0.9 % SODIUM CHLORIDE 10 ML SYRINGE IV SCH ×3 (05:33→21:16)
[2021-11-15] MEDS: LEVOTHYROXINE 25 MCG TABLET PO SCH (06:46)
[2021-11-15 07:20] LABS: Basophils # (Auto) 0.01 K/mcL (0.00-0.30); Basophils % (Auto) 0.3 % (0.0-2.0); Eosinophils # (Auto) 0.01 K/mcL (0.00-0.70); Eosinophils % (Auto) 0.3 % (0.0-7.0); Hematocrit 30.7 % (40.1-51.0); Hemoglobin 9.8 g/dL (13.7-17.5); Lymphocytes # (Auto) 0.98 K/mcL (1.50-4.80); Lymphocytes % (Auto) 26.1 % (15.5-49.0); Mean Cell Volume 91.9 fL (80.0-100.0); Mean Corpuscular HGB Conc 31.9 g/dL (31.0-36.0); Mean Platelet Volume 12.5 fL (7.4-10.4); Monocytes # (Auto) 1.17 K/mcL (0.10-0.90); Monocytes % (Auto) 31.1 % (1.0-12.0); Neutrophils % (Auto) 42.2 % (38.0-78.0); Platelet Count 81 K/mcL (140-440); RBC 3.34 M/mcL (4.63-6.08); Red Cell Distribution Width 18.1 % (11.5-14.5); WBC 3.8 K/mcL (4.5-11.0)
[2021-11-15 07:26] LABS: ALT/SGPT 26 U/L (<40); AST/SGOT 23 U/L (<40); Albumin 3.3 gm/dL (3.2-5.2); Albumin/Globulin Ratio 1.1 (1.0-2.3); Alkaline Phosphatase 64 U/L (39-117); Bilirubin,Total 0.9 mg/dL (0.1-1.0); Blood Urea Nitrogen 49 mg/dL (8-23); Calcium 8.5 mg/dL (8.6-10.4); Carbon Dioxide 26 mmol/L (22-30); Chloride 100 mmol/L (96-108); Globulin 2.9 gm/dL (2.2-3.7); Glomerular Filtration Rate 71; Glucose 73 mg/dL (70-105)
[2021-11-15] MEDS: LORazepam 0.5 MG TABLET PO PRN ×2 (07:41→21:24)
[2021-11-15] MEDS: FUROSEMIDE 40 MG/4 ML VIAL IV SCH ×2 (07:41→15:32)
[2021-11-15] MEDS: CARVEDILOL 12.5 MG TABLET PO SCH ×2 (07:41→16:44)
[2021-11-15] MEDS: ENOXAPARIN 40 MG/0.4 ML SYRINGE SQ SCH (08:16)
[2021-11-15] MEDS: amLODIPine 5 MG TABLET PO SCH (08:17)
[2021-11-15] MEDS: SODIUM BICARBONATE 650 MG TABLET PO SCH ×2 (08:17→21:16)
[2021-11-15] MEDS: DOCUSATE SODIUM 100 MG CAPSULE PO SCH ×2 (08:17→21:16)
[2021-11-15] MEDS: predniSONE 10 MG TABLET PO SCH (08:17)
[2021-11-15] MEDS: LOSARTAN 50 MG TABLET PO SCH ×2 (08:17→21:15)
[2021-11-15] MEDS: PANTOPRAZOLE 40 MG TABLET PO SCH (08:17)
[2021-11-15] MEDS: ASPIRIN 81 MG TAB.CHEW PO SCH (08:17)
[2021-11-15] MEDS: ISOSORBIDE MONONITRATE 60 MG TAB.XL.24H PO SCH (08:17)
[2021-11-15] MEDS: Fluticasone-Umeclidin-Vilanter [Trelegy Ellipta] Inhaler INH SCH (08:25)
--- NOTE | 2021-11-15 14:26 | Internal Med Progress Note ---
SUBJECTIVE Subjective Patient information: Note initiated : 11/15/21 at 2:24 pm Service Date, if different from initiated Date: [] Patient: Kike Ramirez 81 y/o M admitted on 11/11/21 for shortness of breath, thoracentesis. Chief Complaint: [] Interval history: Presents the ED with shortness of breath the past several days. He did receive a thoracentesis 2 days ago where liter of transudate of appearing fluid was removed. He was mildly hypoxic in the ED. On work-up he had chest x-ray which showed pulmonary edema and patient was given 40 of Lasix. Did have history of CAD and he had a elevated troponin with a repeat 3 hours later which was the same. Patient does have a history of chronic kidney disease. No chest pain or EKG changes per ED. This is likely demand ischemia from heart failure. Patient states he is more short of breath and lays on his back. Has a mild nonproductive cough Patient was here in in mid September for pneumonia versus aspiration pneumonia. He was given 40 of Lasix in the ED and put out 800 cc by the time I saw him.. 11/12 Patient has cough, feels like he is breathing better today. Just turned him down to 2 L. Good urine output overnight. Patient states he is feeling better today. 11/13: Afebrile overnight. Still on 2L/min oxygen overnight and this morning. Good diuresis with IV Lasix. c/o same degree of shortness of breath. c/o nonproductive cough. Denies respiratory wheezing. Denies chest pain or chest tightness. Denies fever, chills, or sweating. 11/14: Afebrile overnight. Still on 2L/min oxygen overnight and this morning. c/o worsening shortness of breath. c/o nonproductive cough. Denies respiratory wheezing. Denies chest pain or chest tightness. Denies fever, chills, or sweating. 11/15: Low grade fever Tmax 37.5. Still on 2L/min oxygen overnight and this morning. Improving degree of shortness of breath. c/o nonproductive cough. Denies respiratory wheezing. Denies chest pain or chest tightness. Denies fever, chills, or sweating. Constitutional Vitals: Vital Signs Temp Pulse Resp BP Pulse Ox 36.9 C 73 28 H 109/66 96 11/15/21 12:00 11/15/21 12:00 11/15/21 07:49 11/15/21 12:00 11/15/21 12:00 Period Temp Pulse Resp BP Sys/Bust[place]ante Pulse Ox Last 24 Hr 36.5 C-37.5 C 68-88 18-28 109-143/66-84 87-96 Intake and Output 11/15/21 11/15/21 11/15/21 05:59 13:59 21:59 Intake Total 350 240 Output Total 650 600 Balance -300 -360 Intake & Output: Intake & Output 11/15/21 11/15/21 11/15/21 05:59 13:59 21:59 Intake Total 350 240 Output Total 650 600 Balance -300 -360 Intake: Oral 350 240 Output: Void Amount 650 600 Other: Meal Lunch Percent of Meal Consumed 75% Urine Appearance Clear Clear Urine Color Bright Yellow Bright Yellow # Bowel Movements 0 General appearance: average body habitus, cooperative and no acute distress Exam: lethargic Head Head exam: Present atraumatic and normal inspection Eye Eye exam: Present normal appearance ENT ENT exam: Present mucous membranes moist, normal exam and normal external ear exam Additional comments: Nasal cannula in place Neck Neck exam: Present normal inspection Respiratory Respiratory exam: Present decreased breath sounds and rhonchi Cardiovascular Cardiovascular exam: Present normal rate and rhythm GI/Abdominal GI/Abdominal exam: Present normal bowel sounds Extremities Exam Extremities exam: Present pedal edema Back Exam Back exam: Present normal inspection Neurological Exam Neurological exam: Present alert and oriented X3 Skin Skin exam: Present intact and warm OBJ DATA Labs CBC & Chem 7: 11/15/21 06:09 11/15/21 06:09 Labs: Abnormal Lab Results 11/15/21 11/15/21 11/14/21 06:09 06:09 04:38 WBC 3.8 L RBC 3.34 L Hgb 9.8 L Hct 30.7 L MCHC RDW 18.1 H Plt Count 81 L MPV 12.5 H [place] % (Auto) 31.1 H Lymph # (Auto) 0.98 L [place] # (Auto) 1.17 H Absolute Neutrophils 1.59 L BUN 49 H 49 H Calcium 8.5 L 8.5 L Total Protein 5.6 L Albumin 3.1 L 11/14/21 11/13/21 11/13/21 04:38 05:40 05:00 WBC 3.9 L 3.7 L RBC 2.88 L 2.80 L Hgb 8.4 L 8.2 L Hct 27.2 L 26.1 L MCHC 30.9 L RDW 18.5 H 18.7 H Plt Count 91 L 76 L MPV 12.8 H 12.3 H [place] % (Auto) 28.8 H 26.7 H Lymph # (Auto) 0.72 L 0.62 L [place] # (Auto) 1.13 H 0.98 H Absolute Neutrophils BUN 38 H Calcium Total Protein 5.5 L Albumin 3.1 L Meds: Medications Acetaminophen (Acetaminophen 325 Mg Tablet) 650 mg PO Q6HP PRN; Protocol PRN Reason: Per Pain Protocol/Fever > 101 Last Admin: 11/14/21 01:26 Dose: 650 mg Documented by: Hydrocodone Bitart/Acetaminophen (Hydrocodone/Apap 5/325mg Tablet) 1 tab PO Q6H P PRN; Protocol PRN Reason: Per Pain Protocol Albuterol/Ipratropium (Ipratropium/Albuterol 3 Ml Ampul.Neb) 3 ml NEB Q4HP PRN PRN Reason: Shortness Of Breath Last Admin: 11/15/21 07:49 Dose: 3 ml Documented by: Amlodipine Besylate (Amlodipine 5 Mg Tablet) 5 mg PO QDAY [facility] Last Admin: 11/15/21 08:17 Dose: 5 mg Documented by: Aspirin (Aspirin 81 Mg Tab.Chew) 81 mg PO DAILY [facility] Last Admin: 11/15/21 08:17 Dose: 81 mg Documented by: Atorvastatin Calcium (Atorvastatin 40 Mg Tablet) 40 mg PO QHS [facility] Last Admin: 11/14/21 20:45 Dose: 40 mg Documented by: Bismuth Subsalicylate (Bismuth Subsalicylate 15 Ml Oral.Susp) 30 ml PO Q3HP PRN PRN Reason: Indigestion Carvedilol (Carvedilol 12.5 Mg Tablet) 25 mg PO BIDCC [facility], [facility] Last Admin: 11/15/21 07:41 Dose: 25 mg Documented by: Docusate Sodium (Docusate Sodium 100 Mg Capsule) 100 mg PO BID [facility] Last Admin: 11/15/21 08:17 Dose: 100 mg Documented by: Enoxaparin Sodium (Enoxaparin 40 Mg/0.4 Ml Syringe) 40 mg SQ DAILY [facility], [facility] Last Admin: 11/15/21 08:16 Dose: 40 mg Documented by: Furosemide (Furosemide 40 Mg/4 Ml Vial) 40 mg IV BIDD [facility] Last Admin: 11/15/21 07:41 Dose: 40 mg Documented by: Guaifenesin (Guaifenesin/Dextromethorphan Oral Angelita) 10 ml PO Q4HP PRN PRN Reason: Cough Last Admin: 11/14/21 09:50 Dose: 10 ml Documented by: Potassium Chloride 40 meq/ (Dextrose) 520 mls @ 130 mls/hr IV UD PRN PRN Reason: Potassium < 3 Magnesium Sulfate (Magnesium Sulfate) 2 gm in 50 mls @ 50 mls/hr IV UD PRN PRN Reason: Magnesium </= 1.6 Last Infusion: 11/12/21 10:00 Dose: Infused Documented by: Isosorbide Mononitrate (Isosorbide Mononitrate 60 Mg Tab.Xl.24h) 60 mg PO QDAY [facility] Last Admin: 11/15/21 08:17 Dose: 60 mg Documented by: Levothyroxine Sodium (Levothyroxine 25 Mcg Tablet) 25 mcg PO ACB [facility] Last Admin: 11/15/21 06:46 Dose: 25 mcg Documented by: Lorazepam (Lorazepam 0.5 Mg Tablet) 0.5 mg PO Q8HP PRN PRN Reason: Anxiety Last Admin: 11/15/21 07:41 Dose: 0.5 mg Documented by: Losartan Potassium (Losartan 50 Mg Tablet) 50 mg PO BID [facility] Last Admin: 11/15/21 08:17 Dose: 50 mg Documented by: Ondansetron HCl (Ondansetron 4 Mg/2 Ml Vial) 4 mg IV Q4HP PRN PRN Reason: Nausea And Vomiting Pantoprazole Sodium (Pantoprazole 40 Mg Tablet) 40 mg PO ACB [facility] Last Admin: 11/15/21 08:17 Dose: 40 mg Documented by: Fluticasone- Umeclidin-Vilanter [ Trelegy Ellipta] Inhaler 1 dose INH QDAY [facility] Last Admin: 11/15/21 08:25 Dose: Not Given Documented by: Polyethylene Glycol (Polyethylene Glycol 3350 17 Gm Packet) 17 gm PO DAILYP PRN PRN Reason: Constipation Potassium Chloride (Potassium Chloride 20 Meq Tablet) 40 meq PO UD PRN PRN Reason: Potssium is 3-3.5 Potassium Chloride (Potassium Chloride 20 Meq Tablet) 40 meq PO UD PRN PRN Reason: Potassium < 3 Prednisone (Prednisone 10 Mg Tablet) 10 mg PO QDAY [facility] Last Admin: 11/15/21 08:17 Dose: 10 mg Documented by: Senna (Sennosides 1 Tablet) 2 tab PO DAILYP PRN PRN Reason: Constipation Sodium Bicarbonate (Sodium Bicarbonate 650 Mg Tablet) 650 mg PO BID [facility] Last Admin: 11/15/21 08:17 Dose: 650 mg Documented by: Sodium Chloride (0.9 % Sodium Chloride 10 Ml Syringe) 10 ml IV Q8 [facility] Last Admin: 11/15/21 13:50 Dose: 10 ml Documented by: A/P Assessment and plan (1) Acute exacerbation of CHF (congestive heart failure): Status: Acute (2) COPD (chronic obstructive pulmonary disease) with chronic bronchitis: Status: Chronic Comment: Follows with pulmonology. Albuterol as needed (3) Chronic kidney disease (CKD) stage G3a/A2, moderately decreased glomerular filtration rate (GFR) between 45-59 mL/min/1.73 square meter and albuminuria creatinine ratio between 30-299 mg/g: Status: Chronic (4) Anemia due to stage 3a chronic kidney disease: Status: Chronic (5) Elevated troponin I level: Status: Acute (6) Hypothyroidism (acquired): Status: Chronic Comment: TSH mildly elevated. Educated patient on timing of levothyroxine dose Recheck TSH in 6 weeks (7) Hypertension, essential: Status: Chronic Comment: Moderately well-controlled on amlodipine 5 mg daily, Coreg 25 mg twice daily, hydrochlorothiazide 25 mg daily (increased last visit), and losartan 50 mg nightly. Encouraged improved compliance with low-sodium diet (8) Hyperlipidemia: Status: Chronic Qualifiers: Hyperlipidemia type: mixed hyperlipidemia Qualified Code(s): E78.2 - Mixed hyperlipidemia (9) Gastroesophageal reflux: Status: Chronic Qualifiers: Esophagitis presence: esophagitis presence not specified Qualified Code(s): K21.9 - Gastro-esophageal reflux disease without esophagitis Narrative A/P Narrative: Assessment and Plans: 1. Diastolic CHF with exacerbation: LVEF 60-65% with diastolic dysfunction Stays in inpatient med surg Supplemental oxygen therapy, currently on 2L/min, titrate to achieve spo2>=88% given COPD-er. On home oxygen up to 2L/min at night Strict intake and output Daily weight 2L/day fluid restriction Lasix 40mg IV BID, switch to PO probably at discharge Coreg Losartan Aldactone not indicated given LVEF>40% Repeat CXR today 2. COPD, stable: Supplemental oxygen therapy, currently on 2L/min, titrate to achieve spo2>=88% g iven COPD-er. On home oxygen up to 2L/min at night Prednisone DuoNEB NEB PRN wheezing or SOB 3. Anemia associated with chronic kidney disease stage 3: Avoid nephrotoxic agents Saline lock with oral diuretics CMP daily to trend kidney functions cbc w/ auto diff in the morning to trend H/H 4. GERD: Continue oral PPI from home regimen 5. Essential HTN: Currently normotensive Coreg Losartan Lasix 40mg IV BID, switch to PO probably at discharge 6. Mixed dyslipidemia: Continue statin therapy 7. Hypothyroidism: Continue oral thyroid replacement therapy 8. Elevated troponin level: f/u lab no change 2/2 demand ischemia in underlying CKD and chronic elevation no chest pain or ECG changes GI ppx: Continue oral PPI from home regimen DVT ppx: Lovenox Code status: DNI DNR Prognosis: Stable Disposition: Stays in inpatient med surg; [facility] [place] resident, plan to dischar ge likely on Tuesday Time Spent With Patient Time: Total time spent is greater than 50% in coordination of care (as documented) at patient's floor/unit and/or counseling patient: Total time spent with greater than 50% in coordination of care (as documented) at patient's floor/unit and/or counseling patient:: Greater than 35 minutes QUALITY VTE Deep Vein Thrombosis/Pulmonary Embolism Present on Admission: No
[2021-11-15] MEDS: guaiFENesin/DEXTROMETHORPHAN ORAL SOL PO PRN (15:32)
[2021-11-15] MEDS: ATORVASTATIN 40 MG TABLET PO SCH (21:16)
[2021-11-16] MEDS: IPRATROPIUM/ALBUTEROL 3 ML AMPUL.NEB NEB PRN ×3 (04:54→20:28)
[2021-11-16] MEDS: 0.9 % SODIUM CHLORIDE 10 ML SYRINGE IV SCH ×3 (05:04→20:22)
[2021-11-16] MEDS: LEVOTHYROXINE 25 MCG TABLET PO SCH (06:48)
[2021-11-16] MEDS: PANTOPRAZOLE 40 MG TABLET PO SCH (06:48)
[2021-11-16 07:34] LABS: Basophils # (Auto) 0.01 K/mcL (0.00-0.30); Basophils % (Auto) 0.3 % (0.0-2.0); Eosinophils # (Auto) 0.01 K/mcL (0.00-0.70); Eosinophils % (Auto) 0.3 % (0.0-7.0); Hematocrit 30.8 % (40.1-51.0); Hemoglobin 9.8 g/dL (13.7-17.5); Lymphocytes # (Auto) 1.18 K/mcL (1.50-4.80); Lymphocytes % (Auto) 35.5 % (15.5-49.0); Mean Cell Volume 92.5 fL (80.0-100.0); Mean Corpuscular HGB Conc 31.8 g/dL (31.0-36.0); Mean Platelet Volume 12.2 fL (7.4-10.4); Monocytes # (Auto) 0.89 K/mcL (0.10-0.90); Monocytes % (Auto) 26.8 % (1.0-12.0); Neutrophils % (Auto) 37.1 % (38.0-78.0); Platelet Count 82 K/mcL (140-440); RBC 3.33 M/mcL (4.63-6.08); Red Cell Distribution Width 17.7 % (11.5-14.5)
[2021-11-16 07:53] LABS: ALT/SGPT 20 U/L (<40); AST/SGOT 24 U/L (<40); Albumin 3.1 gm/dL (3.2-5.2); Albumin/Globulin Ratio 1.1 (1.0-2.3); Alkaline Phosphatase 56 U/L (39-117); Bilirubin,Total 0.6 mg/dL (0.1-1.0); Blood Urea Nitrogen 56 mg/dL (8-23); Calcium 7.9 mg/dL (8.6-10.4); Carbon Dioxide 26 mmol/L (22-30); Chloride 97 mmol/L (96-108); Globulin 2.8 gm/dL (2.2-3.7); Glomerular Filtration Rate 52; Glucose 82 mg/dL (70-105)
[2021-11-16] MEDS: CARVEDILOL 12.5 MG TABLET PO SCH ×2 (08:05→17:27)
[2021-11-16] MEDS: FUROSEMIDE 40 MG/4 ML VIAL IV SCH ×2 (08:06→17:27)
[2021-11-16 08:18] LABS: WBC 3.3 K/mcL (4.5-11.0)
[2021-11-16] MEDS: SODIUM BICARBONATE 650 MG TABLET PO SCH ×2 (09:09→20:21)
[2021-11-16] MEDS: predniSONE 10 MG TABLET PO SCH (09:09)
[2021-11-16] MEDS: DOCUSATE SODIUM 100 MG CAPSULE PO SCH ×2 (09:09→20:22)
[2021-11-16] MEDS: Fluticasone-Umeclidin-Vilanter [Trelegy Ellipta] Inhaler INH SCH ×2 (09:10→13:59)
[2021-11-16] MEDS: LOSARTAN 50 MG TABLET PO SCH ×2 (09:10→20:21)
[2021-11-16] MEDS: amLODIPine 5 MG TABLET PO SCH (09:10)
[2021-11-16] MEDS: ENOXAPARIN 40 MG/0.4 ML SYRINGE SQ SCH (09:10)
[2021-11-16] MEDS: ASPIRIN 81 MG TAB.CHEW PO SCH (09:10)
[2021-11-16] MEDS: ISOSORBIDE MONONITRATE 60 MG TAB.XL.24H PO SCH (09:10)
--- NOTE | 2021-11-16 10:59 | EKG ---
[facility] Test Date: 2021-11-12 Pat Name: Kike Ramirez Department: ED Room: Gender: Male Automotive Mechanical Engineer: Zulyneftali Hyatt : 1940 Requested By: Sunny Velázquez Order Number: [id number] Reading MD: Murphy García M.D. Measurements Intervals [place] Rate: 57 P: 34 IN: 163 QRS: 31 QRSD: 87 T: 30 QT: 444 QTc: 433 Interpretive Statements Sinus rhythm Poor R wave progression. No significant change compared to prior ECG. Electronically Signed On 11-16-2021 10:59:44 PST by Murphy García M.D. /[id number]/[email or web address]/[id number]
[2021-11-16] MEDS ORDERED: ALBUTEROL SULFATE 200 PUFF INHALER INH PRN (11:37)
--- NOTE | 2021-11-16 11:41 | Internal Med Progress Note ---
SUBJECTIVE Subjective Patient information: Note initiated : 11/16/21 at 11:38 am Service Date, if different from initiated Date: [] Patient: Kike Ramirez 81 y/o M admitted on 11/11/21 for shortness of breath, thoracentesis. Chief Complaint: [] Interval history: Presents the ED with shortness of breath the past several days. He did receive a thoracentesis 2 days ago where liter of transudate of appearing fluid was removed. He was mildly hypoxic in the ED. On work-up he had chest x-ray which showed pulmonary edema and patient was given 40 of Lasix. Did have history of CAD and he had a elevated troponin with a repeat 3 hours later which was the same. Patient does have a history of chronic kidney disease. No chest pain or EKG changes per ED. This is likely demand ischemia from heart failure. Patient states he is more short of breath and lays on his back. Has a mild nonproductive cough Patient was here in in mid September for pneumonia versus aspiration pneumonia. He was given 40 of Lasix in the ED and put out 800 cc by the time I saw him.. 11/12 Patient has cough, feels like he is breathing better today. Just turned him down to 2 L. Good urine output overnight. Patient states he is feeling better today. 11/13: Afebrile overnight. Still on 2L/min oxygen overnight and this morning. Good diuresis with IV Lasix. c/o same degree of shortness of breath. c/o nonproductive cough. Denies respiratory wheezing. Denies chest pain or chest tightness. Denies fever, chills, or sweating. 11/14: Afebrile overnight. Still on 2L/min oxygen overnight and this morning. c/o worsening shortness of breath. c/o nonproductive cough. Denies respiratory wheezing. Denies chest pain or chest tightness. Denies fever, chills, or sweating. 11/15: Low grade fever Tmax 37.5. Still on 2L/min oxygen overnight and this morning. Improving degree of shortness of breath. c/o nonproductive cough. Denies respiratory wheezing. Denies chest pain or chest tightness. Denies fever, chills, or sweating. 11/16: Afebrile overnight. Still on 2L/min oxygen overnight and this morning. c/o shortness of breath. c/o nonproductive cough. Denies respiratory wheezing. Denies chest pain or chest tightness. Denies fever, chills, or sweating. Constitutional Vitals: Vital Signs Temp Pulse Resp BP Pulse Ox 36.6 C 88 22 142/71 97 11/16/21 07:21 11/16/21 09:16 11/16/21 09:16 11/16/21 07:21 11/16/21 09:16 Period Temp Pulse Resp BP Sys/Bustamante Pulse Ox Last 24 Hr 36.6 C-36.9 C 60-88 - 109-142/66-72 91-98 Intake and Output 11/15/21 11/16/21 11/16/21 21:59 05:59 13:59 Intake Total 240 200 450 Output Total 250 425 Balance -10 -225 450 Weight 68.855 kg Intake & Output: Intake & Output 11/15/21 11/16/21 11/16/21 21:59 05:59 13:59 Intake Total 240 200 450 Output Total 250 425 Balance -10 -225 450 Weight 68.855 kg Intake: Oral 240 200 450 Output: Void Amount 250 425 Other: Meal Breakfast Percent of Meal Consumed 75% Feeding Ability Independent Urine Appearance Clear Urine Color Bright Yellow Urine Odor Normal Stool Size Moderate Stool Color Brown Stool Consistency Soft # Voids 1 # Bowel Movements 1 General appearance: average body habitus, cooperative and no acute distress Exam: lethargic Head Head exam: Present atraumatic and normal inspection Eye Eye exam: Present normal appearance ENT ENT exam: Present mucous membranes moist, normal exam and normal external ear exam Additional comments: Nasal cannula in place Neck Neck exam: Present normal inspection Respiratory Respiratory exam: Present decreased breath sounds, rhonchi and wheezes Cardiovascular Cardiovascular exam: Present normal rate and rhythm GI/Abdominal GI/Abdominal exam: Present normal bowel sounds Extremities Exam Extremities exam: Present pedal edema Back Exam Back exam: Present normal inspection Neurological Exam Neurological exam: Present alert and oriented X3 Skin Skin exam: Present intact and warm OBJ DATA Labs CBC & Chem 7: 11/16/21 05:37 11/16/21 05:36 Labs: Abnormal Lab Results 11/16/21 11/16/21 11/16/21 05:37 05:36 05:36 WBC 3.3 L RBC 3.33 L Hgb 9.8 L Hct 30.8 L MCHC RDW 17.7 H Plt Count 82 L MPV 12.2 H Neut % (Auto) 37.1 L [place] % (Auto) 26.8 H Lymph # (Auto) 1.18 L [place] # (Auto) Absolute Neutrophils 1.23 L BUN 56 H Creatinine 1.3 H Calcium 7.9 L Magnesium 1.5 L Total Protein Albumin 3.1 L 11/15/21 11/15/21 11/14/21 06:09 06:09 04:38 WBC 3.8 L RBC 3.34 L Hgb 9.8 L Hct 30.7 L MCHC RDW 18.1 H Plt Count 81 L MPV 12.5 H Neut % (Auto) [place] % (Auto) 31.1 H Lymph # (Auto) 0.98 L [place] # (Auto) 1.17 H Absolute Neutrophils 1.59 L BUN 49 H 49 H Creatinine Calcium 8.5 L 8.5 L Magnesium Total Protein 5.6 L Albumin 3.1 L 11/14/21 04:38 WBC 3.9 L RBC 2.88 L Hgb 8.4 L Hct 27.2 L MCHC 30.9 L RDW 18.5 H Plt Count 91 L MPV 12.8 H Neut % (Auto) [place] % (Auto) 28.8 H Lymph # (Auto) 0.72 L [place] # (Auto) 1.13 H Absolute Neutrophils BUN Creatinine Calcium Magnesium Total Protein Albumin Meds: Medications Acetaminophen (Acetaminophen 325 Mg Tablet) 650 mg PO Q6HP PRN; Protocol PRN Reason: Per Pain Protocol/Fever > 101 Last Admin: 11/14/21 01:26 Dose: 650 mg Documented by: Hydrocodone Bitart/Acetaminophen (Hydrocodone/Apap 5/325mg Tablet) 1 tab PO Q6HP PRN; Protocol PRN Reason: Per Pain Protocol Albuterol Sulfate (Albuterol Sulfate 200 Puff Inhaler) 2 puff INH Q2H PRN PRN Reason: Shortness Of Breath Albuterol/Ipratropium (Ipratropium/Albuterol 3 Ml Ampul.Neb) 3 ml NEB Q4HP PRN PRN Reason: Shortness Of Breath Last Admin: 11/16/21 09:14 Dose: 3 ml Documented by: Amlodipine Besylate (Amlodipine 5 Mg Tablet) 5 mg PO QDAY KHALIF Last Admin: 11/16/21 09:10 Dose: 5 mg Documented by: Aspirin (Aspirin 81 Mg Tab.Chew) 81 mg PO DAILY [facility] Last Admin: 11/16/21 09:10 Dose: 81 mg Documented by: Atorvastatin Calcium (Atorvastatin 40 Mg Tablet) 40 mg PO QHS [facility] Last Admin: 11/15/21 21:16 Dose: 40 mg Documented by: Bismuth Subsalicylate (Bismuth Subsalicylate 15 Ml Oral.Susp) 30 ml PO Q3HP PRN PRN Reason: Indigestion Carvedilol (Carvedilol 12.5 Mg Tablet) 25 mg PO BIDCC [facility] Last Admin: 11/16/21 08:05 Dose: 25 mg Documented by: Docusate Sodium (Docusate Sodium 100 Mg Capsule) 100 mg PO BID [facility] Last Admin: 11/16/21 09:09 Dose: 100 mg Documented by: Enoxaparin Sodium (Enoxaparin 40 Mg/0.4 Ml Syringe) 40 mg SQ DAILY [facility] Last Admin: 11/16/21 09:10 Dose: 40 mg Documented by: Furosemide (Furosemide 40 Mg/4 Ml Vial) 40 mg IV BIDD [facility] Last Admin: 11/16/21 08:06 Dose: 40 mg Documented by: Guaifenesin (Guaifenesin/Dextromethorphan Oral Angelita) 10 ml PO Q4HP PRN PRN Reason: Cough Last Admin: 11/15/21 15:32 Dose: 10 ml Documented by: Potassium Chloride 40 meq/ (Dextrose) 520 mls @ 130 mls/hr IV UD PRN PRN Reason: Potassium < 3 Magnesium Sulfate (Magnesium Sulfate) 2 gm in 50 mls @ 50 mls/hr IV UD PRN PRN Reason: Magnesium </= 1.6 Last Infusion: 11/12/21 10:00 Dose: Infused Documented by: Isosorbide Mononitrate (Isosorbide Mononitrate 60 Mg Tab.Xl.24h) 60 mg PO QDAY [facility] Last Admin: 11/16/21 09:10 Dose: 60 mg Documented by: Levothyroxine Sodium (Levothyroxine 25 Mcg Tablet) 25 mcg PO ACB [facility] Last Admin: 11/16/21 06:48 Dose: 25 mcg Documented by: Lorazepam (Lorazepam 0.5 Mg Tablet) 0.5 mg PO Q8HP PRN PRN Reason: Anxiety Last Admin: 11/15/21 21:24 Dose: 0.5 mg Documented by: Losartan Potassium (Losartan 50 Mg Tablet) 50 mg PO BID [facility] Last Admin: 11/16/21 09:10 Dose: 50 mg Documented by: Ondansetron HCl (Ondansetron 4 Mg/2 Ml Vial) 4 mg IV Q4HP PRN PRN Reason: Nausea And Vomiting Pantoprazole Sodium (Pantoprazole 40 Mg Tablet) 40 mg PO ACB [facility] Last Admin: 11/16/21 06:48 Dose: 40 mg Documented by: Fluticasone- Umeclidin-Vilanter [ Trelegy Ellipta] Inhaler 1 dose INH QDAY [facility] Last Admin: 11/16/21 09:10 Dose: Not Given Documented by: Polyethylene Glycol (Polyethylene Glycol 3350 17 Gm Packet) 17 gm PO DAILYP PRN PRN Reason: Constipation Potassium Chloride (Potassium Chloride 20 Meq Tablet) 40 meq PO UD PRN PRN Reason: Potssium is 3-3.5 Potassium Chloride (Potassium Chloride 20 Meq Tablet) 40 meq PO UD PRN PRN Reason: Potassium < 3 Prednisone (Prednisone 10 Mg Tablet) 10 mg PO QDAY [facility] Last Admin: 11/16/21 09:09 Dose: 10 mg Documented by: Senna (Sennosides 1 Tablet) 2 tab PO DAILYP PRN PRN Reason: Constipation Sodium Bicarbonate (Sodium Bicarbonate 650 Mg Tablet) 650 mg PO BID [facility] Last Admin: 11/16/21 09:09 Dose: 650 mg Documented by: Sodium Chloride (0.9 % Sodium Chloride 10 Ml Syringe) 10 ml IV Q8 [facility] Last Admin: 11/16/21 05:04 Dose: 10 ml Documented by: A/P Assessment and plan (1) Acute exacerbation of CHF (congestive heart failure): Status: Acute (2) COPD (chronic obstructive pulmonary disease) with chronic bronchitis: Status: Chronic Comment: Follows with pulmonology. Albuterol as needed (3) Chronic kidney disease (CKD) stage G3a/A2, moderately decreased glomerular filtration rate (GFR) between 45-59 mL/min/1.73 square meter and albuminuria creatinine ratio between 30-299 mg/g: Status: Chronic (4) Anemia due to stage 3a chronic kidney disease: Status: Chronic (5) Elevated troponin I level: Status: Acute (6) Hypothyroidism (acquired): Status: Chronic Comment: TSH mildly elevated. Educated patient on timing of levothyroxine dose Recheck TSH in 6 weeks (7) Hypertension, essential: Status: Chronic Comment: Moderately well-controlled on amlodipine 5 mg daily, Coreg 25 mg twice daily, hydrochlorothiazide 25 mg daily (increased last visit), and losartan 50 mg nightly. Encouraged improved compliance with low-sodium diet (8) Hyperlipidemia: Status: Chronic Qualifiers: Hyperlipidemia type: mixed hyperlipidemia Qualified Code(s): E78.2 - Mixed hyperlipidemia (9) Gastroesophageal reflux: Status: Chronic Qualifiers: Esophagitis presence: esophagitis presence not specified Qualified Code(s): K21.9 - Gastro-esophageal reflux disease without esophagitis (10) Hypomagnesemia: Status: Chronic Narrative A/P Narrative: Assessment and Plans: 1. Diastolic CHF with exacerbation: LVEF 60-65% with diastolic dysfunction Stays in inpatient med surg Supplemental oxygen therapy, currently on 2L/min, titrate to achieve spo2>=88% given COPD-er. On home oxygen up to 2L/min at night Strict intake and output Daily weight 2L/day fluid restriction Lasix 40mg IV BID, switch to PO probably at discharge Coreg Losartan Aldactone not indicated given LVEF>40% Repeat CXR today 2. COPD, stable: Supplemental oxygen therapy, currently on 2L/min, titrate to achieve spo2>=88% given COPD-er. On home oxygen up to 2L/min at night Prednisone DuoNEB NEB PRN wheezing or SOB 3. Anemia associated with chronic kidney disease stage 3: Avoid nephrotoxic agents Saline lock with oral diuretics CMP daily to trend kidney functions cbc w/ auto diff in the morning to trend H/H 4. GERD: Continue oral PPI from home regimen 5. Essential HTN: Currently normotensive Coreg Losartan Lasix 40mg IV BID, switch to PO probably at discharge 6. Mixed dyslipidemia: Continue statin therapy 7. Hypothyroidism: Continue oral thyroid replacement therapy 8. Elevated troponin level: f/u lab no change 2/2 demand ischemia in underlying CKD and chronic elevation no chest pain or ECG changes 9. Hypomagnesemia: MgSO4 IV replacement Repeat serum Mg level in the morning to trend level GI ppx: Continue oral PPI from home regimen DVT ppx: Lovenox Code status: DNI DNR Prognosis: Stable Disposition: Stays in inpatient med surg; [facility] resident, plan to discharge likely on Tuesday Time Spent With Patient Time: Total time spent is greater than 50% in coordination of care (as documented) at patient's floor/unit and/or counseling patient: Total time spent with greater than 50% in coordination of care (as documented) at patient's floor/unit and/or counseling patient:: Greater than 35 minutes QUALITY VTE Deep Vein Thrombosis/Pulmonary Embolism Present on Admission: No
[2021-11-16] MEDS: MAGNESIUM SULFATE 2 GM/50 ML BAG IV PRN (12:28)
[2021-11-16] MEDS: ATORVASTATIN 40 MG TABLET PO SCH (20:21)
[2021-11-16] MEDS: LORazepam 0.5 MG TABLET PO PRN (20:28)
[2021-11-16] MEDS ORDERED: MAGNESIUM OXIDE 400 MG TABLET PO SCH (21:00)
[2021-11-17] MEDS: 0.9 % SODIUM CHLORIDE 10 ML SYRINGE IV SCH (05:16)
[2021-11-17] MEDS: IPRATROPIUM/ALBUTEROL 3 ML AMPUL.NEB NEB PRN ×2 (05:16→11:43)
[2021-11-17 08:08] LABS: ALT/SGPT 19 U/L (<40); AST/SGOT 23 U/L (<40); Albumin 3.1 gm/dL (3.2-5.2); Albumin/Globulin Ratio 1.1 (1.0-2.3); Alkaline Phosphatase 56 U/L (39-117); Bilirubin,Total 0.6 mg/dL (0.1-1.0); Blood Urea Nitrogen 56 mg/dL (8-23); Calcium 7.9 mg/dL (8.6-10.4); Carbon Dioxide 28 mmol/L (22-30); Chloride 99 mmol/L (96-108); Globulin 2.9 gm/dL (2.2-3.7); Glomerular Filtration Rate 52; Glucose 87 mg/dL (70-105)
[2021-11-17] MEDS: LOSARTAN 50 MG TABLET PO SCH (08:11)
[2021-11-17] MEDS: PANTOPRAZOLE 40 MG TABLET PO SCH (08:11)
[2021-11-17] MEDS: ASPIRIN 81 MG TAB.CHEW PO SCH (08:11)
[2021-11-17] MEDS: amLODIPine 5 MG TABLET PO SCH (08:11)
[2021-11-17] MEDS: LEVOTHYROXINE 25 MCG TABLET PO SCH (08:11)
[2021-11-17] MEDS: SODIUM BICARBONATE 650 MG TABLET PO SCH (08:11)
[2021-11-17] MEDS: ISOSORBIDE MONONITRATE 60 MG TAB.XL.24H PO SCH (08:11)
[2021-11-17] MEDS: predniSONE 10 MG TABLET PO SCH (08:11)
[2021-11-17] MEDS: DOCUSATE SODIUM 100 MG CAPSULE PO SCH (08:11)
[2021-11-17] MEDS: CARVEDILOL 12.5 MG TABLET PO SCH (08:11)
[2021-11-17] MEDS: FUROSEMIDE 40 MG/4 ML VIAL IV SCH (08:25)
[2021-11-17] MEDS: Fluticasone-Umeclidin-Vilanter [Trelegy Ellipta] Inhaler INH SCH (08:26)
[2021-11-17] MEDS: ENOXAPARIN 40 MG/0.4 ML SYRINGE SQ SCH (08:31)
[2021-11-17 09:02] LABS: Basophils # (Auto) 0 K/mcL (0.00-0.30); Basophils % (Auto) 0 % (0.0-2.0); Eosinophils # (Auto) 0 K/mcL (0.00-0.70); Eosinophils % (Auto) 0 % (0.0-7.0); Hemoglobin 9.1 g/dL (13.7-17.5); Lymphocytes # (Auto) 0.89 K/mcL (1.50-4.80); Lymphocytes % (Auto) 39.9 % (15.5-49.0); Mean Cell Volume 91.2 fL (80.0-100.0); Mean Corpuscular HGB Conc 31.4 g/dL (31.0-36.0); Mean Platelet Volume 12.7 fL (7.4-10.4); Monocytes % (Auto) 17.9 % (1.0-12.0); Neutrophils % (Auto) 42.2 % (38.0-78.0); Platelet Count 87 K/mcL (140-440); Red Cell Distribution Width 16.8 % (11.5-14.5)
[2021-11-17 09:04] LABS: RBC 3.18 M/mcL (4.63-6.08); WBC 2.2 K/mcL (4.5-11.0)
--- NOTE | 2021-11-17 10:22 | Discharge Summary ---
Discharge Provider Provider Patient information: Note initiated : 11/17/21 at 10:17 am Service Date, if different from initiated Date: [] Patient: Kike Ramirez 81 y/o M admitted on 11/11/21 for shortness of breath, thoracentesis. Chief Complaint: [] Date of admission: 11/11/21 19:48 Discharge date: 11/17/21 Primary care physician: Murphy Kyle DO Attending physician on admission: Nikunj Luna Consults: 11/11/21 Consult to Physician [CONS] Stat Comment: Consulting Provider: Jarrod Musa Reason For Exam: Physician to Consult Attending physician on discharge: Nikunj Luna Discharge Meds Discharge Medications Home Medications aspirin 81 mg tablet,delayed release 81 mg PO QDAY 10/06/15 [History Confirmed 11/12/21 Last Taken 11/11/21 08:00] calcium 1000/magnesium 500 1 tab PO QDAY 02/05/19 [History Confirmed 11/12/21 Last Taken 11/11/21 08:00] cholecalciferol (vitamin D3) 125 mcg (5,000 unit) tablet 125 mcg PO QDAY 02/21/20 [History Confirmed 11/12/21 Last Taken 11/11/21 08:00] albuterol sulfate 2.5 mg (3 mL) INHALATION Q6H PRN #1080 ml 04/16/20 [Rx Confirmed 11/12/21 Last Taken 11/11/21 09:00] magnesium oxide 400 mg PO QDAY #90 cap 02/18/21 [Rx Confirmed 11/12/21 Last Taken 11/11/21 08:00] atorvastatin 40 mg tablet 40 mg PO QHS #90 tab 02/25/21 [Rx Confirmed 11/12/21 Last Taken 11/10/21 21:00] carvedilol 25 mg tablet 25 mg PO BID #180 tab 02/25/21 [Rx Confirmed 11/12/21 Last Taken 11/11/21 08:00] levothyroxine 25 mcg tablet 25 mcg PO QDAY #90 tab 02/25/21 [Rx Confirmed 11/12/21 Last Taken 11/11/21 08:00] pantoprazole 40 mg tablet,delayed release 40 mg PO QDAY #90 tab 02/25/21 [Rx Confirmed 11/12/21 Last Taken 11/11/21 08:00] sodium bicarbonate 650 mg tablet 650 mg PO BID #180 tab 05/06/21 [Rx Confirmed 11/12/21 Last Taken 11/11/21 08:00] amlodipine 5 mg tablet 10 mg PO QDAY tab 08/10/21 [History Confirmed 11/12/21 Last Taken 11/11/21 08:00] isosorbide mononitrate 60 mg tablet,extended release 24 hr 60 mg PO QDAY tab 08/10/21 [History Confirmed 11/12/21 Last Taken 11/11/21 08:00] losartan 50 mg tablet 50 mg PO BID tab 08/10/21 [History Confirmed 11/12/21 Last Taken 11/11/21 08:00] bismuth subsalicylate 262 mg/15 mL oral suspension (Pepto-Bismol) 524 mg PO Q30- 60M PRN 10/27/21 [History Confirmed 11/12/21 Last Taken 11/11/21 08:00] fluticasone fur. 200 mcg-umeclid 62.5 mcg-vilant 25 mcg inhalat.powder (Trelegy Ellipta) 1 inh INHALATION QDAY 11/11/21 [History Confirmed 11/12/21 Last Taken 11/11/21 08:00] prednisone 10 mg tablet 10 mg PO QDAY 11/12/21 [History Confirmed 11/12/21 Last Taken 11/11/21 08:00] dextromethorphan-guaifenesin 10 mg-100 mg/5 mL oral liquid (Robafen DM Cough) 10 ml PO Q4HP PRN #500 ml 11/17/21 [Rx Last Taken Unknown] furosemide 40 mg tablet (Lasix) 40 mg PO BID #60 tab 11/17/21 [Rx Last Taken Unknown] hydrocodone 5 mg-acetaminophen 325 mg tablet 1 tab PO Q6H PRN #12 tab 11/17/21 [Rx Last Taken Unknown] lorazepam 0.5 mg tablet 0.5 mg PO Q8HP PRN #12 tab 11/17/21 [Rx Last Taken Unknown] COURSE Hospital Course Hospital course: Presents the ED with shortness of breath the past several days. He did receive a thoracentesis 2 days ago where liter of transudate of appearing fluid was removed. He was mildly hypoxic in the ED. On work-up he had chest x-ray which showed pulmonary edema and patient was given 40 of Lasix. Did have history of CAD and he had a elevated troponin with a repeat 3 hours later which was the same. Patient does have a history of chronic kidney disease. No chest pain or EKG changes per ED. This is likely demand ischemia from heart failure. Patient states he is more short of breath and lays on his back. Has a mild nonproductive cough Patient was here in in mid September for pneumonia versus aspiration pneumonia. He was given 40 of Lasix in the ED and put out 800 cc by the time I saw him.. 11/12 Patient has cough, feels like he is breathing better today. Just turned him down to 2 L. Good urine output overnight. Patient states he is feeling better today. 11/13: Afebrile overnight. Still on 2L/min oxygen overnight and this morning. Good diuresis with IV Lasix. c/o same degree of shortness of breath. c/o nonproductive cough. Denies respiratory wheezing. Denies chest pain or chest tightness. Denies fever, chills, or sweating. 11/14: Afebrile overnight. Still on 2L/min oxygen overnight and this morning. c/o worsening shortness of breath. c/o nonproductive cough. Denies respiratory wheezing. Denies chest pain or chest tightness. Denies fever, chills, or sweating. 11/15: Low grade fever Tmax 37.5. Still on 2L/min oxygen overnight and this morning. Improving degree of shortness of breath. c/o nonproductive cough. Denies respiratory wheezing. Denies chest pain or chest tightness. Denies fever, chills, or sweating. 11/16: Afebrile overnight. Still on 2L/min oxygen overnight and this morning. c/o shortness of breath. c/o nonproductive cough. Denies respiratory wheezing. Denies chest pain or chest tightness. Denies fever, chills, or sweating. 11/17: Reached clinical stability. Discharged to [facility]. All questions answered prior to patient being physically discharged. Discharge diagnosis: CHF exacerbation Time Spent with Patient Time attestation: Total time spent providing and/or coordinating discharge services: Time spent: Less than 30 minutes EXAM Constitutional Vitals: Temp Pulse Resp BP Pulse Ox 36.6 C 71 24 H 115/65 92 11/17/21 07:47 11/17/21 07:47 11/17/21 07:47 11/17/21 07:47 11/17/21 07:47 General appearance: cooperative and no acute distress Head Head exam: Present atraumatic and normocephalic Eye Eye exam: Present EOMI and PERRL ENT ENT exam: Present mucous membranes moist, normal exam and normal external ear exam Additional comments: Nasal cannula in place Neck Neck exam: Present normal inspection; Absent lymphadenopathy, tenderness or thyromegaly Respiratory Respiratory exam: Present rhonchi and wheezes; Absent normal respiratory exam, accessory muscle use or respiratory distress Cardiovascular Cardiovascular exam: Present normal rate and rhythm; Absent JVD GI/Abdominal GI/Abdominal exam: Present normal bowel sounds and soft; Absent organomegaly or tenderness Rectal Rectal exam: Present deferred Extremities Exam Extremities exam: Present full ROM, normal capillary refill and normal inspection; Absent tenderness Neurological Exam Neurological exam: Present alert, CN II-XII intact and oriented X3; Absent motor sensory deficit Psychiatric Psychiatric exam: Present normal affect and normal mood; Absent anxious or depressed Skin Skin exam: Present dry and intact Discharge Data Data Completed and Pending Labs on day of discharge: Labs from last 24 hours 11/17/21 11/17/21 11/16/21 05:10 05:10 05:36 WBC 2.2 L RBC 3.18 L Hgb 9.1 L Hct 29.0 L MCV 91.2 MCH 28.6 MCHC 31.4 RDW 16.8 H Plt Count 87 L MPV 12.7 H Neut % (Auto) 42.2 Lymph % (Auto) 39.9 [place] % (Auto) 17.9 H Eos % (Auto) 0 Baso % (Auto) 0 Lymph # (Auto) 0.89 L [place] # (Auto) 0.40 Eos # (Auto) 0 Baso # (Auto) 0 Absolute Neutrophils 0.94 L* Sodium 139 Potassium 4.3 Chloride 99 Carbon Dioxide 28 Anion Gap 12.0 BUN 56 H Creatinine 1.3 H GFR Calculation 52 Glucose 87 Calcium 7.9 L Magnesium 1.5 L Total Bilirubin 0.6 AST 23 ALT 19 Alkaline Phosphatase 56 Total Protein 6.0 Albumin 3.1 L Globulin 2.9 Albumin/Globulin Ratio 1.1 Discharge Plan Patient/Caregiver Discharge Instructions Activity: increase activity as tolerated Diet: Regular Diet Prescriptions: New dextromethorphan-guaifenesin [Robafen DM Cough] 10-100 mg/5 mL Liquid 10 ml PO Q4HP PRN (Reason: Cough) Qty: 500 0RF furosemide [Lasix] 40 mg tablet 40 mg PO BID Qty: 60 0RF Continued albuterol sulfate 2.5 mg /3 mL (0.083 %) solution for nebulization 2.5 mg INHALATION Q6H PRN (Reason: shortness of breath or wheezing) Qty: 1080 3RF magnesium oxide 400 mg magnesium capsule 400 mg PO QDAY Qty: 90 3RF pantoprazole 40 mg tablet,delayed release (DR/EC) 40 mg PO QDAY Qty: 90 3RF levothyroxine 25 mcg tablet 25 mcg PO QDAY Qty: 90 3RF carvedilol 25 mg tablet 25 mg PO BID Qty: 180 3RF atorvastatin 40 mg tablet 40 mg PO QHS Qty: 90 3RF calcium 1000/magnesium 500 1 tab PO QDAY 0RF isosorbide mononitrate 60 mg tablet extended release 24 hr 60 mg PO QDAY 0RF bismuth subsalicylate [Pepto-Bismol] 262 mg/15 mL suspension 524 mg PO Q30-60M PRN (Reason: Indigestion) 0RF Rx Instructions: do not exceed 8 doses in a 24 hour period aspirin 81 mg tablet,delayed release (DR/EC) 81 mg PO QDAY 0RF sodium bicarbonate 650 mg tablet 650 mg PO BID Qty: 180 3RF cholecalciferol (vitamin D3) 125 mcg (5,000 unit) tablet 125 mcg (5,000 unit) tablet 125 mcg PO QDAY 0RF amlodipine 5 mg tablet 10 mg PO QDAY 0RF losartan 50 mg tablet 50 mg PO BID 0RF Trelegy Ellipta 200-62.5-25 mcg Blister With Device 1 inh INHALATION QDAY 0RF prednisone 10 mg Tablet 10 mg PO QDAY 0RF hydrocodone-acetaminophen 5-325 mg tablet 1 tab PO Q6H PRN (Reason: pain) Qty: 12 0RF lorazepam 0.5 mg Tablet 0.5 mg PO Q8HP PRN (Reason: Anxiety) Qty: 12 0RF Discontinued hydrochlorothiazide 12.5 mg tablet 25 mg tablet 25 mg PO QAM Qty: 90 3RF Follow Up Plan Follow up with: Murphy Kyle DO [Primary Care Provider] - Patient Disposition: Xfer SNF Prognosis: Fair Rehab Potential: Good I certify that the patient requires SNF services: Yes Overall status at discharge: patient is back to baseline Discharge Orders: Discharge Order (Routine); Ordered 11/17/21 Ordered By: Nikunj ATKINSON VTE Deep Vein Thrombosis/Pulmonary Embolism Present on Admission: No
== END 2021-11-17 13:18 | DRG 291 ==
LOC: ED 12:58 → ICU 19:48 → MEDSUR 11-14 11:51
PROVIDERS: ADMIT Internal Medicine; ATTEND Internal Medicine

== ENCOUNTER 2022-02-24 15:13 | Inpatient (IN) ==
[2022-02-24] MEDS ORDERED: HYDROcodone/APAP 5/325MG TABLET PO ONE (15:29)
[2022-02-24 15:50] LABS: POC Blood Urea Nitrogen 35 mg/dL (6-20); POC CO2 26 mmol/L (22-30); POC Calcium, Ionized 1.24 mmEq/L (1.16-1.32); POC Chloride 96 mEq/L (96-108); POC Creatinine 2.1 mg/dL (0.6-1.2); POC Glucose, Random 66 mg/dL (70-105); POC Hematocrit 27 % (41-55); POC Potassium 3.5 mEql/L (3.3-5.1); POC Sodium 137 mEq/L (133-145)
--- NOTE | 2022-02-24 16:08 | XRay Report ---
INDICATION: pain, swelling, comparison yesterday TECHNIQUE: AP, oblique, lateral, patellar views COMPARISON: Previous examination dated 02/23/2022 FINDINGS: Skeletal:Previous right total knee arthroplasty. No evidence for loosening or infection. No periprosthetic fracture. No interval change. There is probable calcification or ossification within the patellar ligament. Joint spaces:Patellofemoral joint space is within normal limits. Medial and lateral femoral tibial joint spaces are normal Suprapatellar recess and periarticular soft tissues:Severe atherosclerotic calcification. There is a vascular stent within the distal superficial femoral artery IMPRESSION: 1. Previous right total knee arthroplasty 2. No acute abnormality. No interval change since 02/23/2022 Interpreted and Authenticated by: Murphy Bassett 02/24/22
[2022-02-24 16:17] LABS: Basophils # (Auto) 0.02 K/mcL (0.00-0.30); Basophils % (Auto) 0.2 % (0.0-2.0); Eosinophils # (Auto) 0.01 K/mcL (0.00-0.70); Eosinophils % (Auto) 0.1 % (0.0-7.0); Hemoglobin 8.9 g/dL (13.7-17.5); Lymphocytes # (Auto) 1.38 K/mcL (1.50-4.80); Lymphocytes % (Auto) 11.5 % (15.5-49.0); Mean Cell Volume 97.6 fL (80.0-100.0); Mean Corpuscular HGB Conc 31.8 g/dL (31.0-36.0); Mean Platelet Volume 11.4 fL (7.4-10.4); Monocytes # (Auto) 2.27 K/mcL (0.10-0.90); Monocytes % (Auto) 18.9 % (1.0-12.0); Neutrophils % (Auto) 69.3 % (38.0-78.0); Platelet Count 101 K/mcL (140-440); RBC 2.87 M/mcL (4.63-6.08); Red Cell Distribution Width 14.7 % (11.5-14.5)
[2022-02-24 16:24] LABS: Erythrocyte Sedimentation Rate 23 mm/hr (0-20)
[2022-02-24] MEDS ORDERED: VANCOMYCIN 1,500 MG in 0.9 % SODIUM CHLORIDE 500 ML IV ONE (17:01)
[2022-02-24] MEDS ORDERED: cefTRIAXone 1 GM VIAL IV ONE ×3 (17:01→20:30)
[2022-02-24] MEDS ORDERED: 0.9 % SODIUM CHLORIDE 1,000 ML IV ONE (17:09)
[2022-02-24] MEDS ORDERED: cefTRIAXone 2 GM in DEXTROSE 5% IN WATER 50 ML IV ONE (17:20)
--- NOTE | 2022-02-24 17:22 | Internal Med History&Physical ---
HPI History of Present Illness Patient information: Note initiated : 02/24/22 at 5:22 pm Service Date, if different from initiated Date: [] Patient: Kike Ramirez 81 y/o M admitted on for Right Knee Pain. Chief Complaint: [] History of present illness: Mr. Ramirez is a 81 year old male with a history of hypertension, hyperlipidemia, coronary artery disease status post stent, peripheral arterial disease status post lower extremity arterial stents, chronic kidney disease stage III, diastolic heart failure, COPD, nocturnal hypoxia, hypothyroidism, gout, polymyalgia rheumatica on prednisone, right total knee arthroplasty. The patient presented to the emergency department for right knee pain that began on 02/20/2022. The patient also developed chills but does not think he had fevers over the next 2 days. He later developed redness over his right knee. In the emergency department, the patient had a high-grade temperature of 99.1, leukocytosis and an acute on chronic kidney disease injury. The patient's right knee is very tender, swollen and red concerning for septic arthritis. While in the emergency department, the patient underwent an arthrocentesis, fluid was sent for cell count and differential, crystal analysis, Gram stain and cultures. The patient also had blood cultures drawn, he was then started on vancomycin and ceftriaxone. Hospital medicine was consulted for admission. We discussed the plan of care in detail including a focused work-up for septic arthritis which is very possible in this case. We will also evaluate for possible gout however given history of right total knee arthroplasty septic arthritis is high in the differential. The patient says that he is previously had an infection in his right knee that required 6 months to treat, he says he also had a prosthetic knee at that time. We also discussed CODE STATUS in detail, the patient wishes to be DNR/DNI. Review of systems Constitutional: Positive for chills, denies fever Eyes: no vision changes or pain Cardiovascular: no chest pain, no palpitations Respiratory: no cough or dyspnea Gastrointestinal: no abdominal pain, no nausea, vomiting, or diarrhea Genitourinary: no dysuria or difficulty voiding Musculoskeletal: Positive for right knee pain Integumentary: Positive for redness around right knee Neurological: no focal weakness or numbness Psychiatric: no anxiety or depression Physical exam Head: Atraumatic, normal inspection. Eyes: normal appearance, no scleral icterus. Neck: full ROM Respiratory: Nasal cannula oxygen 2 L/min, no respiratory distress. Cardiovascular: normal rate and rhythm, S1, S2. GI/Abdominal: soft, nontender, no guarding. Extremities: Right knee tenderness to active and passive motion. Neurological: CN II-XII intact, intact motor, intact sensation. Psychiatric: normal mood. Skin: Right knee warmth and redness. PFSH PFSH All Active Problems (Updated 02/24/22 @ 17:34 by Jarrod Murillo DO) Acute knee pain (Acute) Septic arthritis (Acute) Acute kidney injury (Acute) Hypoxia (Acute) Medicare annual wellness visit, subsequent (Acute) Acute pain of left shoulder (Acute) Borderline low blood pressure determined by examination (Acute) Iatrogenic adrenal insufficiency (Chronic) Secondary hyperparathyroidism of renal origin (Chronic) Anemia due to stage 3a chronic kidney disease (Chronic) Osteopenia (Acute) Paronychia (Acute) CHF (congestive heart failure) (Chronic) Fall (Acute) Chronic kidney disease (CKD) stage G3a/A2, moderately decreased glomerular filtration rate (GFR) between 45-59 mL/min/1.73 square meter and albuminuria creatinine ratio between 30-299 mg/g (Chronic) Colon cancer screening (Acute) Renal artery stenosis in 1 of 2 vessels (Chronic) Alcohol abuse (Chronic) Risk for falls (Chronic) Nocturnal hypoxemia (Chronic) Localized edema due to fluid overload (Chronic) Steroid dependent (Chronic) PAF (paroxysmal atrial fibrillation) (Chronic) Fatigue (Chronic) 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) Foot drop, right (Chronic) Metabolic Syndrome X (Chronic) Cubital tunnel syndrome of both upper extremities (Chronic) Hyperglycemia (Chronic) Hypomagnesemia (Chronic) Gout (Chronic) Hypertensive renal disease (Chronic) Vitamin D deficiency (Chronic) Schatzki's ring (Chronic) Premature atrial contractions (Chronic) Polymyalgia rheumatica (Chronic) Peripheral vascular disease (Chronic) Paresthesia (Chronic) Neck pain (Chronic) Low back pain (Chronic) Knee pain (Chronic) Hypothyroidism (acquired) (Chronic) Hypertension, essential (Chronic) Hyperlipidemia (Chronic) Hip pain (Chronic) Gastroesophageal reflux (Chronic) Fatty liver disease, nonalcoholic (Chronic) Dysmetabolic syndrome X (Chronic) DJD (degenerative joint disease) (Chronic) Simple cyst of kidney (Chronic) Coronary artery disease (Chronic 08/22/12) Vascular claudication (Chronic 04/01/13) Carotid stenosis (Chronic) Carotid bruit (Chronic 02/16/13) Atherosclerosis (Chronic) Anemia (Chronic) Medical History Abnormal transaminases Acute exacerbation of chronic obstructive airways disease Acute exacerbation of chronic obstructive airways disease Resolved Continue albuterol nebs as needed Continue prednisone 10 mg daily Follows with pulmonology Acute kidney failure (08/21/08) Alcohol abuse Anemia Atherosclerosis Carotid bruit (02/16/13) left>right Carotid stenosis Cellulitis Cerebrovascular accident Chest pain Recorded 08/14/12-also on 01/04/2007, 04/16/06; 12/21/10 Colon cancer screening Colonoscopy is planned, but we will have to cancel this until he gets his CABG. Colon polyp (12/16/14) TA HP Colon polyp 2014 Community acquired pneumonia Resolved with Augmentin and azithromycin Contusion of head COPD (chronic obstructive pulmonary disease) with chronic bronchitis Coronary artery disease (08/22/12) Status post PCI Continue medical management with aspirin, statin, beta-karla Follows with cardiology Cubital tunnel syndrome of both upper extremities DJD (degenerative joint disease) Dysmetabolic syndrome X Elevated troponin I level Erosive gastritis Fall Ecchymosis on bilateral arms. Left arm with healing skin slip. Walker recommended at all times (currently using a cane). He has handrails on all his stairs at home. Fatty liver disease, nonalcoholic Foot drop, right Gastritis Gastroesophageal reflux Gout Hip pain recorded 03/23/08-bilateral History of severe acute respiratory syndrome coronavirus 2 (SARS-CoV-2) disease November 2021 Hx of urinary tract infection Hyperglycemia Hyperkalemia Hyperlipidemia Hypertension, essential Hypertensive renal disease BP at goal in the clinic today imp to keep BP log given multiple medical issues Goal BP is less than 140/90 ct current medications follow low sodium diet exercise if possible Hypomagnesemia Hypothyroidism (acquired) TSH mildly elevated. Educated patient on timing of levothyroxine dose Recheck TSH in 6 weeks Internal derangement of knee recorded 12/30/10 patellor erosion secondary to Cerclage wire Knee pain 05/2011-post tka Low back pain 05/2011 chronic low back pain Macrocytosis (01/25/11) Medicare annual wellness visit, subsequent Metabolic Syndrome X Myocardial infarction acute (12/22/10) Neck pain recorded 11/16/2010 OA Nocturnal hypoxemia Recommend patient continue oxygen supplementation at night Occlusion of right internal carotid artery Palpitations Paresthesia Right Leg Peripheral vascular disease severe. bilateral iliac artery stents PNA (pneumonia) Likely due to aspiration Polymyalgia rheumatica Recent flare Was put on prednisone 40 mg while in the hospital, then weaned off quickly, but pain flared up again Post-polypectomy bleeding Resolved Premature atrial contractions Psoriatic arthritis Pretibial psoriasis skin lesions Renal artery stenosis in 1 of 2 vessels Right renal artery 50 to 70% stenosis. Blood pressure currently well controlled, but consider further work-up and possible stenting if this becomes a problem Risk for falls Schatzki's ring Simple cyst of kidney bilateral Thoracic back pain Thrombocytopenia H/O Upper gastrointestinal hemorrhage post gastric polypectomy Vascular claudication (04/01/13) Legs Vitamin B 12 deficiency H/O Vitamin D deficiency H/O Surgical History H/O cardiac catheterization (~11/15/19) And coronary angiography by Dr. Jarrod Griffin History of carotid endarterectomy 02/2015 History of intravascular stent placement 11/2010 Multi-RCA 03/2006 and right iliac stent. Also [place] x 2 RCA + PRO/RCA 11/2010 RE do bilateral legs 12/2014- Dr Jon Hx of angioplasty Hx of cardiac catheterization 12/21/2010 and PCI Hx of cataract surgery 12/2005 Hx of colonoscopy 08/30/07-AP, HP. 12/16/14-TA & HP-5 year follow up. Hx of coronary angioplasty Hx of esophagogastroduodenoscopy (12/17/14) 12/17/14-erosive esophagitis and stricture. 03/16/17-gastric polypectomy and erosive gastritis. 03/17/17-GI bleed post polypectomy Hx of foot surgery Ankle brachial indices Hx of knee surgery recorded 04/02/87 and 11/01--Right 10/31/12 had hardware removed from right knee Hx of plastic surgery 1959's nose Hx of thumb surgery Hx of tonsillectomy recorded 04/02/87 Hx of total knee arthroplasty 2011, 12/2008 Right knee x's 3 2007 Family History mother Malignant neoplasm, Onset Age: 72 father Cerebrovascular accident (CVA), Onset Age: 49 Social History household members: alone housing: house lives independently: Yes marital status: education level: high school occupational status: retired smoking status: Former smoker alcohol intake frequency: a few times a month substance use type: does not use MEDS/ALLERGIES Home Medications and Allergies Home Medications Medication Instructions Recorded Confirmed Type aspirin 81 mg tablet,delayed 81 mg PO QDAY 10/06/15 02/24/22 History release calcium 1000/magnesium 500 1 tab PO QDAY 02/05/19 02/24/22 History cholecalciferol (vitamin D3) 125 125 mcg PO QDAY 02/21/20 02/24/22 History mcg (5,000 unit) tablet albuterol sulfate 2.5 mg (3 mL) INHALATION Q6H PRN 04/16/20 02/24/22 Rx #1080 ml magnesium oxide 400 mg PO QDAY #90 cap 02/18/21 02/24/22 Rx atorvastatin 40 mg tablet 40 mg PO QHS #90 tab 02/25/21 02/24/22 Rx carvedilol 25 mg tablet 25 mg PO BID #180 tab 02/25/21 02/24/22 Rx levothyroxine 25 mcg tablet 25 mcg PO QDAY #90 tab 02/25/21 02/24/22 Rx pantoprazole 40 mg tablet,delayed 40 mg PO QDAY #90 tab 02/25/21 02/24/22 Rx release sodium bicarbonate 650 mg tablet 650 mg PO BID #180 tab 05/06/21 02/24/22 Rx isosorbide mononitrate 60 mg 60 mg PO QDAY tab 08/10/21 02/24/22 History tablet,extended release 24 hr bismuth subsalicylate 262 mg/15 mL 524 mg PO Q30-60M PRN 10/27/21 02/24/22 History oral suspension (Pepto-Bismol) prednisone 10 mg tablet 10 mg PO QDAY 11/12/21 02/24/22 History dextromethorphan-guaifenesin 10 10 ml PO Q4HP PRN #500 ml 11/17/21 02/24/22 Rx mg-100 mg/5 mL oral liquid (Robafen DM Cough) losartan 50 mg tablet 50 mg PO QDAY #90 tab 12/30/21 02/24/22 Rx Oxygen #1 ea 01/20/22 01/20/22 Rx amlodipine 5 mg tablet 5 mg PO QDAY #90 tab 01/20/22 02/24/22 Rx furosemide 40 mg tablet (Lasix) 40 mg PO QDAY #90 tab 01/20/22 02/24/22 Rx fluticasone fur. 200 mcg-umeclid 1 inh INHALATION QDAY #90 ea 02/03/22 02/24/22 Rx 62.5 mcg-vilant 25 mcg inhalat.powder (Trelegy Ellipta) Allergies Allergy/AdvReac Type Severity Reaction Status Date / Time levofloxacin [From Levaquin] AdvReac Mild Hypotension Verified 02/24/22 17:55 EXAM Constitutional Vitals: Pulse Resp BP Pulse Ox 66 18 104/54 96 02/24/22 17:02 02/24/22 15:14 02/24/22 17:02 02/24/22 17:02 DATA Data Completed and Pending Labs: Labs from last 24 hours 02/24/22 02/24/22 15:39 15:39 WBC 12.0 H RBC 2.87 L Hgb 8.9 L Hct 28.0 L POC Hct 27 L MCV 97.6 MCH 31.0 MCHC 31.8 RDW 14.7 H Plt Count 101 L MPV 11.4 H Neut % (Auto) 69.3 Lymph % (Auto) 11.5 L [place] % (Auto) 18.9 H Eos % (Auto) 0.1 Baso % (Auto) 0.2 Lymph # (Auto) 1.38 L [place] # (Auto) 2.27 H Eos # (Auto) 0.01 Baso # (Auto) 0.02 Absolute Neutrophils 8.34 H ESR 23 H POC Sodium 137 POC Potassium 3.5 POC Chloride 96 POC Total CO2 26 POC BUN 35 H POC Creatinine 2.1 H POC Glucose 66 L POC WB Ioniz Calcium 1.24 C-Reactive Protein 24.90 H A/P Narrative A/P Narrative: Assessment: #Possible septic arthritis of prosthetic right knee #History of right total knee arthroplasty #Acute on chronic kidney disease stage III injury #Coronary artery disease status post stent #Chronic diastolic heart failure #Moderate mitral regurgitation #COPD with nocturnal hypoxia #Peripheral arterial disease #Hypertension #Hyperlipidemia #Hypothyroidism #Polymyalgia rheumatica on prednisone Plan -Vancomycin and Ceftriaxone. -Follow arthrocentesis fluid cell count and differential, crystal analysis, gram stain and culture. -Blood cultures x2. -Orthopedic surgery consult. -IV fluid. -Follow renal function and urine output. -Analgesics prn, avoid NSAIDs. -Chest x-ray PA and lateral. -EKG ordered for preoperative baseline. -Home medications reconciliation, resume important meds. -Regular diet. -DVT prophylaxis: heparin SQ -Code status: DNR/DNI -Disposition: Probably SNF. Time Spent With Patient Time: Total time spent is greater than 50% in coordination of care (as documented) at patient's floor/unit and/or counseling patient:
--- NOTE | 2022-02-24 17:34 | Emergency Department Note ---
HPI General Chief complaint: Extremity Injury, Lower Stated complaint: Right Knee Pain Time Seen by Provider: 02/24/22 15:15 Source: patient and EMS Mode of arrival: EMS Limitations: no limitations History of Present Illness HPI Narrative: Narrative: 81-year-old male with history of artificial joint in the right knee, visit yesterday for knee pain and swelling which has been going on for approximately 2 days returns for evaluation of inability to bear weight/ambulate, chills at home, redness developing over the area. He denies any definite recorded fevers. He denies chest pain or shortness of breath. He denies any GI distress. He has been tolerating p.o. but has not been able to take anything today because he has not been able to get up and has no support at home Related Data Home Medications Medication Instructions Recorded Confirmed aspirin 81 mg tablet,delayed 81 mg PO QDAY 10/06/15 01/20/22 release calcium 1000/magnesium 500 1 tab PO QDAY 02/05/19 01/20/22 cholecalciferol (vitamin D3) 125 125 mcg PO QDAY 02/21/20 01/20/22 mcg (5,000 unit) tablet isosorbide mononitrate 60 mg 60 mg PO QDAY tab 08/10/21 01/20/22 tablet,extended release 24 hr bismuth subsalicylate 262 mg/15 mL 524 mg PO Q30-60M PRN 10/27/21 01/20/22 oral suspension (Pepto-Bismol) prednisone 10 mg tablet 10 mg PO QDAY 11/12/21 01/20/22 Previous Rx's Medication Instructions Recorded albuterol sulfate 2.5 mg (3 mL) INHALATION Q6H PRN 04/16/20 #1080 ml magnesium oxide 400 mg PO QDAY #90 cap 02/18/21 atorvastatin 40 mg tablet 40 mg PO QHS #90 tab 02/25/21 carvedilol 25 mg tablet 25 mg PO BID #180 tab 02/25/21 levothyroxine 25 mcg tablet 25 mcg PO QDAY #90 tab 02/25/21 pantoprazole 40 mg tablet,delayed 40 mg PO QDAY #90 tab 02/25/21 release sodium bicarbonate 650 mg tablet 650 mg PO BID #180 tab 05/06/21 dextromethorphan-guaifenesin 10 10 ml PO Q4HP PRN #500 ml 11/17/21 mg-100 mg/5 mL oral liquid (Robafen DM Cough) losartan 50 mg tablet 50 mg PO QDAY #90 tab 12/30/21 Oxygen #1 ea 01/20/22 amlodipine 5 mg tablet 5 mg PO QDAY #90 tab 01/20/22 furosemide 40 mg tablet (Lasix) 40 mg PO QDAY #90 tab 01/20/22 fluticasone fur. 200 mcg-umeclid 1 inh INHALATION QDAY #90 ea 02/03/22 62.5 mcg-vilant 25 mcg inhalat.powder (Trelegy Ellipta) Allergies Allergy/AdvReac Type Severity Reaction Status Date / Time levofloxacin [From Levaquin] AdvReac Mild Hypotension Verified 02/23/22 14:21 Review of Systems ROS ROS Narrative: Narrative: All systems ED: reviewed and negative except as stated. COUNT INCLUDES THE [facility] Narrative Patient History Narrative: Narrative: Medical/Surgical/Family History All Active Problems (Updated 02/24/22 @ 17:34 by Jarrod Murillo DO) Acute knee pain (Acute) Septic arthritis (Acute) Acute kidney injury (Acute) Hypoxia (Acute) Medicare annual wellness visit, subsequent (Acute) Acute pain of left shoulder (Acute) Borderline low blood pressure determined by examination (Acute) Iatrogenic adrenal insufficiency (Chronic) Secondary hyperparathyroidism of renal origin (Chronic) Anemia due to stage 3a chronic kidney disease (Chronic) Osteopenia (Acute) Paronychia (Acute) CHF (congestive heart failure) (Chronic) Fall (Acute) Chronic kidney disease (CKD) stage G3a/A2, moderately decreased glomerular filtration rate (GFR) between 45-59 mL/min/1.73 square meter and albuminuria creatinine ratio between 30-299 mg/g (Chronic) Colon cancer screening (Acute) Renal artery stenosis in 1 of 2 vessels (Chronic) Alcohol abuse (Chronic) Risk for falls (Chronic) Nocturnal hypoxemia (Chronic) Localized edema due to fluid overload (Chronic) Steroid dependent (Chronic) PAF (paroxysmal atrial fibrillation) (Chronic) Fatigue (Chronic) 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) Foot drop, right (Chronic) Metabolic Syndrome X (Chronic) Cubital tunnel syndrome of both upper extremities (Chronic) Hyperglycemia (Chronic) Hypomagnesemia (Chronic) Gout (Chronic) Hypertensive renal disease (Chronic) Vitamin D deficiency (Chronic) Schatzki's ring (Chronic) Premature atrial contractions (Chronic) Polymyalgia rheumatica (Chronic) Peripheral vascular disease (Chronic) Paresthesia (Chronic) Neck pain (Chronic) Low back pain (Chronic) Knee pain (Chronic) Hypothyroidism (acquired) (Chronic) Hypertension, essential (Chronic) Hyperlipidemia (Chronic) Hip pain (Chronic) Gastroesophageal reflux (Chronic) Fatty liver disease, nonalcoholic (Chronic) Dysmetabolic syndrome X (Chronic) DJD (degenerative joint disease) (Chronic) Simple cyst of kidney (Chronic) Coronary artery disease (Chronic 08/22/12) Vascular claudication (Chronic 04/01/13) Carotid stenosis (Chronic) Carotid bruit (Chronic 02/16/13) Atherosclerosis (Chronic) Anemia (Chronic) Medical History Abnormal transaminases Acute exacerbation of chronic obstructive airways disease Acute exacerbation of chronic obstructive airways disease Resolved Continue albuterol nebs as needed Continue prednisone 10 mg daily Follows with pulmonology Acute kidney failure (08/21/08) Alcohol abuse Anemia Atherosclerosis Carotid bruit (02/16/13) left>right Carotid stenosis Cellulitis Cerebrovascular accident Chest pain Recorded 08/14/12-also on 01/04/2007, 04/16/06; 12/21/10 Colon cancer screening Colonoscopy is planned, but we will have to cancel this until he gets his CABG. Colon polyp (12/16/14) TA HP Colon polyp 2014 Community acquired pneumonia Resolved with Augmentin and azithromycin Contusion of head COPD (chronic obstructive pulmonary disease) with chronic bronchitis Coronary artery disease (08/22/12) Status post PCI Continue medical management with aspirin, statin, beta-karla Follows with cardiology Cubital tunnel syndrome of both upper extremities DJD (degenerative joint disease) Dysmetabolic syndrome X Elevated troponin I level Erosive gastritis Fall Ecchymosis on bilateral arms. Left arm with healing skin slip. Walker recommended at all times (currently using a cane). He has handrails on all his stairs at home. Fatty liver disease, nonalcoholic Foot drop, right Gastritis Gastroesophageal reflux Gout Hip pain recorded 03/23/08-bilateral History of severe acute respiratory syndrome coronavirus 2 (SARS-CoV-2) disease November 2021 Hx of urinary tract infection Hyperglycemia Hyperkalemia Hyperlipidemia Hypertension, essential Hypertensive renal disease BP at goal in the clinic today imp to keep BP log given multiple medical issues Goal BP is less than 140/90 ct current medications follow low sodium diet exercise if possible Hypomagnesemia Hypothyroidism (acquired) TSH mildly elevated. Educated patient on timing of levothyroxine dose Recheck TSH in 6 weeks Internal derangement of knee recorded 12/30/10 patellor erosion secondary to Cerclage wire Knee pain 05/2011-post tka Low back pain 05/2011 chronic low back pain Macrocytosis (01/25/11) Medicare annual wellness visit, subsequent Metabolic Syndrome X Myocardial infarction acute (12/22/10) Neck pain recorded 11/16/2010 OA Nocturnal hypoxemia Recommend patient continue oxygen supplementation at night Occlusion of right internal carotid artery Palpitations Paresthesia Right Leg Peripheral vascular disease severe. bilateral iliac artery stents PNA (pneumonia) Likely due to aspiration Polymyalgia rheumatica Recent flare Was put on prednisone 40 mg while in the hospital, then weaned off quickly, but pain flared up again Post-polypectomy bleeding Resolved Premature atrial contractions Psoriatic arthritis Pretibial psoriasis skin lesions Renal artery stenosis in 1 of 2 vessels Right renal artery 50 to 70% stenosis. Blood pressure currently well controlled, but consider further work-up and possible stenting if this becomes a problem Risk for falls Schatzki's ring Simple cyst of kidney bilateral Thoracic back pain Thrombocytopenia H/O Upper gastrointestinal hemorrhage post gastric polypectomy Vascular claudication (04/01/13) Legs Vitamin B 12 deficiency H/O Vitamin D deficiency H/O Surgical History H/O cardiac catheterization (~11/15/19) And coronary angiography by Dr. Jarrod Griffin History of carotid endarterectomy 02/2015 History of intravascular stent placement 11/2010 Multi-RCA 03/2006 and right iliac stent. Also Stanet x 2 RCA + PRO/RCA 11/2010 RE do bilateral legs 12/2014- Dr Jon Hx of angioplasty Hx of cardiac catheterization 12/21/2010 and PCI Hx of cataract surgery 12/2005 Hx of colonoscopy 08/30/07-AP, HP. 12/16/14-TA & HP-5 year follow up. Hx of coronary angioplasty Hx of esophagogastroduodenoscopy (12/17/14) 12/17/14-erosive esophagitis and stricture. 03/16/17-gastric polypectomy and erosive gastritis. 03/17/17-GI bleed post polypectomy Hx of foot surgery Ankle brachial indices Hx of knee surgery recorded 04/02/87 and 11/01--Right 10/31/12 had hardware removed from right knee Hx of plastic surgery 1960's nose Hx of thumb surgery Hx of tonsillectomy recorded 04/02/87 Hx of total knee arthroplasty 2011, 12/2008 Right knee x's 3 2007 Family History mother Malignant neoplasm, Onset Age: 72 father Cerebrovascular accident (CVA), Onset Age: 49 Social History Smoking Status: Unknown if ever smoked Alcohol Intake Frequency: a few times a month Substance Use: does not use Exam Narrative Narrative: Narrative: General Limitations: no limitations General appearance: Present alert and in no apparent distress Head Head: Present atraumatic and normocephalic Eye Eye: Present normal appearance and PERRL ENT ENT: Present normal exam and normal oropharynx Neck Neck: Present normal inspection and full ROM Chest Chest: Present normal inspection and symmetric chest wall rise Respiratory Respiratory: Absent respiratory distress Cardiovascular Cardiovascular: Present regular rate and normal rhythm Adbominal Abdominal: Present soft; Absent distention or tenderness Extremities Extremities: Present other (Right knee with well-healed surgical scar, erythematous surrounding the joint, edematous and warm, able to range of motion with some pain but patient tolerates) Back Back: Present normal inspection and full ROM Neurological Neurological: Present alert and oriented X3 Psychiatric Psychiatric: Present normal affect and normal mood Skin Skin: Present warm (WNL), dry and normal color Course Vital Signs Vital signs: Vital Signs Pulse Rate 78 02/24/22 15:14 Respiratory Rate 18 02/24/22 15:14 Pulse Oximetry (%) 92 02/24/22 15:14 Pulse Rate 68 02/24/22 17:16 Respiratory Rate 18 02/24/22 15:14 Blood Pressure 117/55 02/24/22 17:16 Pulse Oximetry (%) 97 02/24/22 17:16 MDM MDM Narrative Medical decision making narrative: Narrative: Patient with suspected septic joint with underlying prosthetic of the right knee discussed with Eve Montano who recommends attempted joint aspiration for culture here. This was done, and then patient was subsequently given antibiotics and admitted. Unable to obtain large-volume aspiration. He additionally had acute kidney injury and was given IV fluids. Admitted for further care Medical Records Medical records reviewed: Yes I reviewed the patient's medical records. Lab Data Lab results reviewed: Yes I reviewed the patient's lab results. Result diagrams: 02/24/22 15:39 Labs: Lab Results 02/24/22 02/24/22 Range/Units 15:39 15:39 WBC 12.0 H (4.5-11.0) K/mcL RBC 2.87 L (4.63-6.08) M/mcL Hgb 8.9 L (13.7-17.5) g/dL Hct 28.0 L (40.1-51.0) % POC Hct 27 L (41-55) % MCV 97.6 (80.0-100.0) fL MCH 31.0 (26.0-34.0) pg MCHC 31.8 (31.0-36.0) g/dL RDW 14.7 H (11.5-14.5) % Plt Count 101 L (140-440) K/mcL MPV 11.4 H (7.4-10.4) fL Neut % (Auto) 69.3 (38.0-78.0) % Lymph % (Auto) 11.5 L (15.5-49.0) % Ross % (Auto) 18.9 H (1.0-12.0) % Eos % (Auto) 0.1 (0.0-7.0) % Baso % (Auto) 0.2 (0.0-2.0) % Lymph # (Auto) 1.38 L (1.50-4.80) K/mcL Ross # (Auto) 2.27 H (0.10-0.90) K/mcL Eos # (Auto) 0.01 (0.00-0.70) K/mcL Baso # (Auto) 0.02 (0.00-0.30) K/mcL Absolute Neutrophils 8.34 H (1.80-8.00) K/mcL ESR 23 H (0-20) mm/hr POC Sodium 137 (133-145) mEq/L POC Potassium 3.5 (3.3-5.1) mEql/L POC Chloride 96 (96-108) mEq/L POC Total CO2 26 (22-30) mmol/L POC BUN 35 H (6-20) mg/dL POC Creatinine 2.1 H (0.6-1.2) mg/dL POC Glucose 66 L (70-105) mg/dL POC WB Ioniz Calcium 1.24 (1.16-1.32) mmEq/L C-Reactive Protein 24.90 H (0.03-0.80) mg/dL Radiology Data Radiology results reviewed: Yes I reviewed the patient's radiology results. CC TIME Critical Care Time Critical Care Time: Yes Attestation: Approximately 30 minutes of critical care time was used in order to assess and manage the high probability of imminent or life threatening deterioration to septic arthritis with acute kidney injury] which required my highest level of preparedness and interventions with frequent patient assessments. This time is excluding time spent on separately billable procedures. Discharge Plan Patient/Caregiver Discharge Instructions Pt seen by HIM ANALYST/PA only: No Clinical Impression: Septic arthritis, Acute kidney injury Patient Disposition: Xfer As Inpt ([facility]) Follow up with: Murphy Kyle DO [Primary Care Provider] - Prescriptions: No Action albuterol sulfate 2.5 mg /3 mL (0.083 %) solution for nebulization 2.5 mg INHALATION Q6H PRN (Reason: shortness of breath or wheezing) Qty: 1080 3RF magnesium oxide 400 mg magnesium capsule 400 mg PO QDAY Qty: 90 3RF pantoprazole 40 mg tablet,delayed release (DR/EC) 40 mg PO QDAY Qty: 90 3RF levothyroxine 25 mcg tablet 25 mcg PO QDAY Qty: 90 3RF carvedilol 25 mg tablet 25 mg PO BID Qty: 180 3RF atorvastatin 40 mg tablet 40 mg PO QHS Qty: 90 3RF losartan 50 mg tablet 50 mg PO QDAY Qty: 90 3RF Trelegy Ellipta 200-62.5-25 mcg blister with device 1 inh INHALATION QDAY Qty: 90 3RF calcium 1000/magnesium 500 1 tab PO QDAY 0RF isosorbide mononitrate 60 mg tablet extended release 24 hr 60 mg PO QDAY 0RF bismuth subsalicylate [Pepto-Bismol] 262 mg/15 mL suspension 524 mg PO Q30-60M PRN (Reason: Indigestion) 0RF Rx Instructions: do not exceed 8 doses in a 24 hour period (DME) Oxygen See Rx Instructions .Route .MEDSUPPLY Qty: 1 0RF Rx Instructions: As directed Trelegy Ellipta 200-62.5-25 mcg blister with device 0RF amlodipine 5 mg tablet 5 mg PO QDAY Qty: 90 1RF furosemide [Lasix] 40 mg tablet 40 mg PO QDAY Qty: 90 0RF aspirin 81 mg tablet,delayed release (DR/EC) 81 mg PO QDAY 0RF sodium bicarbonate 650 mg tablet 650 mg PO BID Qty: 180 3RF cholecalciferol (vitamin D3) 125 mcg (5,000 unit) tablet 125 mcg (5,000 unit) tablet 125 mcg PO QDAY 0RF prednisone 10 mg Tablet 10 mg PO QDAY 0RF dextromethorphan-guaifenesin [Robafen DM Cough] 10-100 mg/5 mL Liquid 10 ml PO Q4HP PRN (Reason: Cough) Qty: 500 0RF
[2022-02-24] MEDS ORDERED: HYDROmorphone 0.5 MG/0.5 ML SYRINGE IV PRN (18:11)
[2022-02-24] MEDS ORDERED: ONDANSETRON 4 MG/2 ML VIAL IV PRN (18:11)
[2022-02-24] MEDS ORDERED: VANCOMYCIN PER PHARMACY IV SCH (18:11)
[2022-02-24 18:40] LABS: Crystals,Body Fluid None Seen (None Seen)
[2022-02-24 19:26] LABS: Appearance,Synovial Fluid Hazy; Color,Synovial Fluid Orange; Lymphocytes,Synovial Fluid 11 %; Neutrophils,Synovial Fluid 7 % (0-25); Nucleated Cells,Synovial Fld 506 /cumm; Other Cells,Synovial Fluid 82 %
[2022-02-24] MEDS: 0.9 % SODIUM CHLORIDE 1,000 ML IV SCH (21:40)
[2022-02-24] MEDS: SENNOSIDES 1 TABLET PO SCH (21:41)
[2022-02-24] MEDS: DOCUSATE SODIUM 100 MG CAPSULE PO SCH (21:41)
[2022-02-24] MEDS: 0.9 % SODIUM CHLORIDE 10 ML SYRINGE IV SCH (21:41)
[2022-02-25] MEDS: 0.9 % SODIUM CHLORIDE 10 ML SYRINGE IV SCH ×3 (05:45→20:34)
[2022-02-25 06:37] LABS: Basophils # (Auto) 0.03 K/mcL (0.00-0.30); Basophils % (Auto) 0.2 % (0.0-2.0); Eosinophils # (Auto) 0.02 K/mcL (0.00-0.70); Eosinophils % (Auto) 0.2 % (0.0-7.0); Hematocrit 28.3 % (40.1-51.0); Hemoglobin 8.3 g/dL (13.7-17.5); Lymphocytes # (Auto) 1.12 K/mcL (1.50-4.80); Lymphocytes % (Auto) 9.1 % (15.5-49.0); Mean Cell Volume 102.2 fL (80.0-100.0); Mean Corpuscular HGB Conc 29.3 g/dL (31.0-36.0); Mean Platelet Volume 11.6 fL (7.4-10.4); Monocytes # (Auto) 2.48 K/mcL (0.10-0.90); Monocytes % (Auto) 20.2 % (1.0-12.0); Neutrophils % (Auto) 70.3 % (38.0-78.0); Platelet Count 92 K/mcL (140-440); RBC 2.77 M/mcL (4.63-6.08); Red Cell Distribution Width 14.5 % (11.5-14.5); WBC 12.3 K/mcL (4.5-11.0)
[2022-02-25 06:52] LABS: Vancomycin,Random 13.4 ug/mL
[2022-02-25 06:53] LABS: ALT/SGPT 10 U/L (<40); AST/SGOT 23 U/L (<40); Albumin 2.7 gm/dL (3.2-5.2); Alkaline Phosphatase 50 U/L (39-117); Bilirubin,Direct 0.2 mg/dL (<0.3); Bilirubin,Total 0.5 mg/dL (0.1-1.0); Blood Urea Nitrogen 34 mg/dL (8-23); Calcium 8.7 mg/dL (8.6-10.4); Carbon Dioxide 19 mmol/L (22-30); Chloride 95 mmol/L (96-108); Globulin 2.8 gm/dL (2.2-3.7); Glomerular Filtration Rate 31; Glucose 42 mg/dL (70-105); Lactate Dehydrogenase 257 U/L (135-225); Phosphorous 4.4 mg/dL (2.5-4.5); Triglycerides 96 mg/dL (<150); Uric Acid 11.6 mg/dL (2.5-8.0)
--- NOTE | 2022-02-25 08:29 | XRay Report ---
INDICATION: hypoxia TECHNIQUE: AP portable semiupright chest x-ray COMPARISON: Previous chest x-rays dated 11/14/2021, 11/12/2021, 11/11/2021 FINDINGS: Lungs:There is focal density in the left retrocardiac region consistent with left lower lobe volume loss or infiltrate. Pneumonia is possible. Clinical correlation and follow-up radiographs recommended Heart, vascular:There is cardiomegaly, unchanged. Vascularity is prominent consistent pulmonary congestion. There is mild peribronchial thickening which may indicate interstitial edema. No significant septal lines. Mediastinum, nahomy:No mediastinal widening. No hilar mass Pleura:No pleural fluid. No pleural-based mass or calcification Skeletal:Negative. IMPRESSION: 1. Cardiomegaly and pulmonary congestion. Possible mild interstitial edema 2. Left lower lobe density consistent with fire loss or pneumonia Interpreted and Authenticated by: Murphy Bassett 02/25/22
[2022-02-25] MEDS ORDERED: VANCOMYCIN 1,000 MG in 0.9 % SODIUM CHLORIDE 250 ML IV ONE (09:00)
[2022-02-25] MEDS ORDERED: cefTRIAXone 2 GM in DEXTROSE 5% IN WATER 50 ML IV SCH (09:00)
[2022-02-25] MEDS: DOCUSATE SODIUM 100 MG CAPSULE PO SCH ×2 (09:20→20:33)
[2022-02-25] MEDS ORDERED: MAGNESIUM SULFATE 2 GM/50 ML BAG IV ONE (11:00)
[2022-02-25] MEDS: 0.9 % SODIUM CHLORIDE 1,000 ML IV SCH ×3 (11:27→23:13)
[2022-02-25] MEDS: HEPARIN 5,000 UNIT/ML VIAL SQ SCH ×3 (14:43→21:11)
[2022-02-25] MEDS ORDERED: cefTRIAXone 2 GM VIAL IM SCH (16:00)
--- NOTE | 2022-02-25 17:00 | Internal Med Progress Note ---
SUBJECTIVE Subjective Patient information: Note initiated : 02/25/22 at 4:54 pm Service Date, if different from initiated Date: [] Patient: Kike Ramirez 81 y/o M admitted on 02/24/22 for Right Knee Pain. Chief Complaint: [] Interval history: Mr. Ramirez is a 81 year old male with a history of hypertension, hyperlipidemia, coronary artery disease status post stent, peripheral arterial disease status post lower extremity arterial stents, chronic kidney disease stage III, diastolic heart failure, COPD, nocturnal hypoxia, hypothyroidism, gout, jarrell ymyalgia rheumatica on prednisone, right total knee arthroplasty. The patient presented to the emergency department for right knee pain that began on 02/20/2022. The patient also developed chills but does not think he had fevers over the next 2 days. He later developed redness over his right knee. In the emergency department, the patient had a high-grade temperature of 99.1, leukocytosis and an acute on chronic kidney disease injury. The patient's right knee is very tender, swollen and red concerning for septic arthritis. While in the emergency department, the patient underwent an arthrocentesis, fluid was sent for cell count and differential, crystal analysis, Gram stain and cultures. The patient also had blood cultures drawn, he was then started on vancomycin and ceftriaxone. Hospital medicine was consulted for admission. We discussed the plan of care in detail including a focused work-up for septic arthritis which is very possible in this case. We will also evaluate for poss ible gout however given history of right total knee arthroplasty septic arthritis is high in the differential. The patient says that he is previously had an infection in his right knee that required 6 months to treat, he says he also had a prosthetic knee at that time. We also discussed CODE STATUS in detail, the patient wishes to be DNR/DNI. 02/25 Synovial fluid showed 506 synovial nucleated cells, only 7% neutrophils. No organisms seen on Gram stain and no growth to date on synovial fluid culture. No crystal seen in synovial fluid. Awaiting orthopedic surgery recommendations. Physical exam Head: Atraumatic, normal inspection. Eyes: normal appearance, no scleral icterus. Neck: full ROM Respiratory: Nasal cannula oxygen 2 L/min, no respiratory distress. Cardiovascular: normal rate and rhythm, S1, S2. GI/Abdominal: soft, nontender, no guarding. Extremities: Right knee tenderness to active and passive motion. Neurological: CN II-XII intact, intact motor, intact sensation. Psychiatric: normal mood. Skin: Right knee warmth and redness. Constitutional Vitals: Vital Signs Temp Pulse Resp BP Pulse Ox 99.5 F H 66 16 106/68 94 02/25/22 11:39 02/25/22 11:39 02/25/22 11:39 02/25/22 11:39 02/25/22 11:39 Period Temp Pulse Resp BP Sys/Bustamante Pulse Ox Last 24 Hr 98.5 F-99.5 F 65-75 16-20 104-117/54-68 94-98 Intake and Output 02/25/22 02/25/22 02/25/22 05:59 13:59 21:59 Intake Total 350 1890 Output Total 450 Balance -100 1890 Weight 74.208 kg Patient Weight 02/26/22 05:59 Weight 74.208 kg Intake & Output: Intake & Output 02/25/22 02/25/22 02/25/22 05:59 13:59 21:59 Intake Total 350 1890 Output Total 450 Balance -100 1890 Weight 74.208 kg Intake: IV 1350 Sodium Chloride 0.9% 1,000 ml @ 1000 100 mls/hr IV .Q10H KHALIF Rx#: [id number] Vancomycin 1,000 mg In Sodium 250 Chloride 0.9% 250 ml @ 250 mls/ hr IV ONCE ONE Rx#:[id number] Rocephin 2 gm In Dextrose 5% in 50 Water 50 ml @ 100 mls/hr IV Q24H KHALIF Rx#:[id number] Oral 350 540 Output: Void Amount 450 Other: Meal Breakfast Percent of Meal Consumed 75% Feeding Ability Independent Urine Appearance Clear Urine Color Bright Yellow OBJ DATA Labs CBC & Chem 7: 02/25/22 05:33 02/25/22 05:33 Labs: Abnormal Lab Results 02/25/22 02/25/22 02/24/22 05:33 05:33 15:39 WBC 12.3 H RBC 2.77 L Hgb 8.3 L Hct 28.3 L POC Hct 27 L MCV 102.2 H MCHC 29.3 L RDW Plt Count 92 L MPV 11.6 H Lymph % (Auto) 9.1 L Sumner % (Auto) 20.2 H Lymph # (Auto) 1.12 L Sumner # (Auto) 2.48 H Absolute Neutrophils 8.63 H ESR Chloride 95 L Carbon Dioxide 19 L Anion Gap 23.0 H POC BUN 35 H BUN 34 H Creatinine 2.0 H POC Creatinine 2.1 H Glucose 42 L POC Glucose 66 L Uric Acid 11.6 H Magnesium 1.5 L Lactate Dehydrogenase 257 H C-Reactive Protein 24.90 H Total Protein 5.5 L Albumin 2.7 L 02/24/22 15:39 WBC 12.0 H RBC 2.87 L Hgb 8.9 L Hct 28.0 L POC Hct MCV MCHC RDW 14.7 H Plt Count 101 L MPV 11.4 H Lymph % (Auto) 11.5 L Sumner % (Auto) 18.9 H Lymph # (Auto) 1.38 L Sumner # (Auto) 2.27 H Absolute Neutrophils 8.34 H ESR 23 H Chloride Carbon Dioxide Anion Gap POC BUN BUN Creatinine POC Creatinine Glucose POC Glucose Uric Acid Magnesium Lactate Dehydrogenase C-Reactive Protein Total Protein Albumin Meds: Medications Acetaminophen (Acetaminophen 325 Mg Tablet) 650 mg PO Q6HP PRN; Protocol PRN Reason: Per Pain Protocol/Fever > 101 Hydrocodone Bitart/Acetaminophen (Hydrocodone/Apap 5/325mg Tablet) 1 tab PO Q4HP PRN; Protocol PRN Reason: Per Pain Protocol Docusate Sodium (Docusate Sodium 100 Mg Capsule) 100 mg PO BID [facility] Last Admin: 02/25/22 09:20 Dose: 100 mg Documented by: Heparin Sodium (Porcine) (Heparin 5,000 Unit/Ml Vial) 5,000 unit SQ Q12 [facility] Last Admin: 02/25/22 14:43 Dose: Not Given Documented by: Hydromorphone HCl (Hydromorphone 0.5 Mg/0.5 Ml Syringe) 0.5 mg IV Q2HP PRN; Protocol PRN Reason: Per Pain Protocol Sodium Chloride (Sodium Chloride 0.9%) 1,000 mls @ 100 mls/hr IV .Q10H [facility] Last Admin: 02/25/22 14:54 Dose: Not Given Documented by: Ceftriaxone Sodium 2 gm/ (Dextrose) 50 mls @ 100 mls/hr IV Q24H [facility] Last Infusion: 02/25/22 09:50 Dose: Infused Documented by: Ondansetron HCl (Ondansetron 4 Mg/2 Ml Vial) 4 mg IV Q6HP PRN PRN Reason: Nausea And Vomiting Senna (Sennosides 1 Tablet) 2 tab PO HS [facility] Last Admin: 02/24/22 21:41 Dose: 2 tab Documented by: Sodium Chloride (0.9 % Sodium Chloride 10 Ml Syringe) 10 ml IV Q8 [facility] Last Admin: 02/25/22 14:19 Dose: Not Given Documented by: Vancomycin HCl (Vancomycin Per Pharmacy) 1 order IV UD [facility]; Protocol A/P Narrative A/P Narrative: Assessment: 81 year old male with a history of hypertension, hyperlipidemia, coronary artery disease status post stent, peripheral arterial disease status post lower extremity arterial stents, chronic kidney disease stage III, diastolic heart failure, COPD, nocturnal hypoxia, hypothyroidism, gout, polymyalgia rheumatica on prednisone, right total knee arthroplasty admitted for acute right knee pain associated with warmth and swelling concerning for possible septic arthritis. #Acute right knee pain, concern for septic arthritis of prosthetic right knee #History of right total knee arthroplasty #Acute on chronic kidney disease stage III injury #Coronary artery disease status post stent #Chronic diastolic heart failure #Moderate mitral regurgitation #COPD with nocturnal hypoxia #Peripheral arterial disease #Hypertension #Hyperlipidemia #Hypothyroidism #Polymyalgia rheumatica on prednisone Plan -Vancomycin and Ceftriaxone for now. -Follow arthrocentesis fluid cell count and differential, crystal analysis, gram stain and culture. -Blood cultures x2. -Orthopedic surgery consult. -Discontinue IV fluid. -Follow renal function and urine output. -Analgesics prn, avoid NSAIDs. -Home medications reconciliation, resume important meds. -Regular diet. -DVT prophylaxis: heparin SQ -Code status: DNR/DNI -Disposition: Probably SNF. Time Spent With Patient Time: Total time spent is greater than 50% in coordination of care (as documented) at patient's floor/unit and/or counseling patient: QUALITY VTE Deep Vein Thrombosis/Pulmonary Embolism Present on Admission: No
[2022-02-25] MEDS: ACETAMINOPHEN 325 MG TABLET PO PRN (17:42)
[2022-02-25 20:21] LABS: Appearance,Synovial Fluid Hazy; Color,Synovial Fluid Orange; Lymphocytes,Synovial Fluid 1 %; Neutrophils,Synovial Fluid 66 % (0-25); Nucleated Cells,Synovial Fld 2200 /cumm; Other Cells,Synovial Fluid 33 %
[2022-02-25] MEDS: SENNOSIDES 1 TABLET PO SCH (20:33)
[2022-02-26] MEDS: 0.9 % SODIUM CHLORIDE 10 ML SYRINGE IV SCH ×3 (05:13→21:39)
[2022-02-26 06:58] LABS: Basophils # (Auto) 0.01 K/mcL (0.00-0.30); Basophils % (Auto) 0.1 % (0.0-2.0); Eosinophils # (Auto) 0.02 K/mcL (0.00-0.70); Eosinophils % (Auto) 0.2 % (0.0-7.0); Hematocrit 29.1 % (40.1-51.0); Hemoglobin 9.2 g/dL (13.7-17.5); Lymphocytes # (Auto) 0.84 K/mcL (1.50-4.80); Lymphocytes % (Auto) 6.7 % (15.5-49.0); Mean Corpuscular HGB Conc 31.6 g/dL (31.0-36.0); Mean Platelet Volume 11.3 fL (7.4-10.4); Monocytes # (Auto) 2.44 K/mcL (0.10-0.90); Monocytes % (Auto) 19.6 % (1.0-12.0); Neutrophils % (Auto) 73.4 % (38.0-78.0); Platelet Count 94 K/mcL (140-440); RBC 2.97 M/mcL (4.63-6.08); Red Cell Distribution Width 14.8 % (11.5-14.5); WBC 12.5 K/mcL (4.5-11.0)
[2022-02-26] MEDS: ALBUTEROL SULFATE 2.5 MG/3 ML NEBULIZER NEB PRN ×2 (07:16→19:35)
[2022-02-26 07:23] LABS: ALT/SGPT 15 U/L (<40); AST/SGOT 39 U/L (<40); Albumin 2.6 gm/dL (3.2-5.2); Albumin/Globulin Ratio 0.8 (1.0-2.3); Alkaline Phosphatase 72 U/L (39-117); Bilirubin,Direct 0.2 mg/dL (<0.3); Bilirubin,Total 0.5 mg/dL (0.1-1.0); Blood Urea Nitrogen 27 mg/dL (8-23); Calcium 8.3 mg/dL (8.6-10.4); Carbon Dioxide 22 mmol/L (22-30); Chloride 95 mmol/L (96-108); Globulin 3.2 gm/dL (2.2-3.7); Glomerular Filtration Rate 37; Glucose 89 mg/dL (70-105); Lactate Dehydrogenase 303 U/L (135-225); Triglycerides 101 mg/dL (<150); Uric Acid 10.4 mg/dL (2.5-8.0)
[2022-02-26] MEDS: LEVOTHYROXINE 25 MCG TABLET PO SCH (07:32)
[2022-02-26 07:35] LABS: Vancomycin,Random 16.5 ug/mL
--- NOTE | 2022-02-26 07:44 | Consultation ---
DATE OF CONSULTATION: 02/25/2022 HISTORY OF PRESENT ILLNESS: This is a 81-year-old who was seen as a 5 feet 6 inches,163 pound male whose complaint was significant knee pain. This was his right knee with severe pain after Dr. Em has done a total knee revision on his right knee with long stem components. He has redness and swelling over the front of his knee. He has been able to bear weight but very tight to bend the knee. He does not have any history of recent trauma. PAST MEDICAL HISTORY: He has had acute kidney injury, hypoxia, acute pain in his left shoulder, iatrogenic adrenal insufficiencies, secondary hypothyroidism, anemia due to stage IIIA chronic kidney disease, osteopenia, congestive heart failure, colon cancer, alcohol abuse, high risk for fall, steroid dependent person with COPD, foot drop on the right side secondary to Dr. Em's surgery, carpal tunnel syndrome, hypoglycemia, vitamin D3 ____, polymyalgia rheumatica, degenerative joint disease, carotid stenosis to name a few. VITAL SIGNS: On arrival in today are 106/68, pulse 66, respiratory rate is 16, temperature is 99.5, oxygen is 94 with 1 L binasal cannula. ACTIVE HOME MEDICATIONS: Include that of albuterol, amlodipine 5 mg, aspirin 1 p.o. q. day, atorvastatin, bismuth, calcium, carvedilol, dextromethorphan with guaifenesin for cough, furosemide 40 mg p.o. q. day, isosorbide 60 mg tablet q. day, levothyroxine 25 mcg q. day, losartan 50 mg q. day, magnesium oxide, prednisone. PHYSICAL EXAMINATION: GENERAL: The patient is a very pleasant male who is cooperative and gives a good history of the events occurring, fairly in poor condition and in some pain. LUNGS: Have expiratory wheezes. He is on binasal cannula with rhonchi. CARDIOVASCULAR: ____ rate. No murmurs. ABDOMEN: Soft, nontender. EXTREMITIES: He has right knee with erythema that is slightly diminished over the front of his knee. There is some pain with motion but not as extreme. He has a foot drop on the right side secondary to his total knee revision surgery. His skin is pink and warm with poor vascular flow. I cannot palpate a dorsal pedis or posterior tibial pulse on his right leg. LABORATORY DATA: X-rays of the right knee show a long stem revision components from Dr. Em well positioned and actually well secured. There is an effusion externally but does not appear to have a large internal effusion within the knee. DIAGNOSIS: Well positioned revision total knee arthroplasty with cellulitis. I have reviewed the blood work that shows a white count of 506. This does not indicate a septic joint. His CRP is elevated, indicating an infection, but most likely cellulitis. His WSR is 23, differential of the PMNs is only 70% without a significant shift. This indicates the cellulitis occurring in the right leg and can be from avascular event, infection. He is being treated currently with vancomycin. His white count has not responded well and he does not have a significant fever being at 99.5 but he has been taking prednisone and aspirin which may mask the fever. DIAGNOSIS: Cellulitis, right knee, prepatellar bursa or subcutaneous in origin. It does not appear to affect the knee according to the aspirate. There is no growth current and I would recommend continuing the vancomycin to control the swelling and bring down his CRP to acceptable level getting him on p.o. medication and have him followup with Dr. Em as he was the surgeon for this knee. No surgery needed. RBH:rei Job ID: [id number] Doc ID: [id number] Ziggy Hyatt MD
[2022-02-26] MEDS: PANTOPRAZOLE 40 MG TABLET PO SCH (07:58)
[2022-02-26] MEDS: FUROSEMIDE 40 MG TABLET PO SCH (09:50)
[2022-02-26] MEDS: DOCUSATE SODIUM 100 MG CAPSULE PO SCH ×2 (09:50→21:38)
[2022-02-26] MEDS: ISOSORBIDE MONONITRATE 60 MG TAB.XL.24H PO SCH (09:50)
[2022-02-26] MEDS: SODIUM BICARBONATE 650 MG TABLET PO SCH ×2 (09:50→21:38)
[2022-02-26] MEDS: predniSONE 10 MG TABLET PO SCH (09:50)
[2022-02-26] MEDS: ASPIRIN 81 MG TAB.CHEW PO SCH (09:50)
[2022-02-26] MEDS: HEPARIN 5,000 UNIT/ML VIAL SQ SCH ×2 (09:52→22:08)
[2022-02-26] MEDS: Fluticasone-Umeclidin-Vilanter [Trelegy Ellipta] Inhaler INH SCH (09:52)
[2022-02-26] MEDS: ACETAMINOPHEN 325 MG TABLET PO PRN (09:55)
[2022-02-26] MEDS: 0.9 % SODIUM CHLORIDE 1,000 ML IV SCH (09:56)
[2022-02-26] MEDS: VANCOMYCIN 1,000 MG in 0.9 % SODIUM CHLORIDE 250 ML IV SCH (09:57)
--- NOTE | 2022-02-26 16:00 | Internal Med Progress Note ---
SUBJECTIVE Subjective Patient information: Note initiated : 02/26/22 at 3:59 pm Service Date, if different from initiated Date: [] Patient: Kike Ramirez 81 y/o M admitted on 02/24/22 for Right Knee Pain. Chief Complaint: [] Interval history: Mr. Ramirez is a 81 year old male with a history of hypertension, hyperlipidemia, coronary artery disease status post stent, peripheral arterial disease status post lower extremity arterial stents, chronic kidney disease stage III, diastolic heart failure, COPD, nocturnal hypoxia, hypothyroidism, gout, jarrell ymyalgia rheumatica on prednisone, right total knee arthroplasty. The patient presented to the emergency department for right knee pain that began on 02/20/2022. The patient also developed chills but does not think he had fevers over the next 2 days. He later developed redness over his right knee. In the emergency department, the patient had a high-grade temperature of 99.1, leukocytosis and an acute on chronic kidney disease injury. The patient's right knee is very tender, swollen and red concerning for septic arthritis. While in the emergency department, the patient underwent an arthrocentesis, fluid was sent for cell count and differential, crystal analysis, Gram stain and cultures. The patient also had blood cultures drawn, he was then started on vancomycin and ceftriaxone. Hospital medicine was consulted for admission. We discussed the plan of care in detail including a focused work-up for septic arthritis which is very possible in this case. We will also evaluate for poss ible gout however given history of right total knee arthroplasty septic arthritis is high in the differential. The patient says that he is previously had an infection in his right knee that required 6 months to treat, he says he also had a prosthetic knee at that time. We also discussed CODE STATUS in detail, the patient wishes to be DNR/DNI. 02/25 Synovial fluid showed 506 synovial nucleated cells, only 7% neutrophils. No organisms seen on Gram stain and no growth to date on synovial fluid culture. No crystal seen in synovial fluid. Awaiting orthopedic surgery recommendations. 02/26 Synovial fluid analysis from arthrocentesis completed by orthopedic surgery does not support septic arthritis. The patient most likely has cellulitis of over the knee from prepatellar bursa or subcutaneous origin per orthopedic surgery. Discontinued Ceftriaxone, continued Vancomycin. The patient is able to move his knee more now, working with PT. Will need SNF for rehab. Physical exam Head: Atraumatic, normal inspection. Eyes: normal appearance, no scleral icterus. Neck: full ROM Respiratory: Nasal cannula oxygen 2 L/min, no respiratory distress. Cardiovascular: normal rate and rhythm, S1, S2. GI/Abdominal: soft, nontender, no guarding. Extremities: Right knee tenderness to active and passive motion. Neurological: CN II-XII intact, intact motor, intact sensation. Psychiatric: normal mood. Skin: Right knee warmth and redness. Constitutional Vitals: Vital Signs Temp Pulse Resp BP Pulse Ox 98.7 F 77 15 132/74 98 02/26/22 15:54 02/26/22 15:54 02/26/22 15:54 02/26/22 15:54 02/26/22 15:54 Period Temp Pulse Resp BP Sys/Bustamante Pulse Ox Last 24 Hr 98.7 F-100.8 F 65-85 15-26 118-138/57-74 86-98 Intake and Output 02/26/22 02/26/22 02/26/22 05:59 13:59 21:59 Intake Total 1600 1650 400 Output Total 600 375 800 Balance 1000 1275 -400 Intake & Output: Intake & Output 02/26/22 02/26/22 02/26/22 05:59 13:59 21:59 Intake Total 1600 1650 400 Output Total 600 375 800 Balance 1000 1275 -400 Intake: IV 1000 1250 400 Sodium Chloride 0.9% 1,000 ml @ 1000 1000 400 100 mls/hr IV .Q10H [facility] Rx#: [id number] Vancomycin 1,000 mg In Sodium 250 Chloride 0.9% 250 ml @ 250 mls/ hr IV Q24H [facility] Rx#:[id number] Oral 600 400 Output: Void Amount 600 375 800 Other: Meal Breakfast Percent of Meal Consumed 100% Feeding Ability Independent Urine Appearance Clear Clear Clear Urine Color Light Berta Dark Yellow Dark Yellow Urine Odor Normal Normal Normal OBJ DATA Labs CBC & Chem 7: 02/26/22 05:42 02/26/22 05:42 Labs: Abnormal Lab Results 02/26/22 02/26/22 02/26/22 05:42 05:42 05:42 WBC 12.5 H RBC 2.97 L Hgb 9.2 L Hct 29.1 L POC Hct MCV MCHC RDW 14.8 H Plt Count 94 L MPV 11.3 H Lymph % (Auto) 6.7 L [place] % (Auto) 19.6 H Lymph # (Auto) 0.84 L [place] # (Auto) 2.44 H Absolute Neutrophils 9.15 H ESR Sodium 131 L Chloride 95 L Carbon Dioxide Anion Gap POC BUN BUN 27 H Creatinine 1.7 H POC Creatinine Glucose POC Glucose Uric Acid 10.4 H Calcium 8.3 L Magnesium Lactate Dehydrogenase 303 H C-Reactive Protein 35.10 H Total Protein 5.8 L Albumin 2.6 L Albumin/Globulin Ratio 0.8 L Synovial Neutrophils 02/25/22 02/25/22 02/25/22 17:35 05:33 05:33 WBC 12.3 H RBC 2.77 L Hgb 8.3 L Hct 28.3 L POC Hct MCV 102.2 H MCHC 29.3 L RDW Plt Count 92 L MPV 11.6 H Lymph % (Auto) 9.1 L [place] % (Auto) 20.2 H Lymph # (Auto) 1.12 L [place] # (Auto) 2.48 H Absolute Neutrophils 8.63 H ESR Sodium Chloride 95 L Carbon Dioxide 19 L Anion Gap 23.0 H POC BUN BUN 34 H Creatinine 2.0 H POC Creatinine Glucose 42 L POC Glucose Uric Acid 11.6 H Calcium Magnesium 1.5 L Lactate Dehydrogenase 257 H C-Reactive Protein Total Protein 5.5 L Albumin 2.7 L Albumin/Globulin Ratio Synovial Neutrophils 66 H 02/24/22 02/24/22 15:39 15:39 WBC 12.0 H RBC 2.87 L Hgb 8.9 L Hct 28.0 L POC Hct 27 L MCV MCHC RDW 14.7 H Plt Count 101 L MPV 11.4 H Lymph % (Auto) 11.5 L [place] % (Auto) 18.9 H Lymph # (Auto) 1.38 L [place] # (Auto) 2.27 H Absolute Neutrophils 8.34 H ESR 23 H Sodium Chloride Carbon Dioxide Anion Gap POC BUN 35 H BUN Creatinine POC Creatinine 2.1 H Glucose POC Glucose 66 L Uric Acid Calcium Magnesium Lactate Dehydrogenase C-Reactive Protein 24.90 H Total Protein Albumin Albumin/Globulin Ratio Synovial Neutrophils Meds: Medications Acetaminophen (Acetaminophen 325 Mg Tablet) 650 mg PO Q6HP PRN; Protocol PRN Reason: Per Pain Protocol/Fever > 101 Last Admin: 02/26/22 09:55 Dose: 650 mg Documented by: Hydrocodone Bitart/Acetaminophen (Hydrocodone/Apap 5/325mg Tablet) 1 tab PO Q4HP PRN; Protocol PRN Reason: Per Pain Protocol Albuterol Sulfate (Albuterol Sulfate 2.5 Mg/3 Ml Nebulizer) 2.5 mg NEB Q6H PRN PRN Reason: shortness of breath or wheezing Last Admin: 02/26/22 07:16 Dose: 2.5 mg Documented by: Aspirin (Aspirin 81 Mg Tab.Chew) 81 mg PO DAILY [facility] Last Admin: 02/26/22 09:50 Dose: 81 mg Documented by: Atorvastatin Calcium (Atorvastatin 40 Mg Tablet) 40 mg PO QHS [facility] Docusate Sodium (Docusate Sodium 100 Mg Capsule) 100 mg PO BID [facility] Last Admin: 02/26/22 09:50 Dose: 100 mg Documented by: Furosemide (Furosemide 40 Mg Tablet) 40 mg PO QDAY [facility] Last Admin: 02/26/22 09:50 Dose: 40 mg Documented by: Heparin Sodium (Porcine) (Heparin 5,000 Unit/Ml Vial) 5,000 unit SQ Q12 [facility] Last Admin: 02/26/22 09:52 Dose: Not Given Documented by: Hydromorphone HCl (Hydromorphone 0.5 Mg/0.5 Ml Syringe) 0.5 mg IV Q2HP PRN; Protocol PRN Reason: Per Pain Protocol Vancomycin HCl 1,000 mg/ (Sodium Chloride) 250 mls @ 250 mls/hr IV Q24H [facility] Last Infusion: 02/26/22 11:00 Dose: Infused Documented by: Isosorbide Mononitrate (Isosorbide Mononitrate 60 Mg Tab.Xl.24h) 60 mg PO QDAY [facility] Last Admin: 02/26/22 09:50 Dose: 60 mg Documented by: Levothyroxine Sodium (Levothyroxine 25 Mcg Tablet) 25 mcg PO QDAY [facility] Last Admin: 02/26/22 07:32 Dose: 25 mcg Documented by: Ondansetron HCl (Ondansetron 4 Mg/2 Ml Vial) 4 mg IV Q6HP PRN PRN Reason: Nausea And Vomiting Pantoprazole Sodium (Pantoprazole 40 Mg Tablet) 40 mg PO QDAY [facility] Last Admin: 02/26/22 07:58 Dose: 40 mg Documented by: Fluticasone- Umeclidin-Vilanter [ Trelegy Ellipta] Inhaler 1 dose INH QDAY [facility] Last Admin: 02/26/22 09:52 Dose: Not Given Documented by: Prednisone (Prednisone 10 Mg Tablet) 10 mg PO QAC [facility] Last Admin: 02/26/22 09:50 Dose: 10 mg Documented by: Senna (Sennosides 1 Tablet) 2 tab PO [facility] Last Admin: 02/25/22 20:33 Dose: 2 tab Documented by: Sodium Bicarbonate (Sodium Bicarbonate 650 Mg Tablet) 650 mg PO BID [facility] Last Admin: 02/26/22 09:50 Dose: 650 mg Documented by: Sodium Chloride (0.9 % Sodium Chloride 10 Ml Syringe) 10 ml IV Q8 [facility] Last Admin: 02/26/22 13:12 Dose: Not Given Documented by: Vancomycin HCl (Vancomycin Per Pharmacy) 1 order IV UD [facility]; Protocol A/P Narrative A/P Narrative: Assessment: 81 year old male with a history of hypertension, hyperlipidemia, coronary artery disease status post stent, peripheral arterial disease status post lower extremity arterial stents, chronic kidney disease stage III, diastolic heart failure, COPD, nocturnal hypoxia, hypothyroidism, gout, polymyalgia rheumatica on prednisone, right total knee arthroplasty admitted for acute right knee pain associated with warmth and swelling concerning for possible septic arthritis. #Cellulitis or right knee #History of right total knee arthroplasty #Acute on chronic kidney disease stage III injury #Coronary artery disease status post stent #Chronic diastolic heart failure #Moderate mitral regurgitation #COPD with nocturnal hypoxia #Peripheral arterial disease #Hypertension #Hyperlipidemia #Hypothyroidism #Polymyalgia rheumatica on prednisone Plan -Vancomycin for now discontinued Ceftriaxone. -Follow arthrocentesis fluid cell count and differential, crystal analysis, gram stain and culture. -Blood cultures x2. -Orthopedic surgery consult. -Follow renal function and urine output. -Analgesics prn, avoid NSAIDs. -Home medications reconciliation, resume important meds. -Regular diet. -DVT prophylaxis: heparin SQ -Code status: DNR/DNI -Disposition: Probably SNF. Time Spent With Patient Time: Total time spent is greater than 50% in coordination of care (as documented) at patient's floor/unit and/or counseling patient: QUALITY VTE Deep Vein Thrombosis/Pulmonary Embolism Present on Admission: No
[2022-02-26] MEDS: SENNOSIDES 1 TABLET PO SCH (21:38)
[2022-02-26] MEDS: ATORVASTATIN 40 MG TABLET PO SCH (21:38)
[2022-02-26] MEDS: HYDROcodone/APAP 5/325MG TABLET PO PRN (21:57)
[2022-02-27] MEDS: ALBUTEROL SULFATE 2.5 MG/3 ML NEBULIZER NEB PRN ×3 (05:06→20:41)
[2022-02-27] MEDS: 0.9 % SODIUM CHLORIDE 10 ML SYRINGE IV SCH ×3 (05:06→20:42)
[2022-02-27 06:57] LABS: Basophils # (Auto) 0.01 K/mcL (0.00-0.30); Basophils % (Auto) 0.1 % (0.0-2.0); Eosinophils # (Auto) 0.02 K/mcL (0.00-0.70); Eosinophils % (Auto) 0.2 % (0.0-7.0); Hematocrit 28.5 % (40.1-51.0); Hemoglobin 8.8 g/dL (13.7-17.5); Lymphocytes # (Auto) 0.44 K/mcL (1.50-4.80); Mean Cell Volume 98.6 fL (80.0-100.0); Mean Corpuscular HGB Conc 30.9 g/dL (31.0-36.0); Mean Platelet Volume 11.4 fL (7.4-10.4); Monocytes # (Auto) 1.19 K/mcL (0.10-0.90); Monocytes % (Auto) 10.8 % (1.0-12.0); Neutrophils % (Auto) 84.9 % (38.0-78.0); Platelet Count 95 K/mcL (140-440); RBC 2.89 M/mcL (4.63-6.08); Red Cell Distribution Width 14.6 % (11.5-14.5)
[2022-02-27] MEDS: PANTOPRAZOLE 40 MG TABLET PO SCH (07:06)
[2022-02-27] MEDS: LEVOTHYROXINE 25 MCG TABLET PO SCH (07:42)
[2022-02-27] MEDS: HEPARIN 5,000 UNIT/ML VIAL SQ SCH ×2 (08:19→20:40)
[2022-02-27] MEDS: Fluticasone-Umeclidin-Vilanter [Trelegy Ellipta] Inhaler INH SCH (08:20)
[2022-02-27] MEDS: DOCUSATE SODIUM 100 MG CAPSULE PO SCH ×2 (08:29→20:39)
[2022-02-27] MEDS: FUROSEMIDE 40 MG TABLET PO SCH (08:29)
[2022-02-27] MEDS: SODIUM BICARBONATE 650 MG TABLET PO SCH ×2 (08:29→20:41)
[2022-02-27] MEDS: ISOSORBIDE MONONITRATE 60 MG TAB.XL.24H PO SCH (08:29)
[2022-02-27] MEDS: predniSONE 10 MG TABLET PO SCH (08:29)
[2022-02-27] MEDS: ASPIRIN 81 MG TAB.CHEW PO SCH (08:29)
[2022-02-27] MEDS: HYDROcodone/APAP 5/325MG TABLET PO PRN ×2 (08:30→20:41)
[2022-02-27] MEDS: VANCOMYCIN 1,000 MG in 0.9 % SODIUM CHLORIDE 250 ML IV SCH (08:32)
[2022-02-27 09:52] LABS: ALT/SGPT 14 U/L (<40); AST/SGOT 27 U/L (<40); Albumin 2.7 gm/dL (3.2-5.2); Albumin/Globulin Ratio 0.9 (1.0-2.3); Alkaline Phosphatase 77 U/L (39-117); Bilirubin,Direct 0.3 mg/dL (<0.3); Bilirubin,Total 0.4 mg/dL (0.1-1.0); Blood Urea Nitrogen 26 mg/dL (8-23); Calcium 8.1 mg/dL (8.6-10.4); Carbon Dioxide 25 mmol/L (22-30); Chloride 95 mmol/L (96-108); Glomerular Filtration Rate 37; Glucose 130 mg/dL (70-105); Lactate Dehydrogenase 369 U/L (135-225); Phosphorous 3.1 mg/dL (2.5-4.5); Triglycerides 69 mg/dL (<150); Uric Acid 10.8 mg/dL (2.5-8.0)
--- NOTE | 2022-02-27 10:05 | Orthopedic Progress Note ---
SUBJECTIVE Subjective Patient information: Note initiated : 02/27/22 at 10:00 am Service Date, if different from initiated Date: [] Patient: Kike Ramirez 81 y/o M admitted on 02/24/22 for Right Knee Pain. Chief Complaint: [] Principal diagnosis: less pain Constitutional Vitals: Vital Signs Temp Pulse Resp BP Pulse Ox 98.6 F 75 18 121/62 98 02/27/22 07:55 02/27/22 07:55 02/27/22 07:55 02/27/22 07:55 02/27/22 07:55 Period Temp Pulse Resp BP Sys/Bustamante Pulse Ox Last 24 Hr 98.6 F-99.6 F 69-77 14-20 121-136/62-74 96-99 Intake and Output 02/26/22 02/27/22 02/27/22 21:59 05:59 13:59 Intake Total 400 800 Output Total 800 400 600 Balance -400 400 -600 Weight 166 lb Intake & Output: Intake & Output 02/26/22 02/27/22 02/27/22 21:59 05:59 13:59 Intake Total 400 800 Output Total 800 400 600 Balance -400 400 -600 Weight 166 lb Intake: IV 400 Sodium Chloride 0.9% 1,000 ml @ 400 100 mls/hr IV .Q10H [facility] Rx#: [id number] Oral 800 Output: Void Amount 800 400 600 Other: Urine Appearance Clear Clear Clear Urine Color Dark Yellow Dark Yellow Dark Yellow Urine Odor Normal Normal OBJ DATA Labs CBC & Chem 7: 02/27/22 05:32 02/27/22 08:10 Labs: Abnormal Lab Results 02/27/22 02/27/22 02/26/22 08:10 05:32 05:42 WBC RBC 2.89 L Hgb 8.8 L Hct 28.5 L POC Hct MCV MCHC 30.9 L RDW 14.6 H Plt Count 95 L MPV 11.4 H Neut % (Auto) 84.9 H Lymph % (Auto) 4.0 L [place] % (Auto) Lymph # (Auto) 0.44 L [place] # (Auto) 1.19 H Absolute Neutrophils 9.36 H ESR Sodium 132 L Potassium 3.1 L Chloride 95 L Carbon Dioxide Anion Gap POC BUN BUN 26 H Creatinine 1.7 H POC Creatinine Glucose 130 H POC Glucose Uric Acid 10.8 H Calcium 8.1 L Magnesium Direct Bilirubin 0.3 H Lactate Dehydrogenase 369 H C-Reactive Protein 32.20 H 35.10 H Total Protein 5.7 L Albumin 2.7 L Albumin/Globulin Ratio 0.9 L Synovial Neutrophils 02/26/22 02/26/22 02/25/22 05:42 05:42 17:35 WBC 12.5 H RBC 2.97 L Hgb 9.2 L Hct 29.1 L POC Hct MCV MCHC RDW 14.8 H Plt Count 94 L MPV 11.3 H Neut % (Auto) Lymph % (Auto) 6.7 L [place] % (Auto) 19.6 H Lymph # (Auto) 0.84 L [place] # (Auto) 2.44 H Absolute Neutrophils 9.15 H ESR Sodium 131 L Potassium Chloride 95 L Carbon Dioxide Anion Gap POC BUN BUN 27 H Creatinine 1.7 H POC Creatinine Glucose POC Glucose Uric Acid 10.4 H Calcium 8.3 L Magnesium Direct Bilirubin Lactate Dehydrogenase 303 H C-Reactive Protein Total Protein 5.8 L Albumin 2.6 L Albumin/Globulin Ratio 0.8 L Synovial Neutrophils 66 H 02/25/22 02/25/22 02/24/22 05:33 05:33 15:39 WBC 12.3 H RBC 2.77 L Hgb 8.3 L Hct 28.3 L POC Hct 27 L MCV 102.2 H MCHC 29.3 L RDW Plt Count 92 L MPV 11.6 H Neut % (Auto) Lymph % (Auto) 9.1 L [place] % (Auto) 20.2 H Lymph # (Auto) 1.12 L [place] # (Auto) 2.48 H Absolute Neutrophils 8.63 H ESR Sodium Potassium Chloride 95 L Carbon Dioxide 19 L Anion Gap 23.0 H POC BUN 35 H BUN 34 H Creatinine 2.0 H POC Creatinine 2.1 H Glucose 42 L POC Glucose 66 L Uric Acid 11.6 H Calcium Magnesium 1.5 L Direct Bilirubin Lactate Dehydrogenase 257 H C-Reactive Protein 24.90 H Total Protein 5.5 L Albumin 2.7 L Albumin/Globulin Ratio Synovial Neutrophils 02/24/22 15:39 WBC 12.0 H RBC 2.87 L Hgb 8.9 L Hct 28.0 L POC Hct MCV MCHC RDW 14.7 H Plt Count 101 L MPV 11.4 H Neut % (Auto) Lymph % (Auto) 11.5 L [place] % (Auto) 18.9 H Lymph # (Auto) 1.38 L [place] # (Auto) 2.27 H Absolute Neutrophils 8.34 H ESR 23 H Sodium Potassium Chloride Carbon Dioxide Anion Gap POC BUN BUN Creatinine POC Creatinine Glucose POC Glucose Uric Acid Calcium Magnesium Direct Bilirubin Lactate Dehydrogenase C-Reactive Protein Total Protein Albumin Albumin/Globulin Ratio Synovial Neutrophils Meds: Medications Acetaminophen (Acetaminophen 325 Mg Tablet) 650 mg PO Q6HP PRN; Protocol PRN Reason: Per Pain Protocol/Fever > 101 Last Admin: 02/26/22 09:55 Dose: 650 mg Documented by: Hydrocodone Bitart/Acetaminophen (Hydrocodone/Apap 5/325mg Tablet) 1 tab PO Q4HP PRN; Protocol PRN Reason: Per Pain Protocol Last Admin: 02/27/22 08:30 Dose: 1 tab Documented by: Albuterol Sulfate (Albuterol Sulfate 2.5 Mg/3 Ml Nebulizer) 2.5 mg NEB Q6H PRN PRN Reason: shortness of breath or wheezing Last Admin: 02/27/22 05:06 Dose: 2.5 mg Documented by: Aspirin (Aspirin 81 Mg Tab.Chew) 81 mg PO DAILY [facility] Last Admin: 02/27/22 08:29 Dose: 81 mg Documented by: Atorvastatin Calcium (Atorvastatin 40 Mg Tablet) 40 mg PO QHS [facility] Last Admin: 02/26/22 21:38 Dose: 40 mg Documented by: Docusate Sodium (Docusate Sodium 100 Mg Capsule) 100 mg PO BID [facility] Last Admin: 02/27/22 08:29 Dose: 100 mg Documented by: Furosemide (Furosemide 40 Mg Tablet) 40 mg PO QDAY [facility] Last Admin: 02/27/22 08:29 Dose: 40 mg Documented by: Heparin Sodium (Porcine) (Heparin 5,000 Unit/Ml Vial) 5,000 unit SQ Q12 [facility] Last Admin: 02/27/22 08:19 Dose: Not Given Documented by: Hydromorphone HCl (Hydromorphone 0.5 Mg/0.5 Ml Syringe) 0.5 mg IV Q2HP PRN; Protocol PRN Reason: Per Pain Protocol Vancomycin HCl 1,000 mg/ (Sodium Chloride) 250 mls @ 250 mls/hr IV Q24H [facility] Last Admin: 02/27/22 08:32 Dose: 250 mls/hr Documented by: Isosorbide Mononitrate (Isosorbide Mononitrate 60 Mg Tab.Xl.24h) 60 mg PO QDAY [facility] Last Admin: 02/27/22 08:29 Dose: 60 mg Documented by: Levothyroxine Sodium (Levothyroxine 25 Mcg Tablet) 25 mcg PO QDAY [facility] Last Admin: 02/27/22 07:42 Dose: 25 mcg Documented by: Ondansetron HCl (Ondansetron 4 Mg/2 Ml Vial) 4 mg IV Q6HP PRN PRN Reason: Nausea And Vomiting Pantoprazole Sodium (Pantoprazole 40 Mg Tablet) 40 mg PO QDAY [facility] Last Admin: 02/27/22 07:06 Dose: 40 mg Documented by: Fluticasone- Umeclidin-Vilanter [ Trelegy Ellipta] Inhaler 1 dose INH QDAY [facility] Last Admin: 02/27/22 08:20 Dose: Not Given Documented by: Prednisone (Prednisone 10 Mg Tablet) [address] [facility] Last Admin: 02/27/22 08:29 Dose: 10 mg Documented by: Senna (Sennosides 1 Tablet) 2 tab PO [facility] Last Admin: 02/26/22 21:38 Dose: 2 tab Documented by: Sodium Bicarbonate (Sodium Bicarbonate 650 Mg Tablet) 650 mg PO BID [facility] Last Admin: 02/27/22 08:29 Dose: 650 mg Documented by: Sodium Chloride (0.9 % Sodium Chloride 10 Ml Syringe) 10 ml IV Q8 [facility] Last Admin: 02/27/22 05:06 Dose: 10 ml Documented by: Vancomycin HCl (Vancomycin Per Pharmacy) 1 order IV [facility] [place]; Protocol Impressions Impression: swollen knee with no infection seen ABG Interpretation Interpretation: normal A/P Assessment and plan (1) Acute knee pain: Assessment and plan: walk and move Plan: Pt to move knee Status: Acute Plan no sign of infection in the join with drop foot Narrative A/P Narrative: drop foot Plan of Treatment: fu prn dr ray for foot drop fu for infection dr baker Time Spent With Patient Time: Total time spent is greater than 50% in coordination of care (as documented) at patient's floor/unit and/or counseling patient: Total time spent with greater than 50% in coordination of care (as documented) at patient's floor/unit and/or counseling patient:: less than 15 minutes Critical Care Time: No
--- NOTE | 2022-02-27 14:47 | Internal Med Progress Note ---
SUBJECTIVE Subjective Patient information: Note initiated : 02/27/22 at 2:45 pm Service Date, if different from initiated Date: [] Patient: Kike Ramirez 81 y/o M admitted on 02/24/22 for Right Knee Pain. Chief Complaint: [] Principal diagnosis: less pain Interval history: Mr. Ramirez is a 81 year old male with a history of hypertension, hyperlipidemia, coronary artery disease status post stent, peripheral arterial disease status post lower extremity arterial stents, chronic kidney disease stage III, diastolic heart failure, COPD, nocturnal hypoxia, hypothyroidism, gout, polymyalgia rheumatica on prednisone, right total knee arthroplasty. The patient presented to the emergency department for right knee pain that began on 02/20/2022. The patient also developed chills but does not think he had fevers over the next 2 days. He later developed redness over his right knee. In the emergency department, the patient had a high-grade temperature of 99.1, leukocytosis and an acute on chronic kidney disease injury. The patient's right knee is very tender, swollen and red concerning for septic arthritis. While in the emergency department, the patient underwent an arthrocentesis, fluid was sent for cell count and differential, crystal analysis, Gram stain and cultures. The patient also had blood cultures drawn, he was then started on vancomycin and ceftriaxone. Hospital medicine was consulted for admission. We discussed the plan of care in detail including a focused work-up for septic arthritis which is very possible in this case. We will also evaluate for possible gout however given history of right total knee arthroplasty septic arthritis is high in the differential. The patient says that he is previously had an infection in his right knee that required 6 months to treat, he says he also had a prosthetic knee at that time. We also discussed CODE STATUS in detail, the patient wishes to be DNR/DNI. 02/25 Synovial fluid showed 506 synovial nucleated cells, only 7% neutrophils. No organisms seen on Gram stain and no growth to date on synovial fluid culture. No crystal seen in synovial fluid. Awaiting orthopedic surgery recommendations. 02/26 Synovial fluid analysis from arthrocentesis completed by orthopedic surgery does not support septic arthritis. The patient most likely has cellulitis of over the knee from prepatellar bursa or subcutaneous origin per orthopedic surgery. Discontinued Ceftriaxone, continued Vancomycin. The patient is able to move his knee more now, working with PT. Will need SNF for rehab. 02/27 Lasix 40 mg IV x2, appears somewhat volume overloaded after IV fluid for initial cellulitis treatment. CRP down trending now, leukocytosis has resolved, afebril. Likely transition to oral antibiotic for cellulitis soon to complete outpatient treatment. Awaiting placement. Physical exam Head: Atraumatic, normal inspection. Eyes: normal appearance, no scleral icterus. Neck: full ROM Respiratory: Nasal cannula oxygen 2 L/min, no respiratory distress. Cardiovascular: normal rate and rhythm, S1, S2. GI/Abdominal: soft, nontender, no guarding. Extremities: Right knee tenderness to active and passive motion. Neurological: CN II-XII intact, intact motor, intact sensation. Psychiatric: normal mood. Skin: Right knee warmth and redness. Constitutional Vitals: Vital Signs Temp Pulse Resp BP Pulse Ox 98 F 77 18 126/67 95 02/27/22 11:32 02/27/22 14:30 02/27/22 14:30 02/27/22 11:32 02/27/22 14:30 Period Temp Pulse Resp BP Sys/Bustamante Pulse Ox Last 24 Hr 98 F-99.2 F 69-77 14-20 121-136/62-74 95-99 Intake and Output 02/27/22 02/27/22 02/27/22 05:59 13:59 21:59 Intake Total 800 250 Output Total 400 600 Balance 400 -350 Intake & Output: Intake & Output 02/27/22 02/27/22 02/27/22 05:59 13:59 21:59 Intake Total 800 250 Output Total 400 600 Balance 400 -350 Intake: IV 250 Vancomycin 1,000 mg In Sodium 250 Chloride 0.9% 250 ml @ 250 mls/ hr IV Q24H [facility] Rx#:[id number] Oral 800 Output: Void Amount 400 600 Other: Urine Appearance Clear Clear Urine Color Dark Yellow Dark Yellow Urine Odor Normal OBJ DATA Labs CBC & Chem 7: 02/27/22 05:32 02/27/22 08:10 Labs: Abnormal Lab Results 02/27/22 02/27/22 02/26/22 08:10 05:32 05:42 WBC RBC 2.89 L Hgb 8.8 L Hct 28.5 L POC Hct MCV MCHC 30.9 L RDW 14.6 H Plt Count 95 L MPV 11.4 H Neut % (Auto) 84.9 H Lymph % (Auto) 4.0 L Green % (Auto) Lymph # (Auto) 0.44 L Green # (Auto) 1.19 H Absolute Neutrophils 9.36 H ESR Sodium 132 L Potassium 3.1 L Chloride 95 L Carbon Dioxide Anion Gap POC BUN BUN 26 H Creatinine 1.7 H POC Creatinine Glucose 130 H POC Glucose Uric Acid 10.8 H Calcium 8.1 L Magnesium Direct Bilirubin 0.3 H Lactate Dehydrogenase 369 H C-Reactive Protein 32.20 H 35.10 H Total Protein 5.7 L Albumin 2.7 L Albumin/Globulin Ratio 0.9 L Synovial Neutrophils 02/26/22 02/26/22 02/25/22 05:42 05:42 17:35 WBC 12.5 H RBC 2.97 L Hgb 9.2 L Hct 29.1 L POC Hct MCV MCHC RDW 14.8 H Plt Count 94 L MPV 11.3 H Neut % (Auto) Lymph % (Auto) 6.7 L Green % (Auto) 19.6 H Lymph # (Auto) 0.84 L Green # (Auto) 2.44 H Absolute Neutrophils 9.15 H ESR Sodium 131 L Potassium Chloride 95 L Carbon Dioxide Anion Gap POC BUN BUN 27 H Creatinine 1.7 H POC Creatinine Glucose POC Glucose Uric Acid 10.4 H Calcium 8.3 L Magnesium Direct Bilirubin Lactate Dehydrogenase 303 H C-Reactive Protein Total Protein 5.8 L Albumin 2.6 L Albumin/Globulin Ratio 0.8 L Synovial Neutrophils 66 H 02/25/22 02/25/22 02/24/22 05:33 05:33 15:39 WBC 12.3 H RBC 2.77 L Hgb 8.3 L Hct 28.3 L POC Hct 27 L MCV 102.2 H MCHC 29.3 L RDW Plt Count 92 L MPV 11.6 H Neut % (Auto) Lymph % (Auto) 9.1 L Green % (Auto) 20.2 H Lymph # (Auto) 1.12 L Green # (Auto) 2.48 H Absolute Neutrophils 8.63 H ESR Sodium Potassium Chloride 95 L Carbon Dioxide 19 L Anion Gap 23.0 H POC BUN 35 H BUN 34 H Creatinine 2.0 H POC Creatinine 2.1 H Glucose 42 L POC Glucose 66 L Uric Acid 11.6 H Calcium Magnesium 1.5 L Direct Bilirubin Lactate Dehydrogenase 257 H C-Reactive Protein 24.90 H Total Protein 5.5 L Albumin 2.7 L Albumin/Globulin Ratio Synovial Neutrophils 02/24/22 15:39 WBC 12.0 H RBC 2.87 L Hgb 8.9 L Hct 28.0 L POC Hct MCV MCHC RDW 14.7 H Plt Count 101 L MPV 11.4 H Neut % (Auto) Lymph % (Auto) 11.5 L Green % (Auto) 18.9 H Lymph # (Auto) 1.38 L Green # (Auto) 2.27 H Absolute Neutrophils 8.34 H ESR 23 H Sodium Potassium Chloride Carbon Dioxide Anion Gap POC BUN BUN Creatinine POC Creatinine Glucose POC Glucose Uric Acid Calcium Magnesium Direct Bilirubin Lactate Dehydrogenase C-Reactive Protein Total Protein Albumin Albumin/Globulin Ratio Synovial Neutrophils Meds: Medications Acetaminophen (Acetaminophen 325 Mg Tablet) 650 mg PO Q6HP PRN; Protocol PRN Reason: Per Pain Protocol/Fever > 101 Last Admin: 02/26/22 09:55 Dose: 650 mg Documented by: Hydrocodone Bitart/Acetaminophen (Hydrocodone/Apap 5/325mg Tablet) 1 tab PO Q4HP PRN; Protocol PRN Reason: Per Pain Protocol Last Admin: 02/27/22 08:30 Dose: 1 tab Documented by: Albuterol Sulfate (Albuterol Sulfate 2.5 Mg/3 Ml Nebulizer) 2.5 mg NEB Q6H PRN PRN Reason: shortness of breath or wheezing Last Admin: 02/27/22 14:28 Dose: 2.5 mg Documented by: Aspirin (Aspirin 81 Mg Tab.Chew) 81 mg PO DAILY [facility] Last Admin: 02/27/22 08:29 Dose: 81 mg Documented by: Atorvastatin Calcium (Atorvastatin 40 Mg Tablet) 40 mg PO QHS [facility] Last Admin: 02/26/22 21:38 Dose: 40 mg Documented by: Docusate Sodium (Docusate Sodium 100 Mg Capsule) 100 mg PO BID [facility] Last Admin: 02/27/22 08:29 Dose: 100 mg Documented by: Furosemide (Furosemide 40 Mg/4 Ml Vial) 40 mg IV BIDD [facility] Stop: 02/28/22 08:01 Heparin Sodium (Porcine) (Heparin 5,000 Unit/Ml Vial) 5,000 unit SQ Q12 [facility] Last Admin: 02/27/22 08:19 Dose: Not Given Documented by: Hydromorphone HCl (Hydromorphone 0.5 Mg/0.5 Ml Syringe) 0.5 mg IV Q2HP PRN; Protocol PRN Reason: Per Pain Protocol Vancomycin HCl 1,000 mg/ (Sodium Chloride) 250 mls @ 250 mls/hr IV Q24H [facility] Last Infusion: 02/27/22 09:40 Dose: Infused Documented by: Isosorbide Mononitrate (Isosorbide Mononitrate 60 Mg Tab.Xl.24h) 60 mg PO QDAY [facility] Last Admin: 02/27/22 08:29 Dose: 60 mg Documented by: Levothyroxine Sodium (Levothyroxine 25 Mcg Tablet) 25 mcg PO QDAY [facility] Last Admin: 02/27/22 07:42 Dose: 25 mcg Documented by: Ondansetron HCl (Ondansetron 4 Mg/2 Ml Vial) 4 mg IV Q6HP PRN PRN Reason: Nausea And Vomiting Pantoprazole Sodium (Pantoprazole 40 Mg Tablet) 40 mg PO QDAY [facility] Last Admin: 02/27/22 07:06 Dose: 40 mg Documented by: Fluticasone- Umeclidin-Vilanter [ Trelegy Ellipta] Inhaler 1 dose INH QDAY [facility] Last Admin: 02/27/22 08:20 Dose: Not Given Documented by: Potassium Chloride (Potassium Chloride 20 Meq Tablet) 40 meq PO BID [facility] Stop: 02/27/22 21:01 Prednisone (Pred[facility] 10 Mg Tablet) [facility] Last Admin: 02/27/22 08:29 Dose: 10 mg Documented by: Senna (Sennosides 1 Tablet) 2 tab PO [facility] Last Admin: 02/26/22 21:38 Dose: 2 tab Documented by: Sodium Bicarbonate (Sodium Bicarbonate 650 Mg Tablet) 650 mg PO BID [facility] Last Admin: 02/27/22 08:29 Dose: 650 mg Documented by: Sodium Chloride (0.9 % Sodium Chloride 10 Ml Syringe) 10 ml IV Q8 [facility] Last Admin: 02/27/22 05:06 Dose: 10 ml Documented by: Vancomycin HCl (Vancomycin Per Pharmacy) 1 order IV UD [facility]; Protocol A/P Narrative A/P Narrative: Assessment: 81 year old male with a history of hypertension, hyperlipidemia, coronary artery disease status post stent, peripheral arterial disease status post lower extremity arterial stents, chronic kidney disease stage III, diastolic heart failure, COPD, nocturnal hypoxia, hypothyroidism, gout, polymyalgia rheumatica on prednisone, right total knee arthroplasty admitted for acute right knee pain associated with warmth and swelling concerning for possible septic arthritis. #Cellulitis or right knee #Acute on chronic diastolic heart failure #History of right total knee arthroplasty #Acute on chronic kidney disease stage III injury #Coronary artery disease status post stent #Moderate mitral regurgitation #COPD with nocturnal hypoxia #Peripheral arterial disease #Hypertension #Hyperlipidemia #Hypothyroidism #Polymyalgia rheumatica on prednisone Plan -Start Lasix 40 mg IV BID, monitor renal function, electrolytes, volume statu. -Vancomycin while inpatient, oral antibiotics at discharge to complete 10 days. -Follow blood cultures x2-NGTD. -Orthopedic surgery was consulted. -Analgesics prn, avoid NSAIDs. -Continue important home medication. -Regular diet. -DVT prophylaxis: heparin SQ -Code status: DNR/DNI -Disposition: SNF for rehab, anticipate oral doxycycline and Keflex at discharge to complete treatment for cellulitis. Plan of Treatment: fu prn dr ray for foot drop fu for infection dr baker Time Spent With Patient Time: Total time spent is greater than 50% in coordination of care (as documented) at patient's floor/unit and/or counseling patient: QUALITY VTE Deep Vein Thrombosis/Pulmonary Embolism Present on Admission: No
[2022-02-27] MEDS: FUROSEMIDE 40 MG/4 ML VIAL IV SCH (15:27)
[2022-02-27] MEDS: POTASSIUM CHLORIDE 20 MEQ TABLET PO SCH ×2 (15:27→20:40)
[2022-02-27] MEDS: POLYETHYLENE GLYCOL 3350 17 GM PACKET PO PRN (16:37)
[2022-02-27] MEDS: SENNOSIDES 1 TABLET PO SCH (20:39)
[2022-02-27] MEDS: ATORVASTATIN 40 MG TABLET PO SCH (20:41)
[2022-02-28] MEDS: ALBUTEROL SULFATE 2.5 MG/3 ML NEBULIZER NEB PRN ×3 (03:42→20:49)
[2022-02-28] MEDS: 0.9 % SODIUM CHLORIDE 10 ML SYRINGE IV SCH ×3 (05:32→20:49)
[2022-02-28] MEDS: LEVOTHYROXINE 25 MCG TABLET PO SCH (07:10)
[2022-02-28] MEDS: PANTOPRAZOLE 40 MG TABLET PO SCH (07:10)
[2022-02-28 07:17] LABS: Basophils # (Auto) 0.01 K/mcL (0.00-0.30); Basophils % (Auto) 0.1 % (0.0-2.0); Eosinophils # (Auto) 0 K/mcL (0.00-0.70); Eosinophils % (Auto) 0 % (0.0-7.0); Hematocrit 23.2 % (40.1-51.0); Hemoglobin 7.3 g/dL (13.7-17.5); Lymphocytes # (Auto) 0.92 K/mcL (1.50-4.80); Lymphocytes % (Auto) 10.1 % (15.5-49.0); Mean Cell Volume 95.5 fL (80.0-100.0); Mean Corpuscular HGB Conc 31.5 g/dL (31.0-36.0); Monocytes # (Auto) 1.29 K/mcL (0.10-0.90); Monocytes % (Auto) 14.1 % (1.0-12.0); Neutrophils % (Auto) 75.7 % (38.0-78.0); Platelet Count 128 K/mcL (140-440); RBC 2.43 M/mcL (4.63-6.08); Red Cell Distribution Width 14.5 % (11.5-14.5); WBC 9.1 K/mcL (4.5-11.0)
[2022-02-28 07:34] LABS: Albumin 2.7 gm/dL (3.2-5.2); Blood Urea Nitrogen 31 mg/dL (8-23); Calcium 8.1 mg/dL (8.6-10.4); Carbon Dioxide 24 mmol/L (22-30); Chloride 96 mmol/L (96-108); Glomerular Filtration Rate 37; Glucose 106 mg/dL (70-105); Phosphorous 2.4 mg/dL (2.5-4.5)
[2022-02-28] MEDS: Fluticasone-Umeclidin-Vilanter [Trelegy Ellipta] Inhaler INH SCH (08:23)
[2022-02-28] MEDS: ISOSORBIDE MONONITRATE 60 MG TAB.XL.24H PO SCH (08:36)
[2022-02-28] MEDS: predniSONE 10 MG TABLET PO SCH (08:36)
[2022-02-28] MEDS: SODIUM BICARBONATE 650 MG TABLET PO SCH ×2 (08:36→20:50)
[2022-02-28] MEDS: DOCUSATE SODIUM 100 MG CAPSULE PO SCH ×2 (08:36→20:50)
[2022-02-28] MEDS: ASPIRIN 81 MG TAB.CHEW PO SCH (08:37)
[2022-02-28] MEDS: POLYETHYLENE GLYCOL 3350 17 GM PACKET PO PRN (08:38)
[2022-02-28] MEDS: FUROSEMIDE 40 MG/4 ML VIAL IV SCH (08:40)
[2022-02-28] MEDS: HEPARIN 5,000 UNIT/ML VIAL SQ SCH ×2 (08:43→20:50)
[2022-02-28] MEDS: HYDROcodone/APAP 5/325MG TABLET PO PRN ×2 (08:47→20:50)
[2022-02-28] MEDS: VANCOMYCIN 1,000 MG in 0.9 % SODIUM CHLORIDE 250 ML IV SCH (09:51)
--- NOTE | 2022-02-28 11:00 | Internal Med Progress Note ---
SUBJECTIVE Subjective Patient information: Note initiated : 02/28/22 at 10:58 am Service Date, if different from initiated Date: [] Patient: Kike Ramirez 81 y/o M admitted on 02/24/22 for Right Knee Pain. Chief Complaint: [] Principal diagnosis: less pain Interval history: Mr. Ramirez is a 81 year old male with a history of hypertension, hyperlipidemia, coronary artery disease status post stent, peripheral arterial disease status post lower extremity arterial stents, chronic kidney disease stage III, diastolic heart failure, COPD, nocturnal hypoxia, hypothyroidism, gout, polymyalgia rheumatica on prednisone, right total knee arthroplasty. The patient presented to the emergency department for right knee pain that began on 02/20/2022. The patient also developed chills but does not think he had fevers over the next 2 days. He later developed redness over his right knee. In the emergency department, the patient had a high-grade temperature of 99.1, leukocytosis and an acute on chronic kidney disease injury. The patient's right knee is very tender, swollen and red concerning for septic arthritis. While in the emergency department, the patient underwent an arthrocentesis, fluid was sent for cell count and differential, crystal analysis, Gram stain and cultures. The patient also had blood cultures drawn, he was then started on vancomycin and ceftriaxone. Hospital medicine was consulted for admission. We discussed the plan of care in detail including a focused work-up for septic arthritis which is very possible in this case. We will also evaluate for possible gout however given history of right total knee arthroplasty septic arthritis is high in the differential. The patient says that he is previously had an infection in his right knee that required 6 months to treat, he says he also had a prosthetic knee at that time. We also discussed CODE STATUS in detail, the patient wishes to be DNR/DNI. 02/25 Synovial fluid showed 506 synovial nucleated cells, only 7% neutrophils. No organisms seen on Gram stain and no growth to date on synovial fluid culture. No crystal seen in synovial fluid. Awaiting orthopedic surgery recommendations. 02/26 Synovial fluid analysis from arthrocentesis completed by orthopedic surgery does not support septic arthritis. The patient most likely has cellulitis of over the knee from prepatellar bursa or subcutaneous origin per orthopedic surgery. Discontinued Ceftriaxone, continued Vancomycin. The patient is able to move his knee more now, working with PT. Will need SNF for rehab. 02/27 Lasix 40 mg IV x2, appears somewhat volume overloaded after IV fluid for initial cellulitis treatment. CRP down trending now, leukocytosis has resolved, afebrile. Likely transition to oral antibiotic for cellulitis soon to complete outpatient treatment. Awaiting placement. 02/28 Right knee pain improving, breathing better after receiving a couple doses of Lasix. CRP downtrending now. Will give 1 more dose of Lasix this afternoon and transition to home oral Lasix tomorrow. Hemoglobin 7.3, will recheck this afternoon. Physical exam Head: Atraumatic, normal inspection. Eyes: normal appearance, no scleral icterus. Neck: full ROM Respiratory: Nasal cannula oxygen 2 L/min, no respiratory distress. Cardiovascular: normal rate and rhythm, S1, S2. GI/Abdominal: soft, nontender, no guarding. Extremities: Right knee tenderness to active and passive motion. Neurological: CN II-XII intact, intact motor, intact sensation. Psychiatric: normal mood. Skin: Right knee warmth and redness. Constitutional Vitals: Vital Signs Temp Pulse Resp BP Pulse Ox 98.7 F 85 18 144/73 91 02/28/22 08:00 02/28/22 08:00 02/28/22 08:00 02/28/22 08:00 02/28/22 08:00 Period Temp Pulse Resp BP Sys/Bustamante Pulse Ox Last 24 Hr 98 F-99.5 F 64-85 16-20 125-144/66-77 91-96 Intake and Output 02/27/22 02/28/22 02/28/22 21:59 05:59 13:59 Intake Total 200 1280 118 Output Total 450 1400 475 Balance -250 -120 -357 Weight 75.75 kg Intake & Output: Intake & Output 02/27/22 02/28/22 02/28/22 21:59 05:59 13:59 Intake Total 200 1280 118 Output Total 450 1400 475 Balance -250 -120 -357 Weight 75.75 kg Intake: Nourishment/Supplement quantity 0 (ml) Oral 200 1280 118 Output: Void Amount 450 1400 475 Other: Meal Dinner Breakfast Percent of Meal Consumed 100% 75% Feeding Ability Independent Independent Nourishment/Supplement name Ensure Enlive Urine Appearance Clear Clear Clear Urine Color Pale Bright Yellow Bright Yellow Urine Odor Normal Normal Normal OBJ DATA Labs CBC & Chem 7: 02/28/22 05:37 02/28/22 05:37 Labs: Abnormal Lab Results 02/28/22 02/28/22 02/28/22 08:02 05:37 05:37 WBC RBC 2.43 L Hgb 7.3 L Hct 23.2 L MCHC RDW Plt Count 128 L MPV 11.0 H Neut % (Auto) Lymph % (Auto) 10.1 L Cloud % (Auto) 14.1 H Lymph # (Auto) 0.92 L Cloud # (Auto) 1.29 H Absolute Neutrophils Sodium Potassium Chloride BUN Creatinine Glucose Uric Acid Calcium Phosphorus Direct Bilirubin Lactate Dehydrogenase C-Reactive Protein 20.30 H Total Protein Albumin Albumin/Globulin Ratio Synovial Neutrophils Vancomycin Trough 22.2 H* 02/28/22 02/27/22 02/27/22 05:37 08:10 05:32 WBC RBC 2.89 L Hgb 8.8 L Hct 28.5 L MCHC 30.9 L RDW 14.6 H Plt Count 95 L MPV 11.4 H Neut % (Auto) 84.9 H Lymph % (Auto) 4.0 L Cloud % (Auto) Lymph # (Auto) 0.44 L Cloud # (Auto) 1.19 H Absolute Neutrophils 9.36 H Sodium 132 L 132 L Potassium 3.1 L Chloride 95 L BUN 31 H 26 H Creatinine 1.7 H 1.7 H Glucose 106 H 130 H Uric Acid 10.8 H Calcium 8.1 L 8.1 L Phosphorus 2.4 L Direct Bilirubin 0.3 H Lactate Dehydrogenase 369 H C-Reactive Protein 32.20 H Total Protein 5.7 L Albumin 2.7 L 2.7 L Albumin/Globulin Ratio 0.9 L Synovial Neutrophils Vancomycin Trough 02/26/22 02/26/22 02/26/22 05:42 05:42 05:42 WBC 12.5 H RBC 2.97 L Hgb 9.2 L Hct 29.1 L MCHC RDW 14.8 H Plt Count 94 L MPV 11.3 H Neut % (Auto) Lymph % (Auto) 6.7 L Cloud % (Auto) 19.6 H Lymph # (Auto) 0.84 L Cloud # (Auto) 2.44 H Absolute Neutrophils 9.15 H Sodium 131 L Potassium Chloride 95 L BUN 27 H Creatinine 1.7 H Glucose Uric Acid 10.4 H Calcium 8.3 L Phosphorus Direct Bilirubin Lactate Dehydrogenase 303 H C-Reactive Protein 35.10 H Total Protein 5.8 L Albumin 2.6 L Albumin/Globulin Ratio 0.8 L Synovial Neutrophils Vancomycin Trough 02/25/22 17:35 WBC RBC Hgb Hct MCHC RDW Plt Count MPV Neut % (Auto) Lymph % (Auto) Cloud % (Auto) Lymph # (Auto) Cloud # (Auto) Absolute Neutrophils Sodium Potassium Chloride BUN Creatinine Glucose Uric Acid Calcium Phosphorus Direct Bilirubin Lactate Dehydrogenase C-Reactive Protein Total Protein Albumin Albumin/Globulin Ratio Synovial Neutrophils 66 H Vancomycin Trough Meds: Medications Acetaminophen (Acetaminophen 325 Mg Tablet) 650 mg PO Q6HP PRN; Protocol PRN Reason: Per Pain Protocol/Fever > 101 Last Admin: 02/26/22 09:55 Dose: 650 mg Documented by: Hydrocodone Bitart/Acetaminophen (Hydrocodone/Apap 5/325mg Tablet) 1 tab PO Q4HP PRN; Protocol PRN Reason: Per Pain Protocol Last Admin: 02/28/22 08:47 Dose: 1 tab Documented by: Albuterol Sulfate (Albuterol Sulfate 2.5 Mg/3 Ml Nebulizer) 2.5 mg NEB Q6H PRN PRN Reason: shortness of breath or wheezing Last Admin: 02/28/22 03:42 Dose: 2.5 mg Documented by: Aspirin (Aspirin 81 Mg Tab.Chew) 81 mg PO DAILY [facility] Last Admin: 02/28/22 08:37 Dose: 81 mg Documented by: Atorvastatin Calcium (Atorvastatin 40 Mg Tablet) 40 mg PO QHS [facility] Last Admin: 02/27/22 20:41 Dose: 40 mg Documented by: Docusate Sodium (Docusate Sodium 100 Mg Capsule) 100 mg PO BID [facility] Last Admin: 02/28/22 08:36 Dose: 100 mg Documented by: Heparin Sodium (Porcine) (Heparin 5,000 Unit/Ml Vial) 5,000 unit SQ Q12 [facility] Last Admin: 02/28/22 08:43 Dose: 5,000 unit Documented by: Hydromorphone HCl (Hydromorphone 0.5 Mg/0.5 Ml Syringe) 0.5 mg IV Q2HP PRN; Protocol PRN Reason: Per Pain Protocol Isosorbide Mononitrate (Isosorbide Mononitrate 60 Mg Tab.Xl.24h) 60 mg PO QDAY [facility] Last Admin: 02/28/22 08:36 Dose: 60 mg Documented by: Levothyroxine Sodium (Levothyroxine 25 Mcg Tablet) 25 mcg PO QDAY [facility] Last Admin: 02/28/22 07:10 Dose: 25 mcg Documented by: Ondansetron HCl (Ondansetron 4 Mg/2 Ml Vial) 4 mg IV Q6HP PRN PRN Reason: Nausea And Vomiting Pantoprazole Sodium (Pantoprazole 40 Mg Tablet) 40 mg PO QDAY [facility] Last Admin: 02/28/22 07:10 Dose: 40 mg Documented by: Fluticasone- Umeclidin-Vilanter [ Trelegy Ellipta] Inhaler 1 dose INH QDAY [facility] Last Admin: 02/28/22 08:23 Dose: Not Given Documented by: Polyethylene Glycol (Polyethylene Glycol 3350 17 Gm Packet) 17 gm PO DAILYP PRN PRN Reason: Constipation Last Admin: 02/28/22 08:38 Dose: 17 gm Documented by: Prednisone (Prednisone 10 Mg Tablet) 10 mg PO QAC [facility] Last Admin: 02/28/22 08:36 Dose: 10 mg Documented by: Senna (Sennosides 1 Tablet) 2 tab PO HS [facility] Last Admin: 02/27/22 20:39 Dose: 2 tab Documented by: Sodium Bicarbonate (Sodium Bicarbonate 650 Mg Tablet) 650 mg PO BID [facility] Last Admin: 02/28/22 08:36 Dose: 650 mg Documented by: Sodium Chloride (0.9 % Sodium Chloride 10 Ml Syringe) 10 ml IV Q8 [facility] Last Admin: 02/28/22 05:32 Dose: 10 ml Documented by: Vancomycin HCl (Vancomycin Per Pharmacy) 1 order IV UD [facility]; Protocol A/P Narrative A/P Narrative: Assessment: 81 year old male with a history of hypertension, hyperlipidemia, coronary artery disease status post stent, peripheral arterial disease status post lower extremity arterial stents, chronic kidney disease stage III, diastolic heart failure, COPD, nocturnal hypoxia, hypothyroidism, gout, polymyalgia rheumatica on prednisone, right total knee arthroplasty admitted for acute right knee pain associated with warmth and swelling initially concerning for possible septic arthritis synovial fluid was not suggestive of an infectious process. The orthopedic surgery was consulted felt that this is more likely to be a right knee cellulitis. The patient's cellulitis has improved with vancomycin, the plan is to transition to oral antibiotic therapy at discharge to complete cellulitis treatment. The patient will go to a [facility] facility for rehab pending placement. #Cellulitis or right knee #Acute on chronic diastolic heart failure #Acute on chronic anemia #Chronic thrombocytopenia #History of right total knee arthroplasty #Acute on chronic kidney disease stage III injury #Coronary artery disease status post stent #Moderate mitral regurgitation #COPD with nocturnal hypoxia #Peripheral arterial disease #Hypertension #Hyperlipidemia #Hypothyroidism #Polymyalgia rheumatica on prednisone Plan -Continue Lasix 40 mg IV BID today, transition back to home Lasix 40 mg once daily tomorrow. -Repeat hemoglobin this afternoon. -Vancomycin while inpatient, oral antibiotics at discharge to complete 10 days. -Follow blood cultures x2-NGTD. -Orthopedic surgery was consulted. -Analgesics prn, avoid NSAIDs. -Continue important home medication. -Regular diet. -DVT prophylaxis: heparin SQ -Code status: DNR/DNI -Disposition: SNF for rehab, possibly for 03/01/2022. Anticipate oral doxycycline and Keflex at discharge to complete treatment for cellulitis. Plan of Treatment: fu prn dr ray for foot drop fu for infection dr baker Time Spent With Patient Time: Total time spent is greater than 50% in coordination of care (as documented) at patient's floor/unit and/or counseling patient: QUALITY VTE Deep Vein Thrombosis/Pulmonary Embolism Present on Admission: No
--- NOTE | 2022-02-28 14:28 | Internal Med Progress Note ---
SUBJECTIVE Subjective Patient information: Note initiated : 02/28/22 at 2:25 pm Service Date, if different from initiated Date: [] Patient: Kike Ramirez 81 y/o M admitted on 02/24/22 for Right Knee Pain. Chief Complaint: [] Principal diagnosis: less pain Interval history: Mr. Ramirez is a 81 year old male with a history of hypertension, hyperlipidemia, coronary artery disease status post stent, peripheral arterial disease status post lower extremity arterial stents, chronic kidney disease stage III, diastolic heart failure, COPD, nocturnal hypoxia, hypothyroidism, gout, polymyalgia rheumatica on prednisone, right total knee arthroplasty. The patient presented to the emergency department for right knee pain that began on 02/20/2022. The patient also developed chills but does not think he had fevers over the next 2 days. He later developed redness over his right knee. In the emergency department, the patient had a high-grade temperature of 99.1, leukocytosis and an acute on chronic kidney disease injury. The patient's right knee is very tender, swollen and red concerning for septic arthritis. While in the emergency department, the patient underwent an arthrocentesis, fluid was sent for cell count and differential, crystal analysis, Gram stain and cultures. The patient also had blood cultures drawn, he was then started on vancomycin and ceftriaxone. Hospital medicine was consulted for admission. We discussed the plan of care in detail including a focused work-up for septic arthritis which is very possible in this case. We will also evaluate for possible gout however given history of right total knee arthroplasty septic arthritis is high in the differential. The patient says that he is previously had an infection in his right knee that required 6 months to treat, he says he also had a prosthetic knee at that time. We also discussed CODE STATUS in detail, the patient wishes to be DNR/DNI. 02/25 Synovial fluid showed 506 synovial nucleated cells, only 7% neutrophils. No organisms seen on Gram stain and no growth to date on synovial fluid culture. No crystal seen in synovial fluid. Awaiting orthopedic surgery recommendations. 02/26 Synovial fluid analysis from arthrocentesis completed by orthopedic surgery does not support septic arthritis. The patient most likely has cellulitis of over the knee from prepatellar bursa or subcutaneous origin per orthopedic surgery. Discontinued Ceftriaxone, continued Vancomycin. The patient is able to move his knee more now, working with PT. Will need SNF for rehab. 02/27 Lasix 40 mg IV x2, appears somewhat volume overloaded after IV fluid for initial cellulitis treatment. CRP down trending now, leukocytosis has resolved, afebrile. Likely transition to oral antibiotic for cellulitis soon to complete outpatient treatment. Awaiting placement. 02/28 Right knee pain improving, breathing better after receiving a couple doses of Lasix. CRP downtrending now. Will give 1 more dose of Lasix this afternoon and transition to home oral Lasix tomorrow. Hemoglobin 7.3, will recheck this afternoon. 03/01 Constitutional Vitals: Vital Signs Temp Pulse Resp BP Pulse Ox 99.8 F H 78 20 105/68 95 02/28/22 12:00 02/28/22 12:00 02/28/22 12:00 02/28/22 12:00 02/28/22 12:00 Period Temp Pulse Resp BP Sys/Bustamante Pulse Ox Last 24 Hr 98.4 F-99.8 F 64-85 16-20 105-144/66-77 91-96 Intake and Output 02/28/22 02/28/22 02/28/22 05:59 13:59 21:59 Intake Total 1280 118 Output Total 1400 475 Balance -120 -357 Intake & Output: Intake & Output 02/28/22 02/28/22 02/28/22 05:59 13:59 21:59 Intake Total 1280 118 Output Total 1400 475 Balance -120 -357 Intake: Nourishment/Supplement quantity 0 (ml) Oral 1280 118 Output: Void Amount 1400 475 Other: Meal Breakfast Percent of Meal Consumed 75% Feeding Ability Independent Nourishment/Supplement name Ensure Enlive Urine Appearance Clear Clear Urine Color Bright Yellow Bright Yellow Urine Odor Normal Normal Exam: General: Alert, Awake, No acute Distress Eyes/N/T: EOMI, Head/Neck: neck supple, CV: RRR, No murmurs, Pulm: Clear b/l, no wheezing/rhonchi/rales Abd: soft, nontender, +BS x4 Ext: no clubbing/cyanosis/edema Neuro: Alert, no focal deficits, moves all extremities, Skin: warm/dry OBJ DATA Labs CBC & Chem 7: 02/28/22 05:37 02/28/22 05:37 Labs: Abnormal Lab Results 0402/28/22 02/28/22 08:02 05:37 05:37 WBC RBC 2.43 L Hgb 7.3 L Hct 23.2 L MCHC RDW Plt Count 128 L MPV 11.0 H Neut % (Auto) Lymph % (Auto) 10.1 L [place] % (Auto) 14.1 H Lymph # (Auto) 0.92 L [place] # (Auto) 1.29 H Absolute Neutrophils Sodium Potassium Chloride BUN Creatinine Glucose Uric Acid Calcium Phosphorus Direct Bilirubin Lactate Dehydrogenase C-Reactive Protein 20.30 H Total Protein Albumin Albumin/Globulin Ratio Synovial Neutrophils Vancomycin Trough 22.2 H* 02/28/22 02/27/22 02/27/22 05:37 08:10 05:32 WBC RBC 2.89 L Hgb 8.8 L Hct 28.5 L MCHC 30.9 L RDW 14.6 H Plt Count 95 L MPV 11.4 H Neut % (Auto) 84.9 H Lymph % (Auto) 4.0 L [place] % (Auto) Lymph # (Auto) 0.44 L [place] # (Auto) 1.19 H Absolute Neutrophils 9.36 H Sodium 132 L 132 L Potassium 3.1 L Chloride 95 L BUN 31 H 26 H Creatinine 1.7 H 1.7 H Glucose 106 H 130 H Uric Acid 10.8 H Calcium 8.1 L 8.1 L Phosphorus 2.4 L Direct Bilirubin 0.3 H Lactate Dehydrogenase 369 H C-Reactive Protein 32.20 H Total Protein 5.7 L Albumin 2.7 L 2.7 L Albumin/Globulin Ratio 0.9 L Synovial Neutrophils Vancomycin Trough 02/26/22 02/26/22 02/26/22 05:42 05:42 05:42 WBC 12.5 H RBC 2.97 L Hgb 9.2 L Hct 29.1 L MCHC RDW 14.8 H Plt Count 94 L MPV 11.3 H Neut % (Auto) Lymph % (Auto) 6.7 L [place] % (Auto) 19.6 H Lymph # (Auto) 0.84 L [place] # (Auto) 2.44 H Absolute Neutrophils 9.15 H Sodium 131 L Potassium Chloride 95 L BUN 27 H Creatinine 1.7 H Glucose Uric Acid 10.4 H Calcium 8.3 L Phosphorus Direct Bilirubin Lactate Dehydrogenase 303 H C-Reactive Protein 35.10 H Total Protein 5.8 L Albumin 2.6 L Albumin/Globulin Ratio 0.8 L Synovial Neutrophils Vancomycin Trough 02/25/22 17:35 WBC RBC Hgb Hct MCHC RDW Plt Count MPV Neut % (Auto) Lymph % (Auto) [place] % (Auto) Lymph # (Auto) [place] # (Auto) Absolute Neutrophils Sodium Potassium Chloride BUN Creatinine Glucose Uric Acid Calcium Phosphorus Direct Bilirubin Lactate Dehydrogenase C-Reactive Protein Total Protein Albumin Albumin/Globulin Ratio Synovial Neutrophils 66 H Vancomycin Trough Meds: Medications Acetaminophen (Acetaminophen 325 Mg Tablet) 650 mg PO Q6HP PRN; Protocol PRN Reason: Per Pain Protocol/Fever > 101 Last Admin: 02/26/22 09:55 Dose: 650 mg Documented by: Hydrocodone Bitart/Acetaminophen (Hydrocodone/Apap 5/325mg Tablet) 1 tab PO Q4HP PRN; Protocol PRN Reason: Per Pain Protocol Last Admin: 02/28/22 08:47 Dose: 1 tab Documented by: Albuterol Sulfate (Albuterol Sulfate 2.5 Mg/3 Ml Nebulizer) 2.5 mg NEB Q6H PRN PRN Reason: shortness of breath or wheezing Last Admin: 02/28/22 03:42 Dose: 2.5 mg Documented by: Aspirin (Aspirin 81 Mg Tab.Chew) 81 mg PO DAILY [facility] Last Admin: 02/28/22 08:37 Dose: 81 mg Documented by: Atorvastatin Calcium (Atorvastatin 40 Mg Tablet) 40 mg PO QHS [facility] Last Admin: 02/27/22 20:41 Dose: 40 mg Documented by: Docusate Sodium (Docusate Sodium 100 Mg Capsule) 100 mg PO BID [facility] Last Admin: 02/28/22 08:36 Dose: 100 mg Documented by: Furosemide (Furosemide 40 Mg/4 Ml Vial) 40 mg IV ONCE ONE Stop: 02/28/22 17:01 Furosemide (Furosemide 40 Mg Tablet) 40 mg PO DAILY [facility] Heparin Sodium (Porcine) (Heparin 5,000 Unit/Ml Vial) 5,000 unit SQ Q12 [facility] Last Admin: 02/28/22 08:43 Dose: 5,000 unit Documented by: Hydromorphone HCl (Hydromorphone 0.5 Mg/0.5 Ml Syringe) 0.5 mg IV Q2HP PRN; Protocol PRN Reason: Per Pain Protocol Isosorbide Mononitrate (Isosorbide Mononitrate 60 Mg Tab.Xl.24h) 60 mg PO QDAY [facility] Last Admin: 02/28/22 08:36 Dose: 60 mg Documented by: Levothyroxine Sodium (Levothyroxine 25 Mcg Tablet) 25 mcg PO QDAY [facility] Last Admin: 02/28/22 07:10 Dose: 25 mcg Documented by: Ondansetron HCl (Ondansetron 4 Mg/2 Ml Vial) 4 mg IV Q6HP PRN PRN Reason: Nausea And Vomiting Pantoprazole Sodium (Pantoprazole 40 Mg Tablet) 40 mg PO QDAY [facility] Last Admin: 02/28/22 07:10 Dose: 40 mg Documented by: Fluticasone- Umeclidin-Vilanter [ Trelegy Ellipta] Inhaler 1 dose INH QDAY [facility] Last Admin: 02/28/22 08:23 Dose: Not Given Documented by: Polyethylene Glycol (Polyethylene Glycol 3350 17 Gm Packet) 17 gm PO DAILYP PRN PRN Reason: Constipation Last Admin: 02/28/22 08:38 Dose: 17 gm Documented by: Prednisone ([facility] 10 Mg Tablet) [facility] Last Admin: 02/28/22 08:36 Dose: 10 mg Documented by: Senna (Sennosides 1 Tablet) 2 tab PO HS [facility] Last Admin: 02/27/22 20:39 Dose: 2 tab Documented by: Sodium Bicarbonate (Sodium Bicarbonate 650 Mg Tablet) 650 mg PO BID [facility] Last Admin: 02/28/22 08:36 Dose: 650 mg Documented by: Sodium Chloride (0.9 % Sodium Chloride 10 Ml Syringe) 10 ml IV Q8 [facility] Last Admin: 02/28/22 05:32 Dose: 10 ml Documented by: Vancomycin HCl (Vancomycin Per Pharmacy) 1 order IV UD [facility]; Protocol A/P Narrative A/P Narrative: A: #Cellulitis or right knee: -BC neg #h/o Right TKA: synovial fluid unremarkable #Acute on chronic diastolic CHF: #Acute on chronic anemia: #Chronic thrombocytopenia: #CELIA on CKD III: #CAD w/stent & PAD: #Moderate MR: #COPD w/nocturnal hypoxia( L@home) #HTN/HLD: #Hypothyroidism #Polymyalgia rheumatica: on prednisone Plan -Continue Lasix 40 mg IV BID today, transition back to home Lasix 40 mg once daily tomorrow -Repeat hemoglobin this afternoon -Vancomycin while inpatient, oral antibiotics at discharge to complete 10 days -Orthopedic surgery following -Analgesics prn, avoid NSAIDs -Disposition: SNF for rehab, possibly for 03/01/2022. Anticipate oral doxycycline and Keflex at discharge to complete treatment for cellulitis. -ppx: heparin SQ Code status: DNR/DNI Plan of Treatment: fu prn dr ray for foot drop fu for infection dr baker Time Spent With Patient Time: Total time spent is greater than 50% in coordination of care (as documented) at patient's floor/unit and/or counseling patient: QUALITY VTE Deep Vein Thrombosis/Pulmonary Embolism Present on Admission: No
--- NOTE | 2022-02-28 14:42 | Discharge Summary ---
Discharge Provider Provider Patient information: Note initiated : 02/28/22 at 2:40 pm Service Date, if different from initiated Date: [] Patient: Kike Ramirez 81 y/o M admitted on 02/24/22 for Right Knee Pain. Chief Complaint: [] Date of admission: 02/24/22 18:05 Discharge date: 03/01/22 Primary care physician: Murphy Kyle DO Consults: 02/24/22 Consult to Physician [CONS] Stat Comment: Consulting Provider: Braxton Shannon Reason For Exam: Physician to Consult 02/24/22 18:11 Consult to Physician [CONS] Routine Comment: Consulting Provider: Ziggy Ray Reason For Exam: Physician to Consult Discharge Meds Discharge Medications Home Medications aspirin 81 mg tablet,delayed release 81 mg PO QDAY 10/06/15 [History Confirmed 02/25/22 Last Taken 02/24/22 09:00] calcium 1000/magnesium 500 1 tab PO QDAY 02/05/19 [History Confirmed 02/25/22 Last Taken 02/24/22 09:00] cholecalciferol (vitamin D3) 125 mcg (5,000 unit) tablet 125 mcg PO QDAY 02/21/20 [History Confirmed 02/25/22 Last Taken 02/23/22 21:00] albuterol sulfate 2.5 mg (3 mL) INHALATION Q6H PRN #1080 ml 04/16/20 [Rx Confirmed 02/25/22 Last Taken 02/24/22 21:00] magnesium oxide 400 mg PO QDAY #90 cap 02/18/21 [Rx Confirmed 02/25/22 Last Maycol en 02/24/22 09:00] atorvastatin 40 mg tablet 40 mg PO QHS #90 tab 02/25/21 [Rx Confirmed 02/25/22 Last Taken 02/23/22 21:00] carvedilol 25 mg tablet 25 mg PO BID #180 tab 02/25/21 [Rx Confirmed 02/25/22 Last Taken 02/24/22 09:00] levothyroxine 25 mcg tablet 25 mcg PO QDAY #90 tab 02/25/21 [Rx Confirmed 02/25/22 Last Taken 02/24/22 09:00] pantoprazole 40 mg tablet,delayed release 40 mg PO QDAY #90 tab 02/25/21 [Rx Confirmed 02/25/22 Last Taken 02/24/22 09:00] sodium bicarbonate 650 mg tablet 650 mg PO BID #180 tab 05/06/21 [Rx Confirmed 02/24/22 Last Taken 11/11/21 08:00] isosorbide mononitrate 60 mg tablet,extended release 24 hr 60 mg PO QDAY tab 08/10/21 [History Confirmed 02/25/22 Last Taken 02/24/22 09:00] bismuth subsalicylate 262 mg/15 mL oral suspension (Pepto-Bismol) 524 mg PO Q30- 60M PRN 10/27/21 [History Confirmed 02/25/22 Last Taken 11/11/21 08:00] prednisone 10 mg tablet 10 mg PO QDAY 11/12/21 [History Confirmed 02/24/22 Last Taken 11/11/21 08:00] dextromethorphan-guaifenesin 10 mg-100 mg/5 mL oral liquid (Robafen DM Cough) 10 ml PO Q4HP PRN #500 ml 11/17/21 [Rx Confirmed 02/25/22 Last Taken Unknown] losartan 50 mg tablet 50 mg PO QDAY #90 tab 12/30/21 [Rx Confirmed 02/25/22 Last Taken 02/24/22 09:00] Oxygen #1 ea 01/20/22 [Rx Confirmed 03/01/22 Last Taken Unknown] amlodipine 5 mg tablet 5 mg PO QDAY #90 tab 01/20/22 [Rx Confirmed 02/25/22 Last Taken 02/24/22 09:00] furosemide 40 mg tablet (Lasix) 40 mg PO QDAY #90 tab 01/20/22 [Rx Confirmed 02/25/22 Last Taken 02/23/22 21:00] fluticasone fur. 200 mcg-umeclid 62.5 mcg-vilant 25 mcg inhalat.powder (Trelegy Ellipta) 1 inh INHALATION QDAY #90 ea 02/03/22 [Rx Confirmed 02/25/22 Last Taken 02/24/22 09:00] cephalexin 500 mg capsule 500 mg PO QID #27 cap 02/28/22 [Rx Last Taken Unknown] doxycycline monohydrate 100 mg capsule 100 mg PO BID #11 cap 02/28/22 [Rx Last Taken Unknown] COURSE Hospital Course Hospital course: Mr. Ramirez is a 81 year old male with a history of hypertension, hyperlipidemia, coronary artery disease status post stent, peripheral arterial disease status post lower extremity arterial stents, chronic kidney disease stage III, diastolic heart failure, COPD, nocturnal hypoxia, hypothyroidism, gout, polymyalgia rheumatica on prednisone, right total knee arthroplasty. The patient presented to the emergency department for right knee pain that began on 02/20/2022. The patient also developed chills but does not think he had fevers over the next 2 days. He later developed redness over his right knee. In the emergency department, the patient had a high-grade temperature of 99.1, leukocytosis and an acute on chronic kidney disease injury. The patient's right knee is very tender, swollen and red concerning for septic arthritis. While in the emergency department, the patient underwent an arthrocentesis, fluid was sent for cell count and differential, crystal analysis, Gram stain and cultures. The patient also had blood cultures drawn, he was then started on vancomycin and ceftriaxone. Hospital medicine was consulted for admission. We discussed the plan of care in detail including a focused work-up for septic arthritis which is very possible in this case. We will also evaluate for possible gout however given history of right total knee arthroplasty septic arthritis is high in the differential. The patient says that he is previously had an infection in his right knee that required 6 months to treat, he says he also had a prosthetic knee at that time. We also discussed CODE STATUS in detail, the patient wishes to be DNR/DNI. 02/25 Synovial fluid showed 506 synovial nucleated cells, only 7% neutrophils. No organisms seen on Gram stain and no growth to date on synovial fluid culture. No crystal seen in synovial fluid. Awaiting orthopedic surgery recommendations. 02/26 Synovial fluid analysis from arthrocentesis completed by orthopedic surgery does not support septic arthritis. The patient most likely has cellulitis of over the knee from prepatellar bursa or subcutaneous origin per orthopedic surgery. Discontinued Ceftriaxone, continued Vancomycin. The patient is able to move his knee more now, working with PT. Will need SNF for rehab. 02/27 Lasix 40 mg IV x2, appears somewhat volume overloaded after IV fluid for initial cellulitis treatment. CRP down trending now, leukocytosis has resolved, afebrile. Likely transition to oral antibiotic for cellulitis soon to complete outpatient treatment. Awaiting placement. 02/28 Right knee pain improving, breathing better after receiving a couple doses of Lasix. CRP downtrending now. Will give 1 more dose of Lasix this afternoon and transition to home oral Lasix tomorrow. Hemoglobin 7.3, will recheck this afternoon. 03/01 Patient no new complaints or problems overnight. Hemoglobin stable. A: #Cellulitis of right knee: #h/o Right TKA: synovial fluid unremarkable #Acute on chronic diastolic CHF: #Acute on chronic anemia: #Chronic thrombocytopenia: #CELIA on CKD III: #CAD w/stent & PAD: #Moderate MR: #COPD w/nocturnal hypoxia( L@home) #HTN/HLD: #Hypothyroidism #Polymyalgia rheumatica: on prednisone Plan -Anticipate oral doxycycline and Keflex at discharge to complete treatment for cellulitis. Discharge diagnosis: Right knee cellulitis CHF chronic anemia CELIA Secondary discharge diagnosis: Acute on chronic diastolic heart failure chronic anemia thrombocytopenia acute kidney injury CAD moderate MR COPD hypertension hypothyroidism polymyalgia rheumatica Time Spent with Patient Time attestation: Total time spent providing and/or coordinating discharge services: Time spent: Greater than 30 minutes EXAM Constitutional Vitals: Temp Pulse Resp BP Pulse Ox 99.8 F H 78 20 105/68 95 02/28/22 12:00 02/28/22 12:00 02/28/22 12:00 02/28/22 12:00 02/28/22 12:00 Discharge Data Data Completed and Pending Labs on day of discharge: Labs from last 24 hours 02/28/22 02/28/22 02/28/22 14:00 08:02 05:37 WBC 9.1 RBC 2.43 L Hgb 7.4 L 7.3 L Hct 23.2 L MCV 95.5 MCH 30.0 MCHC 31.5 RDW 14.5 Plt Count 128 L MPV 11.0 H Neut % (Auto) 75.7 Lymph % (Auto) 10.1 L [place] % (Auto) 14.1 H Eos % (Auto) 0 Baso % (Auto) 0.1 Lymph # (Auto) 0.92 L [place] # (Auto) 1.29 H Eos # (Auto) 0 Baso # (Auto) 0.01 Absolute Neutrophils 6.90 Sodium Potassium Chloride Carbon Dioxide Anion Gap BUN Creatinine GFR Calculation Glucose Calcium Phosphorus C-Reactive Protein Albumin Vancomycin Trough 22.2 H* 02/28/22 02/28/22 05:37 05:37 WBC RBC Hgb Hct MCV MCH MCHC RDW Plt Count MPV Neut % (Auto) Lymph % (Auto) [place] % (Auto) Eos % (Auto) Baso % (Auto) Lymph # (Auto) [place] # (Auto) Eos # (Auto) Baso # (Auto) Absolute Neutrophils Sodium 132 L Potassium 4.1 Chloride 96 Carbon Dioxide 24 Anion Gap 12.0 BUN 31 H Creatinine 1.7 H GFR Calculation 37 Glucose 106 H Calcium 8.1 L Phosphorus 2.4 L C-Reactive Protein 20.30 H Albumin 2.7 L Vancomycin Trough Preliminary micro results at discharge 02/24/22 17:43 Blood Culture - Preliminary Blood 02/24/22 17:35 Blood Culture - Preliminary Blood Discharge Plan Patient/Caregiver Discharge Instructions Activity: increase activity as tolerated Diet: Cardiac Prescriptions: New doxycycline monohydrate 100 mg capsule 100 mg PO BID Qty: 11 0RF cephalexin 500 mg capsule 500 mg PO QID Qty: 27 0RF Continued albuterol sulfate 2.5 mg /3 mL (0.083 %) solution for nebulization 2.5 mg INHALATION Q6H PRN (Reason: shortness of breath or wheezing) Qty: 1080 3RF magnesium oxide 400 mg magnesium capsule 400 mg PO QDAY Qty: 90 3RF pantoprazole 40 mg tablet,delayed release (DR/EC) 40 mg PO QDAY Qty: 90 3RF levothyroxine 25 mcg tablet 25 mcg PO QDAY Qty: 90 3RF carvedilol 25 mg tablet 25 mg PO BID Qty: 180 3RF atorvastatin 40 mg tablet 40 mg PO QHS Qty: 90 3RF losartan 50 mg tablet 50 mg PO QDAY Qty: 90 3RF Trelegy Ellipta 200-62.5-25 mcg blister with device 1 inh INHALATION QDAY Qty: 90 3RF calcium 1000/magnesium 500 1 tab PO QDAY 0RF isosorbide mononitrate 60 mg tablet extended release 24 hr 60 mg PO QDAY 0RF bismuth subsalicylate [Pepto-Bismol] 262 mg/15 mL suspension 524 mg PO Q30-60M PRN (Reason: Indigestion) 0RF Rx Instructions: do not exceed 8 doses in a 24 hour period (DME) Oxygen See Rx Instructions .Route .MEDSUPPLY Qty: 1 0RF Rx Instructions: As directed amlodipine 5 mg tablet 5 mg PO QDAY Qty: 90 1RF furosemide [Lasix] 40 mg tablet 40 mg PO QDAY Qty: 90 0RF aspirin 81 mg tablet,delayed release (DR/EC) 81 mg PO QDAY 0RF sodium bicarbonate 650 mg tablet 650 mg PO BID Qty: 180 3RF cholecalciferol (vitamin D3) 125 mcg (5,000 unit) tablet 125 mcg (5,000 unit) tablet 125 mcg PO QDAY 0RF prednisone 10 mg Tablet 10 mg PO QDAY 0RF dextromethorphan-guaifenesin [Robafen DM Cough] 10-100 mg/5 mL Liquid 10 ml PO Q4HP PRN (Reason: Cough) Qty: 500 0RF Follow Up Plan Follow up with: Murphy Kyle DO [Primary Care Provider] - Patient Disposition: Xfer SNF Plan of Treatment: fu prn dr ray for foot drop fu for infection dr baker Prognosis: Fair Rehab Potential: Fair I certify that the patient requires SNF services: Yes Overall status at discharge: patient is progressing back to baseline Discharge Orders: Discharge Order (Routine); Ordered 03/01/22 [facility]/Pulmonary Embolism Present on Admission: No
[2022-02-28] MEDS ORDERED: FUROSEMIDE 40 MG/4 ML VIAL IV ONE (17:00)
[2022-02-28] MEDS: ATORVASTATIN 40 MG TABLET PO SCH (20:49)
[2022-02-28] MEDS: SENNOSIDES 1 TABLET PO SCH (20:50)
[2022-03-01] MEDS: 0.9 % SODIUM CHLORIDE 10 ML SYRINGE IV SCH (05:38)
[2022-03-01 07:31] LABS: Vancomycin,Random 17.4 ug/mL
[2022-03-01] MEDS: predniSONE 10 MG TABLET PO SCH (08:46)
[2022-03-01] MEDS: SODIUM BICARBONATE 650 MG TABLET PO SCH (08:47)
[2022-03-01] MEDS: ASPIRIN 81 MG TAB.CHEW PO SCH (08:47)
[2022-03-01] MEDS: ISOSORBIDE MONONITRATE 60 MG TAB.XL.24H PO SCH (08:47)
[2022-03-01] MEDS: DOCUSATE SODIUM 100 MG CAPSULE PO SCH (08:47)
[2022-03-01] MEDS: PANTOPRAZOLE 40 MG TABLET PO SCH (08:47)
[2022-03-01] MEDS: LEVOTHYROXINE 25 MCG TABLET PO SCH (08:48)
[2022-03-01] MEDS: HEPARIN 5,000 UNIT/ML VIAL SQ SCH (08:48)
[2022-03-01] MEDS: Fluticasone-Umeclidin-Vilanter [Trelegy Ellipta] Inhaler INH SCH (08:48)
[2022-03-01] MEDS ORDERED: VANCOMYCIN 750 MG in 0.9 % SODIUM CHLORIDE 250 ML IV ONE (09:00)
[2022-03-01] MEDS ORDERED: FUROSEMIDE 40 MG TABLET PO SCH (09:00)
[2022-03-01] MEDS: ALBUTEROL SULFATE 2.5 MG/3 ML NEBULIZER NEB PRN (10:17)
== END 2022-03-01 12:35 | DRG 602 ==
LOC: ED 15:13 → MEDSUR 18:05
PROVIDERS: ADMIT Internal Medicine; ATTEND Internal Medicine